=== PATIENT | female | born 1960 | race Caucasian/White ===

== ENCOUNTER 2016-12-13 14:10 | Emergency (ER) | payer BC, OTHER ==
[2016-12-13 14:19] VITALS: BP 146/75; PULSE 74; RESP 20; TEMP 97.8
[2016-12-13] MEDS ORDERED: ONDANSETRON 4 MG ODT STARTER PACK 2 TAB BTL PO STA (15:26)
--- NOTE | 2016-12-13 15:30 | ED ---
General Adult HPI - General Chief complaint: Recheck/Abnormal Lab/Rx Stated complaint: poss infection Time Seen by Provider: 12/13/16 15:11 Source: patient, RN notes reviewed Mode of arrival: ambulatory Limitations: no limitations - History of Present Illness Initial comments: Patient is a 56-year-old female who presents emergency room today with a chief complaint of an abscess located to the left side of her upper thigh. She does admit that she shaved in this area. She states it was A few days ago. Went to urgent care who did try to drain it. States started on Bactrim and states that she took 2 doses felt that her tongue was somewhat numb. States she stopped taking Bactrim yesterday morning. States she talked to the family doctor called in a new prescription but she did not take it. States she was worried because she does not want to have another reaction. She states is also worried that this infection may be getting worse. She states that it is not as read or tenderness was. She is worried that it could be anterior "blood stream". Patient denies any recent fever, chills, shortness of breath, chest pain, back pain, abdominal pain, nausea or vomiting, numbness or tingling, dysuria or hematuria, constipation or diarrhea, headaches or visual changes, or any other complaints. - Related Data Home Medications Medication Instructions Recorded Confirmed Lovastatin [Mevacor] 40 mg PO HS 05/15/14 11/27/14 SUMAtriptan SUCCINATE [Imitrex] 50 mg PO ONCE 05/15/14 11/27/14 ALPRAZolam [Xanax] 0.25 mg PO DAILY PRN 12/13/16 12/13/16 Biotin 5 mg PO DAILY 12/13/16 12/13/16 Cholecalciferol [Vitamin D3] 1,000 unit PO DAILY 12/13/16 12/13/16 Fluticasone Nasal [place] [Flonase 1 spray EA NOSTRIL DAILY 12/13/16 12/13/16 Nasal [place]] HYDROcodone/APAP 5-325MG [[place] 0.5 tab PO Q4H PRN 12/13/16 12/13/16 5-325] L.acidoph,Paracasei, B.lactis 1 cap PO DAILY 12/13/16 12/13/16 [Probiotic] Levothyroxine Sodium [Synthroid] 75 mcg PO DAILY 12/13/16 12/13/16 Loratadine [Claritin] 10 mg PO DAILY PRN 12/13/16 12/13/16 Multivitamins, Thera [Multivitamin 1 tab PO DAILY 12/13/16 12/13/16 (formulary)] Vitamin B Chewable 1 tab PO DAILY 12/13/16 12/13/16 Previous Rx's Medication Instructions Recorded Bacitracin Oint 28.4 gm TOPICAL BID #1 tube 12/13/16 Allergies Allergy/AdvReac Type Severity Reaction Status Date / Time cefuroxime axetil Allergy Unknown Verified 12/13/16 15:16 [From Ceftin] sulfamethoxazole Allergy Unknown Verified 12/13/16 15:16 [From Bactrim] trimethoprim [From Bactrim] Allergy Unknown Verified 12/13/16 15:16 Review of Systems ROS Statement: Those systems with pertinent positive or pertinent negative responses have been documented in the HPI. ROS Other: All systems not noted in ROS Statement are negative. Past Medical History Past Medical History: Hyperlipidemia Additional Past Medical History / Comment(s): hypothyroidism, migraines, History of Any Multi-Drug Resistant Organisms: None Reported Past Surgical History: Section, Hysterectomy Past Psychological History: No Psychological Hx Reported Smoking Status: Former smoker Past Alcohol Use History: None Reported Past Drug Use History: None Reported General Exam - General Exam Comments Initial Comments: General: The patient is awake and alert, in no distress, and does not appear acutely ill. Eye: Pupils are equal, round and reactive to light, extra-ocular movements are intact. No nystagmus. There is normal conjunctiva bilaterally. No signs of icterus. Ears, nose, mouth and throat: There are moist mucous membranes and no oral lesions. Neck: The neck is supple, there is no tenderness or JVD. Cardiovascular: There is a regular rate and rhythm. No murmur, rub or gallop is appreciated. Respiratory: Lungs are clear to auscultation, respirations are non-labored, breath sounds are equal. No wheezes, stridor, rales, or rhonchi. Musculoskeletal: Normal ROM, no tenderness. Strength 5/5. Sensation intact. Pulses equal bilaterally 2+. Neurological: A&O x 3. CN II-XII intact, There are no obvious motor or sensory deficits. Coordination appears grossly intact. Speech is normal. Skin: He does have small abscess located left upper medial thigh. No fluctuance. Local redness. Psychiatric: Cooperative, appropriate mood & affect, normal judgment. Limitations: no limitations Course Vital Signs 12/13/16 14:16 Temperature 97.8 F Pulse Rate 74 Respiratory 20 Rate Blood Pressure 146/75 O2 Sat by Pulse 98 Oximetry Medical Decision Making - Medical Decision Making At this time is no sign for increase or worsening of symptoms. Patient vitals are stable. Patient's only had 2 doses of antibiotic. Patient advised to use new antibiotic as prescribed to discontinue. Prescribed antibiotics. Advised to use a topical antibiotic along with warm compresses to the area. Advised to return to emergency room symptoms increase or worsen. Disposition Clinical Impression: Abscess Disposition: HOME SELF-CARE Condition: Good Instructions: Abscess (ED) Additional Instructions: Please use topical antibiotics as prescribed. Please use antibiotic that was prescribed for the family doctor but discontinue the Bactrim. Please use warm compresses to the affected area. Please follow-up with family doctor in the next 2 days of symptoms have not improved. Please return to emergency room if the symptoms increase or worsen or for any other concerns. Prescriptions: Bacitracin Oint 28.4 gm TOPICAL BID #1 tube Time of Disposition: 15:28
== END 2016-12-13 15:51 | disposition home or self-care (01) ==
LOC: EC 14:10
DX: L02.416 Cutaneous abscess of left lower limb (principal); R20.0 Anesthesia of skin; E78.5 Hyperlipidemia, unspecified; E03.9 Hypothyroidism, unspecified; Z87.891 Personal history of nicotine dependence; Z79.51 Long term (current) use of inhaled steroids; Z79.899 Other long term (current) drug therapy; Z88.1 Allergy status to other antibiotic agents; Z86.69 Personal history of other diseases of the nervous system and sense organs
CPT/HCPCS: 99283; S0119; 99282

== ENCOUNTER → 2018-01-23 | Outpatient (CLI) | payer BC, OTHER ==
--- NOTE | 2018-01-23 15:18 | CT ---
EXAMINATION TYPE: CT brain wo/w con DATE OF EXAM: 01/23/2018 COMPARISON: CT brain June 12, 2010 HISTORY: White cloud over right eye for approximately 3 minutes. Unspecified visual field defects per order. CT DLP: 2149 mGycm Automated exposure control for dose reduction was used. CONTRAST: CT scan of the head is performed without and with IV Contrast, patient injected with 100 mL of Isovue M300. FINDINGS: Noncontrast images show no acute intracranial hemorrhage, mass effect, or midline shift. Zeng-white m atter differentiation is maintained. Ventricles and sulci are normal in size. Postcontrast images jani w no suspicious enhancing intraparenchymal mass. The globes are intact bilaterally. Intraconal fat is preserved. Visualized paranasal sinuses remain clear. IMPRESSION: Unremarkable study. No significant finding is seen to account for patient's symptoms.
== END | disposition home or self-care (01) ==
LOC: RADCTMAIN 12:55
PROVIDERS: ATTEND Family Medicine
DX: H53.40 Unspecified visual field defects (principal)
CPT/HCPCS: 70470; Q9967

== ENCOUNTER 2020-06-22 01:30 | Emergency (ER) | payer BC, OTHER ==
[2020-06-22] MEDS ORDERED: SODIUM CHLORIDE 0.9% 1,000 ML IV STA (01:43)
--- NOTE | 2020-06-22 01:44 | ED ---
Syncope HPI - General Chief Complaint: Fall Stated Complaint: Syncopal Episode Time Seen by Provider: 06/22/20 01:43 Source: patient, RN notes reviewed, old records reviewed Mode of arrival: wheelchair Limitations: no limitations - History of Present Illness Initial Comments: This is a 5-year-old female DF for evaluation of syncopal event. Hour to 2 pr ior to arrival. Patient was at work normal night he began to feel little sweaty, no headache chest pain shortness of breath, patient did fall onto the ground did hit her neck at some neck pain. Patient is no prior history of syncopal event no current headache chest pain or shortness of breath. Patient has been relatively little medical history no history of travel, no current chest pain shortness of breath or abdominal pain. MD Complaint: loss of consciousness, collapsed -: hour(s) Prodromal Symptoms: vision changes, lightheaded, palpitations, diaphoresis -: second(s) Witnessed: yes - by bystander Injuries Sustained Associated with Event: Neck Current Symptoms: back to baseline Context: at rest - Related Data Home Medications Medication Instructions Recorded Confirmed Lovastatin [Mevacor] 40 mg PO HS 05/15/14 12/13/16 SUMAtriptan succinate [Imitrex] 50 mg PO ONCE 05/15/14 12/13/16 ALPRAZolam [Xanax] 0.25 mg PO DAILY PRN 12/13/16 12/13/16 Biotin 5 mg PO DAILY 12/13/16 12/13/16 Cholecalciferol [Vitamin D3] 1,000 unit PO DAILY 12/13/16 12/13/16 Fluticasone Nasal [place] [Flonase 1 spray EA NOSTRIL DAILY 12/13/16 12/13/16 Nasal [place]] HYDROcodone/APAP 5-325MG [[place] 0.5 tab PO Q4H PRN 12/13/16 12/13/16 5-325] L.acidoph,Paracasei, B.lactis 1 cap PO DAILY 12/13/16 12/13/16 [Probiotic] Levothyroxine Sodium [Synthroid] 75 mcg PO DAILY 12/13/16 12/13/16 Loratadine [Claritin] 10 mg PO DAILY PRN 12/13/16 12/13/16 Multivitamins, Thera [Multivitamin 1 tab PO DAILY 12/13/16 12/13/16 (formulary)] Vitamin B Chewable 1 tab PO DAILY 12/13/16 12/13/16 Previous Rx's Medication Instructions Recorded Bacitracin Zinc Oint 28.4 gm TOPICAL BID #1 tube 12/13/16 Allergies Allergy/AdvReac Type Severity Reaction Status Date / Time cefuroxime axetil Allergy Unknown Verified 06/22/20 01:41 [From Ceftin] sulfamethoxazole Allergy Unknown Verified 06/22/20 01:41 [From Bactrim] trimethoprim [From Bactrim] Allergy Unknown Verified 06/22/20 01:41 Review of Systems ROS Statement: Those systems with pertinent positive or pertinent negative responses have been documented in the HPI. ROS Other: All systems not noted in ROS Statement are negative. 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 Absent: scleral icterus, conjunctival injection, periorbital swelling ENT exam: Present: normal exam, mucous membranes moist Neck exam: Present: normal inspection. Absent: tenderness, meningismus, lymphadenopathy Respiratory exam: Present: normal lung sounds bilaterally. Absent: respiratory distress, wheezes, rales, rhonchi, stridor Cardiovascular Exam: Present: regular rate, normal rhythm, normal heart sounds. Absent: systolic murmur, diastolic murmur, rubs, gallop, clicks GI/Abdominal exam: Present: soft, normal bowel sounds. Absent: distended, tenderness, guarding, rebound, rigid Extremities exam: Present: normal inspection, full ROM, normal capillary refill. Absent: tenderness, pedal edema, joint swelling, calf tenderness Back exam: Present: normal inspection Neurological exam: Present: alert, oriented X3, CN II-XII intact Psychiatric exam: Present: normal affect, normal mood Skin exam: Present: warm, dry, intact, normal color. Absent: rash Course Vital Signs 06/22/20 06/22/20 01:32 03:00 Temperature 98 F 98.4 F Pulse Rate 84 91 Respiratory 18 16 Rate Blood Pressure 115/76 112/70 O2 Sat by Pulse 100 100 Oximetry - Reevaluation(s) Reevaluation #1: 06/22/20 03:51 Medical records reviewed Reevaluation #2: 06/22/20 03:51 No recurrent syncope here in the ER Reevaluation #3: 06/22/20 03:51 Patient has no current pain no symptoms, no headache chest pain shortness breath or abdominal pain Reevaluation #4: 06/22/20 03:51 Spoke patient regarding findings and results, feels good for discharge EKG Findings - EKG Comments: EKG Findings:: EKG is sinus rhythm rate of 73 NV 18 QRS 80 QTc 420 Medical Decision Making - Medical Decision Making 60 female DF for evaluation patient Dese for evaluation regards to syncopal event with fall. No injury from fall no cause of syncope found. Patient can be discharged home - Lab Data Result diagrams: 06/22/20 01:55 06/22/20 01:55 Lab Results 06/22/20 06/22/20 06/22/20 Range/Units 01:55 01:55 01:55 WBC 12.0 H (3.8-10.6) k/uL RBC 4.81 (3.80-5.40) m/uL Hgb 13.9 (11.4-16.0) gm/dL Hct 43.2 (34.0-46.0) % MCV 89.8 (80.0-100.0) fL MCH 29.0 (25.0-35.0) pg MCHC 32.3 (31.0-37.0) g/dL RDW 12.4 (11.5-15.5) % Plt Count 372 (150-450) k/uL Neutrophils % 77 % Lymphocytes % 16 % Monocytes % 5 % Eosinophils % 1 % Basophils % 1 % Neutrophils # 9.2 H (1.3-7.7) k/uL Lymphocytes # 2.0 (1.0-4.8) k/uL Monocytes # 0.6 (0-1.0) k/uL Eosinophils # 0.2 (0-0.7) k/uL Basophils # 0.1 (0-0.2) k/uL D-Dimer 0.27 (<0.60) mg/L FEU Sodium 134 L (137-145) mmol/L Potassium 3.8 (3.5-5.1) mmol/L Chloride 99 (98-107) mmol/L Carbon Dioxide 27 (22-30) mmol/L Anion Gap 8 mmol/L BUN 14 (7-17) mg/dL Creatinine 0.72 (0.52-1.04) mg/dL Est GFR (CKD-EPI)AfAm >90 (>60 ml/min/1.73 sqM) Est GFR (CKD-EPI)NonAf >90 (>60 ml/min/1.73 sqM) Glucose 107 H (74-99) mg/dL Calcium 10.1 (8.4-10.2) mg/dL Phosphorus 4.3 (2.5-4.5) mg/dL Magnesium 2.2 (1.6-2.3) mg/dL Total Bilirubin 0.5 (0.2-1.3) mg/dL AST 32 (14-36) U/L ALT 18 (4-34) U/L Alkaline Phosphatase 98 (38-126) U/L Creatine Kinase 62 (30-135) U/L Troponin I (0.000-0.034) ng/mL NT-Pro-B Natriuret Pep pg/mL Total Protein 8.2 (6.3-8.2) g/dL Albumin 5.1 H (3.5-5.0) g/dL 06/22/20 06/22/20 Range/Units 01:55 01:55 WBC (3.8-10.6) k/uL RBC (3.80-5.40) m/uL Hgb (11.4-16.0) gm/dL Hct (34.0-46.0) % MCV (80.0-100.0) fL MCH (25.0-35.0) pg MCHC (31.0-37.0) g/dL RDW (11.5-15.5) % Plt Count (150-450) k/uL Neutrophils % % Lymphocytes % % Monocytes % % Eosinophils % % Basophils % % Neutrophils # (1.3-7.7) k/uL Lymphocytes # (1.0-4.8) k/uL Monocytes # (0-1.0) k/uL Eosinophils # (0-0.7) k/uL Basophils # (0-0.2) k/uL D-Dimer (<0.60) mg/L FEU Sodium (137-145) mmol/L Potassium (3.5-5.1) mmol/L Chloride (98-107) mmol/L Carbon Dioxide (22-30) mmol/L Anion Gap mmol/L BUN (7-17) mg/dL Creatinine (0.52-1.04) mg/dL Est GFR (CKD-EPI)AfAm (>60 ml/min/1.73 sqM) Est GFR (CKD-EPI)NonAf (>60 ml/min/1.73 sqM) Glucose (74-99) mg/dL Calcium (8.4-10.2) mg/dL Phosphorus (2.5-4.5) mg/dL Magnesium (1.6-2.3) mg/dL Total Bilirubin (0.2-1.3) mg/dL AST (14-36) U/L ALT (4-34) U/L Alkaline Phosphatase (38-126) U/L Creatine Kinase (30-135) U/L Troponin I <0.012 (0.000-0.034) ng/mL NT-Pro-B Natriuret Pep 61 pg/mL Total Protein (6.3-8.2) g/dL Albumin (3.5-5.0) g/dL - Radiology Data Radiology results: report reviewed (CT brain C-spine negative for acute disease), image reviewed Disposition Clinical Impression: Syncope, Fall Disposition: HOME SELF-CARE Condition: Good Instructions (If sedation given, give patient instructions): Syncope (ED) Is patient prescribed a controlled substance at d/c from ED?: No Referrals: Chevy Wilson DO [Primary Care Provider] - 1-2 days
[2020-06-22 02:15] LABS: Basophils # (A) 0.1 k/uL (0-0.2); Basophils % (A) 1 %; Eosinophils # (A) 0.2 k/uL (0-0.7); Eosinophils % (A) 1 %; HCT 43.2 % (34.0-46.0); HGB 13.9 gm/dL (11.4-16.0); Lymphocytes % (A) 16 %; MCHC 32.3 g/dL (31.0-37.0); MCV 89.8 fL (80.0-100.0); Mean Platelet Volume 6.7; Monocytes # (A) 0.6 k/uL (0-1.0); Monocytes % (A) 5 %; Neutrophils # (A) 9.2 k/uL (1.3-7.7); Neutrophils % (A) 77 %; Platelet Count 372 k/uL (150-450); RBC 4.81 m/uL (3.80-5.40); RDW 12.4 % (11.5-15.5)
[2020-06-22 02:24] LABS: ALT 18 U/L (4-34); AST 32 U/L (14-36); African American GFR (CKD) >90 (>60 ml/min/1.73 sqM); Albumin 5.1 g/dL (3.5-5.0); Alkaline Phosphatase 98 U/L (38-126); Anion Gap 8 mmol/L; Blood Urea Nitrogen 14 mg/dL (7-17); Calcium 10.1 mg/dL (8.4-10.2); Carbon Dioxide 27 mmol/L (22-30); Chloride 99 mmol/L (98-107); Creatine Kinase 62 U/L (30-135); Glucose 107 mg/dL (74-99); Magnesium 2.2 mg/dL (1.6-2.3); Non-African American GFR(CKD) >90 (>60 ml/min/1.73 sqM); Phosphorus 4.3 mg/dL (2.5-4.5); Potassium 3.8 mmol/L (3.5-5.1); Sodium 134 mmol/L (137-145); Total Bilirubin 0.5 mg/dL (0.2-1.3); Total Protein 8.2 g/dL (6.3-8.2)
--- NOTE | 2020-06-22 02:51 | CT ---
EXAM: CT Head Without Intravenous Contrast CLINICAL HISTORY: Trauma in fall. TECHNIQUE: Axial computed tomography images of the head/brain without intravenous contrast. CTDI is 6 45.285 mGy and DLP is 1039.5 mGy-cm. This CT exam was performed using one or more of the following dose reduction techniques: automated exposure control, adjustment of the mA and/or kV according to patient size, and/or use of iterative reconstruction technique. COMPARISON: No relevant prior studies available. FINDINGS: Brain: Unremarkable. No acute intracranial hemorrhage, edema or abnormal mass-effect. Ventricles: Unremarkable. No ventriculomegaly. Bones/joints: Unremarkable. No acute fracture. Soft tissues: Unremarkable. Sinuses: Unremarkable as visualized. No acute sinusitis. Mastoid air cells: Unremarkable as visualized. No mastoid effusion. IMPRESSION: Negative head/brain CT. EXAM: CT Cervical Spine Without Intravenous Contrast CLINICAL HISTORY: Trauma in fall. TECHNIQUE: Axial computed tomography images of the cervical spine without intravenous contrast. CTDI is 8.585 mGy and DLP is 242.6 mGy-cm. This CT exam was performed using one or more of the following dose reduction techniques: automated exposure control, adjustment of the mA and/or kV according to patient size, and/or use of iterative reconstruction technique. COMPARISON: No relevant prior studies available. FINDINGS: Vertebrae: Unremarkable. No acute fracture. Discs/spinal canal/neural foramina: Mild to moderate degenerative disc disease at multiple levels. No spinal canal stenosis. Soft tissues: Unremarkable. IMPRESSION: No acute findings in the cervical spine.
[2020-06-22 03:50] VITALS: RESP 16
[2020-06-22] MEDS ORDERED: KETOROLAC 15 MG/ML 1 ML VIAL IVP STA (03:50)
[2020-06-22] MEDS ORDERED: ACETAMINOPHEN TAB 500 MG TAB PO STA (03:50)
[2020-06-22 04:08] VITALS: BP 116/67; PULSE 89; TEMP 98
== END 2020-06-22 04:00 | disposition home or self-care (01) ==
LOC: EC 01:30
DX: R55 Syncope and collapse (principal); E78.5 Hyperlipidemia, unspecified; E03.9 Hypothyroidism, unspecified; G43.909 Migraine, unspecified, not intractable, without status migrainosus; M54.2 Cervicalgia; H40.9 Unspecified glaucoma; Z79.899 Other long term (current) drug therapy; Z79.890 Hormone replacement therapy; Z87.891 Personal history of nicotine dependence; Z88.1 Allergy status to other antibiotic agents; Z88.2 Allergy status to sulfonamides; Z86.14 Personal history of Methicillin resistant Staphylococcus aureus infection; W18.39XA Other fall on same level, initial encounter; Y92.69 Other specified industrial and construction area as the place of occurrence of the external cause
CPT/HCPCS: 36415; 93005; 85379; 83880; 80053; 82550; 83735; 84100; 84484; 85025; 72125; 70450; 99285; 96374; 96361; J1885

== ENCOUNTER → 2020-07-21 | Outpatient (CLI) | payer BC, OTHER ==
--- NOTE | 2020-07-30 14:58 | EM ---
7 day event monitor note: Procedure details: Patient worn event monitor for 7 days from 07/21/2020 until 07/28/2020. Findings: Event monitor showed normal sinus rhythm throughout the duration of the 7 days. There were no significant bradycardic episodes or pauses. Fastest heart rate was 150 which corresponded with sinus tachycardia. There were no significant supraventricular tachycardic episodes. No significant ventricular episodes or PVCs. Patient had symptom activated events which corresponded with sinus rhythm. [facility]
== END | disposition home or self-care (01) ==
LOC: RADECHMAIN 11:55
PROVIDERS: ATTEND Family Medicine
DX: R55 Syncope and collapse (principal)
CPT/HCPCS: 93270

== ENCOUNTER → 2020-07-29 | Outpatient (CLI) | payer BC, OTHER ==
--- NOTE | 2020-07-30 15:15 | EEG ---
ELECTROENCEPHALOGRAM REPORT DATE OF SERVICE: 07/29/2020. PREAMBLE: This is a 60-year-old female who had a syncopal spell at work. She was feeling flushed in her neck and started to sweat a lot. She went to the bathroom and woke up a couple of minutes later on the floor. She was taken to the ER. CURRENT MEDICATIONS: Multivitamins, vitamin B, Imitrex, thyroid. EEG FINDINGS: This is a 21-channel routine EEG recording in a patient utilizing 10-20 international system with referential and bipolar montages. Background consists of well developed, well regulated, moderate voltage activity in mixed frequencies of 9-10 hertz alpha with some low-voltage fast frequency beta activity. Background is posterior-dominant and reactive to eye opening and closing. Photic driving response was seen with some flash frequencies. During drowsiness, intermittent left or right temporal theta and sometimes bitemporal theta activity was seen. Some sharply contoured waves were were seen. Deeper stages of sleep were not seen. No definitive focal or generalized epileptiform activity was seen. EKG rhythm lead revealed no obvious arrhythmia. IMPRESSION: This is an abnormal EEG due to intermittent rhythmic and dysrhythmic theta involving bilateral temporal region, independent and bisynchronous. This is suggestive of focal cortical neuronal dysfunction in above-described location. May suggest underlying structural abnormality. Some sharply contoured waves were seen in either temporal region, may suggest underlying cortical irritability. Suggest prolonged EEG for further evaluation. Slightly excessive low voltage fast frequency beta activity was also seen, suggestive of medication effect. MMODL / IJN: [id number] / MTDD
== END | disposition home or self-care (01) ==
LOC: NEUROMAIN 13:42
PROVIDERS: ATTEND Family Medicine
DX: R94.01 Abnormal electroencephalogram [EEG] (principal); R55 Syncope and collapse
CPT/HCPCS: 95816

== ENCOUNTER 2020-09-22 08:29 | Emergency (ER) | payer BC, OTHER ==
[2020-09-22 08:39] VITALS: RESP 18
--- NOTE | 2020-09-22 08:56 | ED ---
ENT HPI - General Chief complaint: ENT Stated complaint: Ear pain and tremors Time Seen by Provider: 09/22/20 08:30 Source: patient, EMS, RN notes reviewed Mode of arrival: EMS Limitations: no limitations - History of Present Illness Initial comments: This is a 60-year-old female with a recent diagnosis of a upper respiratory infection and ear infection and route by EMS today because of no improvement in her sinus congestion and right ear pain and also shaking generally that occurred this morning. 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 No nausea no vomiting shakes were brief. There are bilaterally or not unilateral she denies any focal sensorimotor vascular deficits. No palpitations no cough or phlegm production she does have a soreness about her neck. - Related Data Home Medications Medication Instructions Recorded Confirmed SUMAtriptan succinate [Imitrex] 50 mg PO DAILY PRN 05/15/14 09/22/20 HYDROcodone/APAP 5-325MG [[place] 0.25 tab PO Q4H PRN 12/13/16 09/22/20 5-325] Levothyroxine Sodium [Synthroid] 75 mcg PO DAILY 12/13/16 09/22/20 Multivitamins, Thera [Multivitamin 1 tab PO DAILY 12/13/16 09/22/20 (formulary)] Cholecalciferol [Vitamin D3 (25 1,000 unit PO DAILY 09/22/20 09/22/20 Mcg = 1000 Iu)] Vitamin B Complex 1 cap PO DAILY 09/22/20 09/22/20 Previous Rx's Medication Instructions Recorded Amoxicillin/Potassium Clav 1 tab PO Q12HR 1 Days #20 tab 09/22/20 [Augmentin 875-125 Tablet] Allergies Allergy/AdvReac Type Severity Reaction Status Date / Time cefuroxime axetil Allergy Unknown Verified 09/22/20 10:25 [From Ceftin] sulfamethoxazole Allergy Unknown Verified 09/22/20 10:25 [From Bactrim] trimethoprim [From Bactrim] Allergy Unknown Verified 09/22/20 10:25 Review of Systems ROS Statement: Those systems with pertinent positive or pertinent negative responses have been documented in the HPI. ROS Other: All systems not noted in ROS Statement are negative. Past Medical History Past Medical History: Hyperlipidemia Additional Past Medical History / Comment(s): hypothyroidism, migraines, glycoma History of Any Multi-Drug Resistant Organisms: MRSA Date of last positivie culture/infection: 2018 MDRO Source:: neck Past Surgical History: Section, Hysterectomy Past Psychological History: No Psychological Hx Reported Smoking Status: Former smoker Past Alcohol Use History: None Reported Past Drug Use History: None Reported General Exam - General Exam Comments Initial Comments: This is a well-developed asthenic appearing female who is awake alert oriented 3 Limitations: no limitations General appearance: alert, anxious Head exam: Present: atraumatic, normocephalic, normal inspection Eye exam: Present: normal appearance, PERRL, EOMI. Absent: scleral icterus, conjunctival injection, periorbital swelling ENT exam: Present: other (Both tympanic membranes demonstrate dullness with fluid behind both membranes. Nasal mucosa is boggy erythematous minimal drainage oropharynx reveals hyperemia no exudates.) Neck exam: Present: normal inspection, tenderness (Right cervical lymphadenopathy noted), full ROM, other (No stridor JVD or bruits). Absent: meningismus, lymphadenopathy Respiratory exam: Present: normal lung sounds bilaterally. Absent: respiratory distress, wheezes, rales, rhonchi, stridor Cardiovascular Exam: Present: regular rate, normal rhythm, normal heart sounds. Absent: systolic murmur, diastolic murmur, rubs, gallop, clicks GI/Abdominal exam: Present: soft, normal bowel sounds. Absent: distended, tenderness, guarding, rebound, rigid Extremities exam: Present: normal inspection, full ROM, normal capillary refill. Absent: tenderness, pedal edema, joint swelling, calf tenderness Back exam: Present: normal inspection Neurological exam: Present: alert, oriented X3, CN II-XII intact Psychiatric exam: Present: normal affect, normal mood Skin exam: Present: warm, dry, intact, normal color. Absent: rash Course Vital Signs 09/22/20 09/22/20 08:32 10:39 Temperature 98 F 98.2 F Pulse Rate 86 90 Respiratory 18 18 Rate Blood Pressure 137/90 132/82 O2 Sat by Pulse 100 100 Oximetry Medical Decision Making - Medical Decision Making I did discuss the findings the patient. Patient does have evidence of persistent otitis media with sinusitis. Initial treatment has failed she'll be placed on Augmentin as well as Mucinex we did discuss this. At this time she will also continue her nasal spray. She is a follow-up with her doctor return when necessary this time there seems be no benefit to continuing with oral steroids. - Lab Data Result diagrams: 09/22/20 09:03 09/22/20 09:03 Lab Results 09/22/20 09/22/20 09/22/20 Range/Units 09:03 09:03 09:03 WBC 9.4 (3.8-10.6) k/uL RBC 5.21 (3.80-5.40) m/uL Hgb 15.0 (11.4-16.0) gm/dL Hct 45.3 (34.0-46.0) % MCV 87.0 (80.0-100.0) fL MCH 28.8 (25.0-35.0) pg MCHC 33.1 (31.0-37.0) g/dL RDW 12.6 (11.5-15.5) % Plt Count 527 H (150-450) k/uL MPV 7.0 Neutrophils % 55 % Lymphocytes % 35 % Monocytes % 6 % Eosinophils % 3 % Basophils % 1 % Neutrophils # 5.1 (1.3-7.7) k/uL Lymphocytes # 3.3 (1.0-4.8) k/uL Monocytes # 0.5 (0-1.0) k/uL Eosinophils # 0.2 (0-0.7) k/uL Basophils # 0.1 (0-0.2) k/uL Sodium 140 (137-145) mmol/L Potassium 4.0 (3.5-5.1) mmol/L Chloride 96 L (98-107) mmol/L Carbon Dioxide 33 H (22-30) mmol/L Anion Gap 11 mmol/L BUN 11 (7-17) mg/dL Creatinine 0.68 (0.52-1.04) mg/dL Est GFR (CKD-EPI)AfAm >90 (>60 ml/min/1.73 sqM) Est GFR (CKD-EPI)NonAf >90 (>60 ml/min/1.73 sqM) Glucose 94 (74-99) mg/dL Calcium 10.8 H (8.4-10.2) mg/dL Magnesium 2.1 (1.6-2.3) mg/dL Total Bilirubin 0.5 (0.2-1.3) mg/dL AST 28 (14-36) U/L ALT 24 (4-34) U/L Alkaline Phosphatase 94 (38-126) U/L Creatine Kinase 31 (30-135) U/L Troponin I (0.000-0.034) ng/mL Total Protein 9.1 H (6.3-8.2) g/dL Albumin 5.4 H (3.5-5.0) g/dL Urine Color Colorless Urine Appearance Clear (Clear) Urine pH 7.5 (5.0-8.0) Ur Specific [place] 1.004 (1.001-1.035) Urine Protein Negative (Negative) Urine Glucose (UA) Negative (Negative) Urine Ketones Negative (Negative) Urine Blood Negative (Negative) Urine Nitrite Negative (Negative) Urine Bilirubin Negative (Negative) Urine Urobilinogen <2.0 (<2.0) mg/dL Ur Leukocyte Esterase Negative (Negative) 09/22/20 Range/Units 09:03 WBC (3.8-10.6) k/uL RBC (3.80-5.40) m/uL Hgb (11.4-16.0) gm/dL Hct (34.0-46.0) % MCV (80.0-100.0) fL MCH (25.0-35.0) pg MCHC (31.0-37.0) g/dL RDW (11.5-15.5) % Plt Count (150-450) k/uL MPV Neutrophils % % Lymphocytes % % Monocytes % % Eosinophils % % Basophils % % Neutrophils # (1.3-7.7) k/uL Lymphocytes # (1.0-4.8) k/uL Monocytes # (0-1.0) k/uL Eosinophils # (0-0.7) k/uL Basophils # (0-0.2) k/uL Sodium (137-145) mmol/L Potassium (3.5-5.1) mmol/L Chloride (98-107) mmol/L Carbon Dioxide (22-30) mmol/L Anion Gap mmol/L BUN (7-17) mg/dL Creatinine (0.52-1.04) mg/dL Est GFR (CKD-EPI)AfAm (>60 ml/min/1.73 sqM) Est GFR (CKD-EPI)NonAf (>60 ml/min/1.73 sqM) Glucose (74-99) mg/dL Calcium (8.4-10.2) mg/dL Magnesium (1.6-2.3) mg/dL Total Bilirubin (0.2-1.3) mg/dL AST (14-36) U/L ALT (4-34) U/L Alkaline Phosphatase (38-126) U/L Creatine Kinase (30-135) U/L Troponin I <0.012 (0.000-0.034) ng/mL Total Protein (6.3-8.2) g/dL Albumin (3.5-5.0) g/dL Urine Color Urine Appearance (Clear) Urine pH (5.0-8.0) Ur Specific [place] (1.001-1.035) Urine Protein (Negative) Urine Glucose (UA) (Negative) Urine Ketones (Negative) Urine Blood (Negative) Urine Nitrite (Negative) Urine Bilirubin (Negative) Urine Urobilinogen (<2.0) mg/dL Ur Leukocyte Esterase (Negative) - EKG Data -: EKG Interpreted by Me EKG Comments: Sinus rhythm of 81 appear interval 160 QRS 78 QT since QTC 360/427 evidence of septal infarct of undetermined age. - Radiology Data Radiology results: report reviewed (Imaging reviewed no acute findings), image reviewed Disposition Clinical Impression: Otitis media, Sinusitis Disposition: HOME SELF-CARE Condition: Good Instructions (If sedation given, give patient instructions): Ear Infection (ED), Sinusitis (ED) Additional Instructions: [id number] Mucinex. Continue with your nasal spray. Prescriptions: Amoxicillin/Potassium Clav [Augmentin 875-125 Tablet] 1 tab PO Q12HR 1 Days #20 tab Is patient prescribed a controlled substance at d/c from ED?: No Referrals: Chevy Wilson DO [Primary Care Provider] - 1-2 days
[2020-09-22 09:40] LABS: Basophils # (A) 0.1 k/uL (0-0.2); Basophils % (A) 1 %; Eosinophils # (A) 0.2 k/uL (0-0.7); Eosinophils % (A) 3 %; HCT 45.3 % (34.0-46.0); Lymphocytes # (A) 3.3 k/uL (1.0-4.8); Lymphocytes % (A) 35 %; MCH 28.8 pg (25.0-35.0); MCHC 33.1 g/dL (31.0-37.0); Monocytes # (A) 0.5 k/uL (0-1.0); Monocytes % (A) 6 %; Neutrophils # (A) 5.1 k/uL (1.3-7.7); Neutrophils % (A) 55 %; Platelet Count 527 k/uL (150-450); RBC 5.21 m/uL (3.80-5.40); RDW 12.6 % (11.5-15.5); WBC 9.4 k/uL (3.8-10.6)
[2020-09-22 09:55] LABS: ALT 24 U/L (4-34); African American GFR (CKD) >90 (>60 ml/min/1.73 sqM); Albumin 5.4 g/dL (3.5-5.0); Alkaline Phosphatase 94 U/L (38-126); Carbon Dioxide 33 mmol/L (22-30); Creatine Kinase 31 U/L (30-135); Glucose 94 mg/dL (74-99); Non-African American GFR(CKD) >90 (>60 ml/min/1.73 sqM); Total Protein 9.1 g/dL (6.3-8.2)
--- NOTE | 2020-09-22 09:56 | XR ---
EXAMINATION TYPE: XR chest 2V DATE OF EXAM: 09/22/2020 COMPARISON: Chest x-ray September 06, 2014 HISTORY: Tremors and weakness. TECHNIQUE: Frontal and lateral views of the chest are obtained. FINDINGS: There is mild chronic parenchymal changes bilaterally without suspicious focal air space o pacity, pleural effusion, or pneumothorax seen. The cardiac silhouette size is stable and within nor mal limits. The osseous structures remaining intact. IMPRESSION: No acute pulmonary process. No significant change from prior.
[2020-09-22 09:57] LABS: Appearance,Urine Clear (Clear); Bilirubin,Urine Negative (Negative); Blood,Urine Negative (Negative); Color,Urine Colorless; Glucose,Urine (UA) Negative (Negative); Ketones,Urine Negative (Negative); Leukocyte Esterase,Urine Negative (Negative); Nitrite,Urine Negative (Negative); PH, Urine 7.5 (5.0-8.0); Protein,Urine Negative (Negative); Specific Gravity,Urine 1.004 (1.001-1.035); Urobilinogen,Urine <2.0 mg/dL (<2.0)
[2020-09-22 09:58] LABS: AST 28 U/L (14-36); Anion Gap 11 mmol/L; Blood Urea Nitrogen 11 mg/dL (7-17); Calcium 10.8 mg/dL (8.4-10.2); Chloride 96 mmol/L (98-107); Magnesium 2.1 mg/dL (1.6-2.3); Sodium 140 mmol/L (137-145); Total Bilirubin 0.5 mg/dL (0.2-1.3)
[2020-09-22 10:41] VITALS: BP 132/82; PULSE 90; TEMP 98.2
[2020-09-22] MEDS ORDERED: AMOXIC-POT CLAV 875-125MG 1 EACH TAB PO STA (11:14)
[2020-09-22] MEDS ORDERED: guaiFENesin 600 MG TABLET.ER PO ONE (11:16)
== END 2020-09-22 11:36 | disposition home or self-care (01) ==
LOC: EC 08:29
DX: H66.91 Otitis media, unspecified, right ear (principal); J32.9 Chronic sinusitis, unspecified; E03.9 Hypothyroidism, unspecified; Z79.890 Hormone replacement therapy; Z88.1 Allergy status to other antibiotic agents; Z88.2 Allergy status to sulfonamides; Z87.891 Personal history of nicotine dependence
CPT/HCPCS: 36415; 71046; 80053; 81003; 82550; 83735; 84484; 85025; 87040; 93005; 99284

== ENCOUNTER 2020-11-20 12:18 | Emergency (ER) | payer BC, OTHER ==
[2020-11-20 12:26] VITALS: RESP 18
--- NOTE | 2020-11-20 13:18 | XR ---
EXAMINATION TYPE: XR chest 1V portable DATE OF EXAM: 11/20/2020 COMPARISON: 09/22/2020 HISTORY: Cough TECHNIQUE: Single frontal view of the chest is obtained. FINDINGS the lungs are clear consolidative, interstitial masslike opacity. There is no pleural effusion, pleural thickening or pneumothorax. The heart, pulmonary vasculature, mediastinum and hilum appear normal. The osseous structures and soft tissues are unremarkable. IMPRESSION: No acute cardiopulmonary disease.
--- NOTE | 2020-11-20 13:34 | ED ---
General Adult HPI - General Chief complaint: ENT Stated complaint: Diarrhea/sinus draniage/wants covid test Source: patient Mode of arrival: ambulatory Limitations: no limitations - History of Present Illness Initial comments: 60-year-old female with a past medical history of hypothyroidism, migraines presents to the emergency room for several complaints. Patient's main reason for presenting to the emergency room is for a Covid test. Patient states she was exposed at work. States that she is [facility] a [facility] but does not want to wait. Patient states she has had some congestion that comes and goes. She has had her left ear plugged however this has been going on for 7 months for which she is following with ENT. She has had a slight cough. Today she had 2 episodes of diarrhea. No vomiting. No abdominal pain. No fevers. Patient states she just wants to make sure she does not have Covid because her grandson has asthma and she needs to know if she exposed him.Patient has no other complaints at this time including shortness of breath, chest pain, abdominal pain, nausea or vomiting, headache, or visual changes. - Related Data Home Medications Medication Instructions Recorded Confirmed SUMAtriptan succinate [Imitrex] 50 mg PO DAILY PRN 05/15/14 09/22/20 HYDROcodone/APAP 5-325MG [[place] 0.25 tab PO Q4H PRN 12/13/16 09/22/20 5-325] Levothyroxine Sodium [Synthroid] 75 mcg PO DAILY 12/13/16 09/22/20 Multivitamins, Thera [Multivitamin 1 tab PO DAILY 12/13/16 09/22/20 (formulary)] Cholecalciferol [Vitamin D3 (25 1,000 unit PO DAILY 09/22/20 09/22/20 Mcg = 1000 Iu)] Vitamin B Complex 1 cap PO DAILY 09/22/20 09/22/20 Previous Rx's Medication Instructions Recorded Amoxicillin/Potassium Clav 1 tab PO Q12HR 1 Days #20 tab 09/22/20 [Augmentin 875-125 Tablet] methylPREDNISolone Dose Pack 4 mg PO DIRECTED #21 package 11/20/20 [Medrol Dose Pack] Allergies Allergy/AdvReac Type Severity Reaction Status Date / Time cefuroxime axetil Allergy Unknown Verified 11/20/20 12:26 [From Ceftin] sulfamethoxazole Allergy Unknown Verified 11/20/20 12:26 [From Bactrim] trimethoprim [From Bactrim] Allergy Unknown Verified 11/20/20 12:26 Review of Systems ROS Statement: Those systems with pertinent positive or pertinent negative responses have been documented in the HPI. ROS Other: All systems not noted in ROS Statement are negative. Past Medical History Past Medical History: Hyperlipidemia Additional Past Medical History / Comment(s): hypothyroidism, migraines, glycoma History of Any Multi-Drug Resistant Organisms: MRSA Date of last positivie culture/infection: 2017 MDRO Source:: neck Past Surgical History: Section, Hysterectomy Past Psychological History: No Psychological Hx Reported Smoking Status: Former smoker Past Alcohol Use History: None Reported Past Drug Use History: None Reported General Exam - General Exam Comments Initial Comments: Sitting a chair at bedside, well-appearing Limitations: no limitations General appearance: alert, in no apparent distress Head exam: Present: atraumatic, normocephalic, normal inspection Eye exam: Present: normal appearance, PERRL, EOMI. Absent: scleral icterus, conjunctival injection, periorbital swelling ENT exam: Present: normal exam, normal oropharynx, mucous membranes moist, TM's normal bilaterally, normal external ear exam Neck exam: Present: normal inspection, full ROM. Absent: tenderness, meningismus, lymphadenopathy Respiratory exam: Present: normal lung sounds bilaterally. Absent: respiratory distress, wheezes Cardiovascular Exam: Present: regular rate, normal rhythm, normal heart sounds. Absent: systolic murmur, diastolic murmur, rubs, gallop, clicks GI/Abdominal exam: Present: soft, normal bowel sounds. Absent: distended, tenderness, guarding, rebound, rigid Course Vital Signs 11/20/20 12:23 Temperature 98.4 F Pulse Rate 97 Respiratory 18 Rate Blood Pressure 119/54 O2 Sat by Pulse 100 Oximetry Medical Decision Making - Medical Decision Making Vitals are stable. Patient is well-appearing. Chest x-ray reveals no acute cardiopulmonary disease. Coronavirus is not detected. Patient is requesting a Medrol Dosepak for her ear as this has helped in the past. She is following up with ENT for this. At this time patient likely has a viral upper respiratory infection causing congestion and slight cough. She will return for any worsening symptoms and will otherwise follow-up with her doctor. - Lab Data Lab Results 11/20/20 Range/Units 12:54 Coronavirus (PCR) Not Detected (Not Detectd) Disposition Clinical Impression: Congestion of left ear, Sinus congestion Disposition: HOME SELF-CARE Condition: Good Instructions (If sedation given, give patient instructions): Rhinosinusitis (ED) Additional Instructions: Please take Medrol Dosepak as directed. Continue to use nasal spray. Follow-up with your doctor in one to 2 days. Follow-up at your ENT appointment. Return to the emergency room for any worsening symptoms. Prescriptions: methylPREDNISolone Dose Pack [Medrol Dose Pack] 4 mg PO DIRECTED #21 package Is patient prescribed a controlled substance at d/c from ED?: No Referrals: Chevy Wilson DO [Primary Care Provider] - 1-2 days Time of Disposition: 13:32
[2020-11-20 13:39] VITALS: BP 128/78; PULSE 78; TEMP 97.5
== END 2020-11-20 13:39 | disposition home or self-care (01) ==
LOC: EC 12:18
DX: R09.81 Nasal congestion (principal); H83.8X2 Other specified diseases of left inner ear; R19.7 Diarrhea, unspecified; R05 Cough; Z20.822 Contact with and (suspected) exposure to COVID-19; E03.9 Hypothyroidism, unspecified; G43.909 Migraine, unspecified, not intractable, without status migrainosus; E78.5 Hyperlipidemia, unspecified; Z79.899 Other long term (current) drug therapy; Z79.890 Hormone replacement therapy; Z79.891 Long term (current) use of opiate analgesic; Z88.2 Allergy status to sulfonamides; Z88.1 Allergy status to other antibiotic agents; Z90.710 Acquired absence of both cervix and uterus; Z86.14 Personal history of Methicillin resistant Staphylococcus aureus infection; Z87.891 Personal history of nicotine dependence; Z82.5 Family history of asthma and other chronic lower respiratory diseases
CPT/HCPCS: 71045; 87635; 99284

== ENCOUNTER 2020-11-23 13:03 | Emergency (ER) | payer BC, OTHER ==
[2020-11-23 13:13] VITALS: BP 125/78; PULSE 103; TEMP 98.3
--- NOTE | 2020-11-23 13:59 | ED ---
General Adult HPI - General Chief complaint: Upper Respiratory Infection Stated complaint: revisit - ENT Time Seen by Provider: 11/23/20 13:05 Source: patient, RN notes reviewed, old records reviewed Mode of arrival: ambulatory Limitations: no limitations - History of Present Illness Initial comments: This is a 60-year-old female presents emergency Department complaining that she's had a three-day history of diarrhea and fatigue. Patient states she has quite a bit of exposure to COVID. Patient denies any fever currently which she thinks couple days ago she may have had a fever. Patient denies any cough or congestion or shortness of breath. Patient states she does have a sore throat however. Patient also states that she has a little urinary frequency. Patient denies any abdominal pain. Patient denies any vomiting. Patient denies any chest pain or palpitations. Patient denies lightheadedness or dizziness. - Related Data Home Medications Medication Instructions Recorded Confirmed SUMAtriptan succinate [Imitrex] 50 mg PO DAILY PRN 05/15/14 09/22/20 HYDROcodone/APAP 5-325MG [[place] 0.25 tab PO Q4H PRN 12/13/16 09/22/20 5-325] Levothyroxine Sodium [Synthroid] 75 mcg PO DAILY 12/13/16 09/22/20 Multivitamins, Thera [Multivitamin 1 tab PO DAILY 12/13/16 09/22/20 (formulary)] Cholecalciferol [Vitamin D3 (25 1,000 unit PO DAILY 09/22/20 09/22/20 Mcg = 1000 Iu)] Vitamin B Complex 1 cap PO DAILY 09/22/20 09/22/20 Previous Rx's Medication Instructions Recorded Amoxicillin/Potassium Clav 1 tab PO Q12HR 1 Days #20 tab 09/22/20 [Augmentin 875-125 Tablet] methylPREDNISolone Dose Pack 4 mg PO DIRECTED #21 package 11/20/20 [Medrol Dose Pack] Allergies Allergy/AdvReac Type Severity Reaction Status Date / Time cefuroxime axetil Allergy Unknown Verified 11/23/20 13:13 [From Ceftin] sulfamethoxazole Allergy Unknown Verified 11/23/20 13:13 [From Bactrim] trimethoprim [From Bactrim] Allergy Unknown Verified 11/23/20 13:13 Review of Systems ROS Statement: Those systems with pertinent positive or pertinent negative responses have been documented in the HPI. ROS Other: All systems not noted in ROS Statement are negative. Past Medical History Past Medical History: Hyperlipidemia, Thyroid Disorder Additional Past Medical History / Comment(s): hypothyroidism, migraines, glycoma History of Any Multi-Drug Resistant Organisms: MRSA Date of last positivie culture/infection: 2017 MDRO Source:: neck Past Surgical History: Section, Hysterectomy Past Psychological History: No Psychological Hx Reported Smoking Status: Former smoker Past Alcohol Use History: None Reported Past Drug Use History: None Reported General Exam - General Exam Comments Initial Comments: GENERAL: Patient is well-developed and well-nourished. Patient is nontoxic and well- hydrated and is in no acute distress. ENT: Neck is soft and supple. No significant lymphadenopathy is noted. Oropharynx is clear. Moist mucous membranes. Neck has full range of motion without eliciting any pain. EYES: The sclera were anicteric and conjunctiva were pink and moist. Extraocular movements were intact and pupils were equal round and reactive to light. Eyelids were unremarkable. PULMONARY: Unlabored respirations. Good breath sounds bilaterally. No audible rales rhonchi or wheezing was noted. CARDIOVASCULAR: There is a regular rate and rhythm without any murmurs gallops or rubs. ABDOMEN: Soft and nontender with normal bowel sounds. SKIN: Skin is clear with no lesions or rashes and otherwise unremarkable. NEUROLOGIC: Patient is alert and oriented x3. Cranial nerves II through XII are grossly intact. Motor and sensory are also intact. Normal speech, volume and content. Symmetrical smile. MUSCULOSKELETAL: Normal extremities with adequate strength and full range of motion. LYMPHATICS: No significant lymphadenopathy is noted PSYCHIATRIC: Normal psychiatric evaluation. Limitations: no limitations Course Vital Signs 11/23/20 11/23/20 13:05 14:12 Temperature 98.3 F Pulse Rate 103 H Respiratory 20 18 Rate Blood Pressure 125/78 O2 Sat by Pulse 99 Oximetry Medical Decision Making - Medical Decision Making Patient is COVID positive. Patient is strep negative. Patient's urine is clean. - Lab Data Lab Results 11/23/20 11/23/20 11/23/20 Range/Units 14:04 14:04 14:04 Urine Color Light Yellow Urine Appearance Clear (Clear) Urine pH 6.0 (5.0-8.0) Ur Specific [place] 1.009 (1.001-1.035) Urine Protein Negative (Negative) Urine Glucose (UA) Negative (Negative) Urine Ketones Negative (Negative) Urine Blood Negative (Negative) Urine Nitrite Negative (Negative) Urine Bilirubin Negative (Negative) Urine Urobilinogen <2.0 (<2.0) mg/dL Ur Leukocyte Esterase Trace H (Negative) Urine RBC 1 (0-5) /hpf Urine WBC 2 (0-5) /hpf Coronavirus (PCR) Detected A (Not Detectd) Group A Strep Rapid Negative (Negative) Disposition Clinical Impression: COVID-19 Disposition: HOME SELF-CARE Condition: Good Instructions (If sedation given, give patient instructions): Coronavirus Disease 2019 (COVID-19) Is patient prescribed a controlled substance at d/c from ED?: No Referrals: Chevy Wilson DO [Primary Care Provider] - 1-2 days Time of Disposition: 15:11
[2020-11-23 14:14] VITALS: RESP 18
[2020-11-23 14:43] LABS: Appearance,Urine Clear (Clear); Bilirubin,Urine Negative (Negative); Blood,Urine Negative (Negative); Color,Urine Light Yellow; Glucose,Urine (UA) Negative (Negative); Ketones,Urine Negative (Negative); Leukocyte Esterase,Urine Trace (Negative); Nitrite,Urine Negative (Negative); Protein,Urine Negative (Negative); RBC,Urine 1 /hpf (0-5); Specific Gravity,Urine 1.009 (1.001-1.035); Urobilinogen,Urine <2.0 mg/dL (<2.0); WBC,Urine 2 /hpf (0-5)
== END 2020-11-23 15:22 | disposition home or self-care (01) ==
LOC: EC 13:03
DX: U07.1 COVID-19 (principal); E03.9 Hypothyroidism, unspecified; G43.909 Migraine, unspecified, not intractable, without status migrainosus; Z79.890 Hormone replacement therapy; Z88.2 Allergy status to sulfonamides; Z88.1 Allergy status to other antibiotic agents; Z87.891 Personal history of nicotine dependence
CPT/HCPCS: 81001; 87081; 87430; 87635; 99284

== ENCOUNTER 2020-11-26 14:02 | Emergency (ER) | payer BC, OTHER ==
[2020-11-26 14:18] VITALS: TEMP 98
--- NOTE | 2020-11-26 14:47 | XR ---
EXAMINATION TYPE: XR chest 2V DATE OF EXAM: 11/26/2020 COMPARISON: 11/20/2020 TECHNIQUE: PA and lateral views submitted. HISTORY: Shortness of breath FINDINGS: The lungs are clear and there is no pneumothorax, pleural effusion, or focal pneumonia. Hyperinflati on. Heart size normal. No overt failure. Arthropathy of the shoulders. Degenerative change of the spi ne. IMPRESSION: 1. COPD.
--- NOTE | 2020-11-26 16:48 | ED ---
General Adult HPI - General Source: patient Mode of arrival: ambulatory Limitations: no limitations <Fer Dlae - Last Filed: 11/26/20 17:11> <Lindsay Veliz - Last Filed: 12/01/20 13:08> - General Chief complaint: Upper Respiratory Infection Stated complaint: Revisit Wheezing Time Seen by Provider: 11/26/20 16:04 - History of Present Illness Initial comments: 60-year-old female with a past medical history of hyperlipidemia, hypothyroidism presents to the emergency room for a chief complaint of cough. Patient reports that she tested positive for Covid 2 days ago. States that she did not have a chest x-ray at that time. Patient presents that she felt like she was maybe wheezing when she took a deep breath. No history of asthma. Patient reports she called her doctor and her doctor sent her in to get a chest x-ray. Patient denies shortness of breath. Denies nausea but does admit to diarrhea has been ongoing for the past 3 days. No fevers that she is aware of. she is already on steroids at home by PCP. Patient has no other complaints at this time including shortness of breath, chest pain, abdominal pain, nausea or vomiting, headache, or visual changes. (Fer Dale) - Related Data Home Medications Medication Instructions Recorded Confirmed SUMAtriptan succinate [Imitrex] 50 mg PO DAILY PRN 05/15/14 11/26/20 Levothyroxine Sodium [Synthroid] 75 mcg PO DAILY 12/13/16 11/26/20 Albuterol Inhaler [Ventolin Hfa 1 puff INHALATION RT-Q4H PRN 11/26/20 11/26/20 Inhaler] Ascorbic Acid [Vitamin C] 1,000 mg PO DAILY 11/26/20 11/26/20 Azithromycin [Zithromax] 500 mg PO DAILY 11/26/20 11/26/20 Hydroxychloroquine Sulfate 200 mg PO BID 11/26/20 11/26/20 [Plaquenil] Zinc 50 mg PO DAILY 11/26/20 11/26/20 Allergies Allergy/AdvReac Type Severity Reaction Status Date / Time cefuroxime axetil Allergy Unknown Verified 11/26/20 17:29 [From Ceftin] sulfamethoxazole Allergy Unknown Verified 11/26/20 17:29 [From Bactrim] trimethoprim [From Bactrim] Allergy Unknown Verified 11/26/20 17:29 Review of Systems ROS Other: All systems not noted in ROS Statement are negative. <Tiffanie Daleey Ramsey - Last Filed: 11/26/20 17:11> ROS Other: All systems not noted in ROS Statement are negative. <Lindsay Veliz Marek - Last Filed: 12/01/20 13:08> ROS Statement: Those systems with pertinent positive or pertinent negative responses have been documented in the HPI. Past Medical History Past Medical History: Hyperlipidemia, Thyroid Disorder Additional Past Medical History / Comment(s): hypothyroidism, migraines, glycoma History of Any Multi-Drug Resistant Organisms: MRSA Date of last positivie culture/infection: 2018 MDRO Source:: neck Past Surgical History: Section, Hysterectomy Past Psychological History: No Psychological Hx Reported Smoking Status: Former smoker Past Alcohol Use History: None Reported Past Drug Use History: None Reported <Fer Dale - Last Filed: 11/26/20 17:11> General Exam Limitations: no limitations General appearance: alert, in no apparent distress Head exam: Present: atraumatic, normocephalic, normal inspection Eye exam: Present: normal appearance, PERRL, EOMI. Absent: scleral icterus, conjunctival injection, periorbital swelling ENT exam: Present: normal exam, mucous membranes moist Neck exam: Present: normal inspection, full ROM. Absent: tenderness, meningismus, lymphadenopathy Respiratory exam: Present: normal lung sounds bilaterally. Absent: respiratory distress, wheezes, rales, rhonchi, stridor Cardiovascular Exam: Present: regular rate, normal rhythm, normal heart sounds. Absent: systolic murmur, diastolic murmur, rubs, gallop, clicks GI/Abdominal exam: Present: soft, normal bowel sounds. Absent: distended, tenderness, guarding, rebound, rigid Neurological exam: Present: alert <Fer Dale - Last Filed: 11/26/20 17:11> Course Vital Signs 11/26/20 11/26/20 14:14 17:47 Temperature 98.0 F Pulse Rate 93 73 Respiratory 18 16 Rate Blood Pressure 116/75 117/72 O2 Sat by Pulse 99 100 Oximetry EKG Findings - EKG Comments: EKG Findings:: Normal sinus rhythm, ventricular rate 83, AK interval 156, QTc 441 <Suyapa,Fer Mustafa - Last Filed: 11/26/20 17:11> Medical Decision Making <SuyapaFer thomas - Last Filed: 11/26/20 17:11> <Lindsay Veliz - Last Filed: 12/01/20 13:08> - Medical Decision Making Vitals are stable. Patient is 99% on room air. She is sitting up in bed well appearing. No respiratory distress. No wheezing on exam. Chest x-ray showed no pneumothorax, pleural effusion or focal pneumonia. There is hyperinflation present. Patient is a former smoker. EKG was obtained that showed a normal sinus rhythm. Ventricular rate 83. Patient does not qualify for antibodies. At this time patient should continue her medications from her primary care provider which include vitamins, z-nathanael. She will should follow-up with her doctor. She'll should return here for any worsening symptoms. (Fer Dale) I was available for consultation in the emergency department. The history and physical exam were done by the midlevel provider. I was consulted for this patients care. I reviewed the case with the midlevel provider and based on their presentation of the patient, I agree with the assessment, medical decision making and plan of care as documented. Chart was dictated using Stylistpick dictation software. Attempts were made to correct any dictation errors however some typographical errors may persist. Patient was seen during a national state of emergency due to the Covid-19 pandemic. (Lindsay Veliz) Disposition Is patient prescribed a controlled substance at d/c from ED?: No Time of Disposition: 17:12 <Fer Dale - Last Filed: 11/26/20 17:11> <Lindsay Veliz - Last Filed: 12/01/20 13:08> Clinical Impression: COVID-19 Disposition: HOME SELF-CARE Condition: Good Instructions (If sedation given, give patient instructions): Coronavirus Disease 2019 (COVID-19) Additional Instructions: Please continue your medications from your primary care doctor. Continue to quarantine. Follow-up with your doctor in one to 2 days. Return to the emergency room if you have any worsening symptoms. Referrals: Chevy Wilson DO [Primary Care Provider] - 1-2 days
[2020-11-26 17:47] VITALS: BP 117/72; PULSE 73; RESP 16
== END 2020-11-26 17:34 | disposition home or self-care (01) ==
LOC: EC 14:02
DX: U07.1 COVID-19 (principal); E78.5 Hyperlipidemia, unspecified; E03.9 Hypothyroidism, unspecified; Z87.891 Personal history of nicotine dependence
CPT/HCPCS: 71046; 93005; 99285

== ENCOUNTER 2021-07-13 12:47 | Emergency (ER) | payer BC, OTHER ==
[2021-07-13 13:00] VITALS: TEMP 98.1
[2021-07-13 14:38] LABS: Basophils # (A) 0.1 k/uL (0-0.2); Basophils % (A) 1 %; Eosinophils # (A) 0.1 k/uL (0-0.7); Eosinophils % (A) 1 %; HCT 40.9 % (34.0-46.0); HGB 14.2 gm/dL (11.4-16.0); Lymphocytes # (A) 1.8 k/uL (1.0-4.8); Lymphocytes % (A) 21 %; MCH 29.6 pg (25.0-35.0); MCHC 34.8 g/dL (31.0-37.0); Mean Platelet Volume 7.3; Monocytes # (A) 0.5 k/uL (0-1.0); Monocytes % (A) 6 %; Neutrophils # (A) 5.8 k/uL (1.3-7.7); Neutrophils % (A) 69 %; Platelet Count 436 k/uL (150-450); RBC 4.81 m/uL (3.80-5.40); RDW 12.5 % (11.5-15.5); WBC 8.4 k/uL (3.8-10.6)
[2021-07-13 14:49] LABS: Partial Thromboplastin Time 24.1 sec (22.0-30.0); Prothrombin Time 10.3 sec (9.0-12.0)
[2021-07-13 14:58] LABS: ALT 16 U/L (4-34); AST 29 U/L (14-36); African American GFR (CKD) >90 (>60 ml/min/1.73 sqM); Albumin 5.1 g/dL (3.5-5.0); Alkaline Phosphatase 99 U/L (38-126); Anion Gap 11 mmol/L; Blood Urea Nitrogen 9 mg/dL (7-17); Calcium 10.5 mg/dL (8.4-10.2); Carbon Dioxide 27 mmol/L (22-30); Chloride 102 mmol/L (98-107); Glucose 83 mg/dL (74-99); Magnesium 2.2 mg/dL (1.6-2.3); Non-African American GFR(CKD) >90 (>60 ml/min/1.73 sqM); Potassium 4.1 mmol/L (3.5-5.1); Sodium 140 mmol/L (137-145); Total Bilirubin 0.4 mg/dL (0.2-1.3); Total Protein 8.2 g/dL (6.3-8.2)
[2021-07-13] MEDS ORDERED: LORazepam 2 MG/ML INJ IV STA (15:39)
--- NOTE | 2021-07-13 15:43 | ED ---
General Adult HPI - General Chief complaint: Arrhythmia/Palpitations Stated complaint: Fast Heart Beat Time Seen by Provider: 07/13/21 14:38 Source: patient, RN notes reviewed Mode of arrival: wheelchair Limitations: no limitations - History of Present Illness Initial comments: Patient is a pleasant 61-year-old female presenting to the emergency department complaining of palpitations. Onset of symptoms was today. Patient feels like her heart beat is going a little bit on the fast side. Patient amiss to feeling anxious. Patient did have an episode 4 or 5 days ago when she stood up quickly out of bed and passed out when she got to the bathroom. Patient believes she may have struck her head. Patient has been a little bit lightheaded since that time. No chest pain or dyspnea. Patient would like to be tested for code but as she was exposed 5 days ago. - Related Data Home Medications Medication Instructions Recorded Confirmed SUMAtriptan succinate [Imitrex] 50 mg PO DAILY PRN 05/15/14 07/13/21 Levothyroxine Sodium [Synthroid] 75 mcg PO DAILY 12/13/16 07/13/21 Albuterol Sulfate [Proair Hfa] 2 puff INHALATION RT-Q6H PRN 07/13/21 07/13/21 Cholecalciferol [Vitamin D3 (25 25 mcg PO DAILY 07/13/21 07/13/21 Mcg = 1000 Iu)] HYDROcodone/APAP 5-325MG [[place] 0.25 tab PO QID PRN 07/13/21 07/13/21 5-325] Multivitamins, Thera [Multivitamin 1 tab PO DAILY 07/13/21 07/13/21 (formulary)] Allergies Allergy/AdvReac Type Severity Reaction Status Date / Time cefuroxime axetil Allergy Unknown Verified 07/13/21 15:39 [From Ceftin] sulfamethoxazole Allergy Unknown Verified 07/13/21 15:39 [From Bactrim] trimethoprim [From Bactrim] Allergy Unknown Verified 07/13/21 15:39 Review of Systems ROS Statement: Those systems with pertinent positive or pertinent negative responses have been documented in the HPI. ROS Other: All systems not noted in ROS Statement are negative. Constitutional: Denies: fever Eyes: Denies: eye pain ENT: Denies: ear pain Respiratory: Denies: cough Cardiovascular: Reports: palpitations Endocrine: Denies: fatigue Gastrointestinal: Denies: abdominal pain Genitourinary: Denies: dysuria Musculoskeletal: Denies: back pain Skin: Denies: rash Neurological: Denies: weakness Past Medical History Past Medical History: Hyperlipidemia, Thyroid Disorder Additional Past Medical History / Comment(s): hypothyroidism, migraines, glycoma History of Any Multi-Drug Resistant Organisms: MRSA Date of last positivie culture/infection: 2017 MDRO Source:: neck Past Surgical History: Section, Hysterectomy Past Psychological History: No Psychological Hx Reported Smoking Status: Former smoker Past Alcohol Use History: None Reported Past Drug Use History: None Reported General Exam Limitations: no limitations General appearance: alert, in no apparent distress Head exam: Present: atraumatic, normocephalic Eye exam: Present: normal appearance, PERRL, EOMI Neck exam: Present: normal inspection. Absent: tenderness Respiratory exam: Present: normal lung sounds bilaterally Cardiovascular Exam: Present: regular rate, normal rhythm Expanded Peripheral pulses: 2+: Radial (R), Radial (L), Dorsalis Pedis (R), Dorsalis Pedis (L) GI/Abdominal exam: Present: soft. Absent: tenderness Extremities exam: Present: normal inspection. Absent: pedal edema, calf tenderness Neurological exam: Present: alert, oriented X3, CN II-XII intact. Absent: motor sensory deficit Expanded Neurological exam: Present: protecting the airway Speech: Present: fluid speech Cranial nerves: EOM's Intact: Normal Sensory exam: Upper Extremity Light Touch: Normal, Lower Extremity Light Touch: Normal Motor strength exam: RUE: 5, LUE: 5, RLE: 5, LLE: 5 Eye Response: (4) open spontaneously Motor Response: (6) obeys commands Verbal Response: (5) oriented Psychiatric exam: Present: normal affect, normal mood Skin exam: Present: normal color Course Vital Signs 07/13/21 07/13/21 12:57 16:29 Temperature 98.1 F Pulse Rate 128 H 76 Respiratory 20 18 Rate Blood Pressure 140/79 125/77 O2 Sat by Pulse 100 100 Oximetry EKG Findings - EKG Comments: EKG Findings:: Sinus rhythm with a rate of 87. FL 148. QRS 82. QT 366. QTc 440. Normal axis. Normal QRS. No acute ST change. Medical Decision Making - Medical Decision Making Patient reevaluated and resting comfortably in bed without complaint. Patient updated on results and need for follow-up. Patient does request more medication for anxiety. - Lab Data Result diagrams: 07/13/21 14:21 07/13/21 14:21 Lab Results 07/13/21 07/13/21 07/13/21 Range/Units 14:21 14:21 14:21 WBC 8.4 (3.8-10.6) k/uL RBC 4.81 (3.80-5.40) m/uL Hgb 14.2 (11.4-16.0) gm/dL Hct 40.9 (34.0-46.0) % MCV 85.0 (80.0-100.0) fL MCH 29.6 (25.0-35.0) pg MCHC 34.8 (31.0-37.0) g/dL RDW 12.5 (11.5-15.5) % Plt Count 436 (150-450) k/uL MPV 7.3 Neutrophils % 69 % Lymphocytes % 21 % Monocytes % 6 % Eosinophils % 1 % Basophils % 1 % Neutrophils # 5.8 (1.3-7.7) k/uL Lymphocytes # 1.8 (1.0-4.8) k/uL Monocytes # 0.5 (0-1.0) k/uL Eosinophils # 0.1 (0-0.7) k/uL Basophils # 0.1 (0-0.2) k/uL PT 10.3 (9.0-12.0) sec INR 1.0 (<1.2) APTT 24.1 (22.0-30.0) sec D-Dimer (<0.60) mg/L FEU Sodium 140 (137-145) mmol/L Potassium 4.1 (3.5-5.1) mmol/L Chloride 102 (98-107) mmol/L Carbon Dioxide 27 (22-30) mmol/L Anion Gap 11 mmol/L BUN 9 (7-17) mg/dL Creatinine 0.65 (0.52-1.04) mg/dL Est GFR (CKD-EPI)AfAm >90 (>60 ml/min/1.73 sqM) Est GFR (CKD-EPI)NonAf >90 (>60 ml/min/1.73 sqM) Glucose 83 (74-99) mg/dL Calcium 10.5 H (8.4-10.2) mg/dL Magnesium 2.2 (1.6-2.3) mg/dL Total Bilirubin 0.4 (0.2-1.3) mg/dL AST 29 (14-36) U/L ALT 16 (4-34) U/L Alkaline Phosphatase 99 (38-126) U/L Troponin I (0.000-0.034) ng/mL Total Protein 8.2 (6.3-8.2) g/dL Albumin 5.1 H (3.5-5.0) g/dL TSH (0.465-4.680) mIU/L Free T4 (0.78-2.19) ng/dL Free T3 pg/mL (2.8-5.3) pg/ml Coronavirus (PCR) (Not Detectd) 07/13/21 07/13/21 07/13/21 Range/Units 14:21 14:21 14:21 WBC (3.8-10.6) k/uL RBC (3.80-5.40) m/uL Hgb (11.4-16.0) gm/dL Hct (34.0-46.0) % MCV (80.0-100.0) fL MCH (25.0-35.0) pg MCHC (31.0-37.0) g/dL RDW (11.5-15.5) % Plt Count (150-450) k/uL MPV Neutrophils % % Lymphocytes % % Monocytes % % Eosinophils % % Basophils % % Neutrophils # (1.3-7.7) k/uL Lymphocytes # (1.0-4.8) k/uL Monocytes # (0-1.0) k/uL Eosinophils # (0-0.7) k/uL Basophils # (0-0.2) k/uL PT (9.0-12.0) sec INR (<1.2) APTT (22.0-30.0) sec D-Dimer 0.30 (<0.60) mg/L FEU Sodium (137-145) mmol/L Potassium (3.5-5.1) mmol/L Chloride (98-107) mmol/L Carbon Dioxide (22-30) mmol/L Anion Gap mmol/L BUN (7-17) mg/dL Creatinine (0.52-1.04) mg/dL Est GFR (CKD-EPI)AfAm (>60 ml/min/1.73 sqM) Est GFR (CKD-EPI)NonAf (>60 ml/min/1.73 sqM) Glucose (74-99) mg/dL Calcium (8.4-10.2) mg/dL Magnesium (1.6-2.3) mg/dL Total Bilirubin (0.2-1.3) mg/dL AST (14-36) U/L ALT (4-34) U/L Alkaline Phosphatase (38-126) U/L Troponin I <0.012 (0.000-0.034) ng/mL Total Protein (6.3-8.2) g/dL Albumin (3.5-5.0) g/dL TSH 0.104 L (0.465-4.680) mIU/L Free T4 1.08 (0.78-2.19) ng/dL Free T3 pg/mL 3.6 (2.8-5.3) pg/ml Coronavirus (PCR) (Not Detectd) 07/13/21 Range/Units 16:30 WBC (3.8-10.6) k/uL RBC (3.80-5.40) m/uL Hgb (11.4-16.0) gm/dL Hct (34.0-46.0) % MCV (80.0-100.0) fL MCH (25.0-35.0) pg MCHC (31.0-37.0) g/dL RDW (11.5-15.5) % Plt Count (150-450) k/uL MPV Neutrophils % % Lymphocytes % % Monocytes % % Eosinophils % % Basophils % % Neutrophils # (1.3-7.7) k/uL Lymphocytes # (1.0-4.8) k/uL Monocytes # (0-1.0) k/uL Eosinophils # (0-0.7) k/uL Basophils # (0-0.2) k/uL PT (9.0-12.0) sec INR (<1.2) APTT (22.0-30.0) sec D-Dimer (<0.60) mg/L FEU Sodium (137-145) mmol/L Potassium (3.5-5.1) mmol/L Chloride (98-107) mmol/L Carbon Dioxide (22-30) mmol/L Anion Gap mmol/L BUN (7-17) mg/dL Creatinine (0.52-1.04) mg/dL Est GFR (CKD-EPI)AfAm (>60 ml/min/1.73 sqM) Est GFR (CKD-EPI)NonAf (>60 ml/min/1.73 sqM) Glucose (74-99) mg/dL Calcium (8.4-10.2) mg/dL Magnesium (1.6-2.3) mg/dL Total Bilirubin (0.2-1.3) mg/dL AST (14-36) U/L ALT (4-34) U/L Alkaline Phosphatase (38-126) U/L Troponin I (0.000-0.034) ng/mL Total Protein (6.3-8.2) g/dL Albumin (3.5-5.0) g/dL TSH (0.465-4.680) mIU/L Free T4 (0.78-2.19) ng/dL Free T3 pg/mL (2.8-5.3) pg/ml Coronavirus (PCR) Not Detected (Not Detectd) - Radiology Data Radiology results: report reviewed (Computed tomography scan of the brain shows no acute process.), image reviewed (Chest x-ray shows no acute cardiopulmonary disease.) Disposition Clinical Impression: Palpitations Disposition: HOME SELF-CARE Condition: Stable Instructions (If sedation given, give patient instructions): Heart Palpitations (ED) Additional Instructions: Please do follow-up to primary care physician in the next day or 2 for recheck. Please also follow-up with ENT, number provided. Return for uncontrolled heart rate, chest pain or shortness of breath, worsening or change in symptoms or any other concerns including passing out. Is patient prescribed a controlled substance at d/c from ED?: No Referrals: Chevy Wilson DO [Primary Care Provider] - 1-2 days Robert Bermudez MD [STAFF PHYSICIAN] - 1-2 days Time of Disposition: 17:54
[2021-07-13] MEDS ORDERED: LORazepam 1 MG TAB PO STA ×2 (16:01→17:54)
[2021-07-13 16:30] VITALS: RESP 18
[2021-07-13 16:30] LABS: T4, Free (Free Thyroxine) 1.08 ng/dL (0.78-2.19)
--- NOTE | 2021-07-13 16:38 | CT ---
EXAMINATION TYPE: CT brain wo con DATE OF EXAM: 07/13/2021 COMPARISON: 06/22/2020 INDICATION: Syncopal episode 5 days ago. Left and posterior head injury. Bilateral ear fullness. DLP: 1064.4 mGycm, Automated exposure control for dose reduction was used. CONTRAST: None CT of the brain is performed utilizing 3 mm thick sections through the posterior fossa and 3 mm thick sections through the remaining calvarium. Study is performed within 24 hours of arrival to the hosp ital. No abnormal hyperdensity is present to suggest an acute intracranial hemorrhage. No mass lesion is evident. No acute infarcts are evident. Ventricles and sulci are appropriate for the patient age. Paranasal sinuses and mastoid air cells within the [id number] are clear. IMPRESSIONS: 1. Normal CT Brain
--- NOTE | 2021-07-13 16:48 | XR ---
EXAMINATION TYPE: XR chest 2V DATE OF EXAM: 07/13/2021 COMPARISON: 11/26/2020 INDICATION: Dysrhythmia heart palpitations TECHNIQUE: Frontal and lateral views of the chest are obtained. FINDINGS: The heart size is normal. The pulmonary vasculature is normal. The lungs are clear. Hyperinflation is present IMPRESSION: 1. No acute pulmonary process.
[2021-07-13 18:16] VITALS: BP 126/86; PULSE 84
== END 2021-07-13 18:16 | disposition home or self-care (01) ==
LOC: EC 12:47
DX: R00.2 Palpitations (principal); Z20.822 Contact with and (suspected) exposure to COVID-19; E78.5 Hyperlipidemia, unspecified; E03.9 Hypothyroidism, unspecified; Z79.890 Hormone replacement therapy; Z79.899 Other long term (current) drug therapy; Z87.891 Personal history of nicotine dependence; Z88.1 Allergy status to other antibiotic agents; Z88.2 Allergy status to sulfonamides
CPT/HCPCS: 36415; 70450; 71046; 80053; 83735; 84439; 84443; 84481; 84484; 85025; 85379; 85610; 85730; 87635; 93005; 99285

== ENCOUNTER 2022-04-10 19:46 | Emergency (ER) | payer BC, OTHER ==
[2022-04-10 20:17] VITALS: TEMP 98
[2022-04-10 21:25] VITALS: RESP 16
--- NOTE | 2022-04-10 23:13 | ED ---
General Adult HPI - General Chief complaint: ENT Stated complaint: Head pressure Time Seen by Provider: 04/10/22 22:24 Source: patient Mode of arrival: ambulatory Limitations: no limitations - History of Present Illness Initial comments: Patient is a 62-year-old female presents the emergency room with complaints of left ear fullness and tenderness; she reports she feels her left ear is clogged. She complains of generalized fatigue and left-sided head pressure ongoing for approximately 3 weeks. She is very anxious regarding concerns of previous head trauma and concerns regarding her heart however she has no cardiovascular symptoms. She has had multiple CTs in the past post head trauma that have been normal. She has previously been following with ENT but reports no recent follow-up with ENT. She denies any fevers, chills, shortness of breath, cough, chest pain, dizziness, orthopnea, larceny swelling, abdominal pain, nausea, vomiting, lethargy or focal neurological deficits. She has past medical history significant for closed head injury, recurrent ear infections, hypothyroidism, migraines and hyperlipidemia. She denies previously being diagnosed with anxiety but reports being anxious often. - Related Data Home Medications Medication Instructions Recorded Confirmed SUMAtriptan succinate [Imitrex] 50 mg PO DAILY PRN 05/15/14 07/13/21 Levothyroxine Sodium [Synthroid] 75 mcg PO DAILY 12/13/16 07/13/21 Albuterol Sulfate [Proair Hfa] 2 puff INHALATION RT-Q6H PRN 07/13/21 07/13/21 Cholecalciferol [Vitamin D3 (25 25 mcg PO DAILY 07/13/21 07/13/21 Mcg = 1000 Iu)] HYDROcodone/APAP 5-325MG [[place] 0.25 tab PO QID PRN 07/13/21 07/13/21 5-325] Multivitamins, Thera [Multivitamin 1 tab PO DAILY 07/13/21 07/13/21 (formulary)] Previous Rx's Medication Instructions Recorded Amoxicillin 875 mg PO Q12HR 10 Days #20 tablet 04/10/22 Allergies Allergy/AdvReac Type Severity Reaction Status Date / Time cefuroxime axetil Allergy Unknown Verified 07/13/21 15:39 [From Ceftin] sulfamethoxazole Allergy Unknown Verified 07/13/21 15:39 [From Bactrim] trimethoprim [From Bactrim] Allergy Unknown Verified 07/13/21 15:39 Review of Systems ROS Statement: Those systems with pertinent positive or pertinent negative responses have been documented in the HPI. ROS Other: All systems not noted in ROS Statement are negative. Past Medical History Past Medical History: Hyperlipidemia, Thyroid Disorder Additional Past Medical History / Comment(s): hypothyroidism, migraines, glaucoma, recurrent ear infection History of Any Multi-Drug Resistant Organisms: MRSA Date of last positivie culture/infection: 2017 MDRO Source:: neck Past Surgical History: Section, Hysterectomy Smoking Status: Former smoker Past Alcohol Use History: None Reported Past Drug Use History: None Reported General Exam Limitations: no limitations General appearance: alert, in no apparent distress Head exam: Present: atraumatic, normocephalic, normal inspection Eye exam: Present: normal appearance, PERRL, EOMI. Absent: scleral icterus, conjunctival injection ENT exam: Present: normal exam, mucous membranes moist Expanded Ear exam: Present: normal external inspection TM/Canal exam: Erythema: Left TM, Bulging: Left TM Mouth exam: Present: normal external inspection Teeth exam: Present: normal inspection Throat exam: normal inspection Neck exam: Present: normal inspection. Absent: tenderness, meningismus, lym phadenopathy Respiratory exam: Present: normal lung sounds bilaterally. Absent: respiratory distress, wheezes, rales, rhonchi, stridor Cardiovascular Exam: Present: regular rate, normal rhythm, normal heart sounds. Absent: systolic murmur, diastolic murmur, rubs, gallop, clicks GI/Abdominal exam: Present: soft, normal bowel sounds. Absent: distended, tenderness, guarding, rebound, rigid Extremities exam: Present: normal inspection, full ROM, normal capillary refill. Absent: tenderness, pedal edema, joint swelling, calf tenderness Back exam: Present: normal inspection Neurological exam: Present: alert, oriented X3, CN II-XII intact Psychiatric exam: Present: anxious Skin exam: Present: warm, dry, intact, normal color. Absent: rash Course Vital Signs 04/10/22 04/10/22 04/11/22 20:13 21:24 00:24 Temperature 98.0 F Pulse Rate 101 H 83 88 Respiratory 18 16 16 Rate Blood Pressure 144/80 133/75 121/79 O2 Sat by Pulse 97 99 98 Oximetry Medical Decision Making - Medical Decision Making Previous emergency room records revealed multiple ER visits for similar compla ints. Computed tomography scan previously negative. No new symptoms or trauma indicating need for repeat computed tomography scan. Will check EKG given dizziness along with CMP and CBC however exam consistent with otitis media. EKG shows normal sinus rhythm. CMP and CBC without significant anomalies. Patient reports being very anxious ONE-time dose of oral Ativan. Findings discussed with patient. Will discharge home on antibiotics and advised for her to follow-up with ENT in her primary care provider regarding recurrent otitis media and her anxiety. Case discussed with Dr. Leroy - Lab Data Result diagrams: 04/10/22 23:21 04/10/22 23:21 Lab Results 04/10/22 04/10/22 04/10/22 Range/Units 20:18 23:21 23:21 WBC 7.7 (3.8-10.6) k/uL RBC 4.58 (3.80-5.40) m/uL Hgb 13.6 (11.4-16.0) gm/dL Hct 40.4 (34.0-46.0) % MCV 88.1 (80.0-100.0) fL MCH 29.8 (25.0-35.0) pg MCHC 33.8 (31.0-37.0) g/dL RDW 12.7 (11.5-15.5) % Plt Count 399 (150-450) k/uL MPV 6.7 Neutrophils % 48 % Lymphocytes % 38 % Monocytes % 8 % Eosinophils % 2 % Basophils % 2 % Neutrophils # 3.7 (1.3-7.7) k/uL Lymphocytes # 2.9 (1.0-4.8) k/uL Monocytes # 0.6 (0-1.0) k/uL Eosinophils # 0.2 (0-0.7) k/uL Basophils # 0.1 (0-0.2) k/uL Sodium 136 L (137-145) mmol/L Potassium 3.7 (3.5-5.1) mmol/L Chloride 103 (98-107) mmol/L Carbon Dioxide 26 (22-30) mmol/L Anion Gap 7 mmol/L BUN 10 (7-17) mg/dL Creatinine 0.69 (0.52-1.04) mg/dL Est GFR (CKD-EPI)AfAm >90 (>60 ml/min/1.73 sqM) Est GFR (CKD-EPI)NonAf >90 (>60 ml/min/1.73 sqM) Glucose 91 (74-99) mg/dL Calcium 9.7 (8.4-10.2) mg/dL Coronavirus (PCR) Not Detected (Not Detectd) - EKG Data EKG Comments: Sinus rhythm, possible right ventricular conduction delay, ventricular rate 69 bpm, CO interval 180 ms QRS duration 80 ms, QT/QTC. And 75/395 ms PRT axes 66, 7, 48 Disposition Clinical Impression: Otitis media, Anxiety Disposition: HOME SELF-CARE Condition: Stable Instructions (If sedation given, give patient instructions): Ear Infection (ED), Earache (ED), Anxiety (ED) Additional Instructions: Please complete your antibiotics as prescribed for ear infection of the left ear. Please follow-up with your primary care provider in regards to anxiety. She has received a dose of oral Ativan here in the emergency department please avoid driving or making decisions and so the medication has worn off in approximately 8-24 hours. Please return to the Emergency Department if symptoms worsen or any other concerns. Prescriptions: Amoxicillin 875 mg PO Q12HR 10 Days #20 tablet Is patient prescribed a controlled substance at d/c from ED?: No Referrals: Chevy Wilson DO [Primary Care Provider] - 1-2 days Time of Disposition: 23:58
[2022-04-10 23:34] LABS: Basophils # (A) 0.1 k/uL (0-0.2); Basophils % (A) 2 %; Eosinophils # (A) 0.2 k/uL (0-0.7); Eosinophils % (A) 2 %; HCT 40.4 % (34.0-46.0); HGB 13.6 gm/dL (11.4-16.0); Lymphocytes # (A) 2.9 k/uL (1.0-4.8); Lymphocytes % (A) 38 %; MCH 29.8 pg (25.0-35.0); MCHC 33.8 g/dL (31.0-37.0); MCV 88.1 fL (80.0-100.0); Mean Platelet Volume 6.7; Monocytes # (A) 0.6 k/uL (0-1.0); Monocytes % (A) 8 %; Neutrophils # (A) 3.7 k/uL (1.3-7.7); Neutrophils % (A) 48 %; Platelet Count 399 k/uL (150-450); RBC 4.58 m/uL (3.80-5.40); RDW 12.7 % (11.5-15.5); WBC 7.7 k/uL (3.8-10.6)
[2022-04-10 23:48] LABS: African American GFR (CKD) >90 (>60 ml/min/1.73 sqM); Anion Gap 7 mmol/L; Blood Urea Nitrogen 10 mg/dL (7-17); Calcium 9.7 mg/dL (8.4-10.2); Carbon Dioxide 26 mmol/L (22-30); Chloride 103 mmol/L (98-107); Glucose 91 mg/dL (74-99); Non-African American GFR(CKD) >90 (>60 ml/min/1.73 sqM); Potassium 3.7 mmol/L (3.5-5.1); Sodium 136 mmol/L (137-145)
[2022-04-10] MEDS ORDERED: LORazepam 0.5 MG TAB PO STA (23:52)
[2022-04-11] MEDS ORDERED: AMOXIC-POT CLAV 875-125MG 1 EACH TAB PO STA (00:18)
[2022-04-11 00:26] VITALS: BP 121/79; PULSE 88
== END 2022-04-11 00:24 | disposition home or self-care (01) ==
LOC: EC 19:46
DX: H66.92 Otitis media, unspecified, left ear (principal); F41.9 Anxiety disorder, unspecified; R51.9 Headache, unspecified; R53.83 Other fatigue; E78.5 Hyperlipidemia, unspecified; E07.9 Disorder of thyroid, unspecified; Z87.891 Personal history of nicotine dependence; Z88.1 Allergy status to other antibiotic agents; Z88.2 Allergy status to sulfonamides; Z79.890 Hormone replacement therapy; Z79.899 Other long term (current) drug therapy; Z20.822 Contact with and (suspected) exposure to COVID-19
CPT/HCPCS: 36415; 80048; 85025; 87635; 93005; 99284

== ENCOUNTER → 2022-06-14 | Outpatient (CLI) | payer BC, OTHER ==
--- NOTE | 2022-06-15 10:16 | CA ---
Transthoracic Echo Report Name: Corinne Hobson Age: 62 Gender: F : 1960 Exam Date: 06/14/2022 11:11 Exam Location: [facility] Ht (in): 63 Wt (lb): 109 Ordering Physician: Chevy Wilson DO Attending/Referring Phys: Labor Economics Teacher Carleen Bear RDCS Procedure CPT: Indications: I34.0 NONRHEUMATIC MITRAL (VALVE) INSUFFICIENCY Cardiac Hx: Technical Quality: Fair Contrast 1: Total Dose (mL): Contrast 2: Total Dose (mL): MEASUREMENTS (Male / Female) Normal Values 2D ECHO LV Diastolic Diameter PLAX 4.0 cm 4.2 - 5.9 / 3.9 - 5.3 cm LV Systolic Diameter PLAX 2.5 cm IVS Diastolic Thickness 0.7 cm 0.6 - 1.0 / 0.6 - 0.9 cm LVPW Diastolic Thickness 0.8 cm 0.6 - 1.0 / 0.6 - 0.9 cm LV Relative Wall Thickness 0.4 RV Internal Dim ED PLAX 2.2 cm LA Volume 24.7 cm??? 18 - 58 / 22 - 52 cm??? M-MODE Aortic Root Diameter MM 2.8 cm LA Systolic Diameter MM 3.1 cm LA Ao Ratio MM 1.1 AV Cusp Separation MM 1.9 cm DOPPLER AV Peak Velocity 102.4 cm/s AV Peak Gradient 4.2 mmHg LVOT Peak Velocity 88.8 cm/s LVOT Peak Gradient 3.2 mmHg MV Area PHT 2.6 cm??? Mitral E Point Velocity 65.4 cm/s Mitral A Point Velocity 80.5 cm/s Mitral E to A Ratio 0.8 MV Deceleration Time 293.5 ms MV E' Velocity 7.9 cm/s Mitral E to MV E' Ratio 8.3 TR Peak Velocity 239.6 cm/s TR Peak Gradient 23.0 mmHg Right Ventricular Systolic Press 27.5 mmHg FINDINGS Left Ventricle Normal Left ventricular size, wall thickness, systolic function with no obvious regional wall motion abnormalities. Normal Left ventricular diastolic filling pattern. Left ventricular ejection fraction is estimated at 55-60 %. Right Ventricle Normal right ventricular size and function. Right ventricular systolic pressure within normal limits. Right Atrium Normal right atrial size. Mobile interatrial septum. Left Atrium Normal left atrial size. Mitral Valve Structurally normal mitral valve. Mild thickening of the mitral valve leaflets and mild regurgitation Aortic Valve No aortic valve stenosis or regurgitation.trileaflet aortic valve. Tricuspid Valve Structurally normal tricuspid valve. Mild tricuspid regurgitation. Pulmonic Valve Pulmonic valve not well visualized. Pericardium No pericardial effusion. Aorta Normal size aortic root and proximal ascending aorta. CONCLUSIONS 1. Normal left ventricle size and systolic function 2. Mild mitral and tricuspid regurgitation Previewed by: Dr. Ian Hess MD (Electronically Signed) Final Date: 15 June 2022 10:16
== END | disposition home or self-care (01) ==
LOC: RADECHMAIN 11:05
PROVIDERS: ATTEND Family Medicine
DX: I34.0 Nonrheumatic mitral (valve) insufficiency (principal)
CPT/HCPCS: 93306

== ENCOUNTER 2022-07-08 15:54 | Emergency (ER) | payer BC, OTHER ==
[2022-07-08 15:58] VITALS: RESP 18
--- NOTE | 2022-07-08 16:22 | ED ---
General Adult HPI - General Chief complaint: Syncope Stated complaint: Fall/head Time Seen by Provider: 07/08/22 15:59 Source: patient, RN notes reviewed Mode of arrival: ambulatory Limitations: no limitations - History of Present Illness Initial comments: Patient is a pleasant 62-year-old female presenting to the emergency department with concerns with headache and injury. Patient was working on the lawn yesterday when she was in the head with the right. Patient has had some discomfort since that time. This morning patient use the restroom around 5 AM. After getting up she did have a syncopal episode. Patient did strike her head a second time. Patient has moderate discomfort. No neck or back pain. Patient feels slightly lightheaded. Patient has had problems with left ear for years, unchanged. No dyspnea. No abdominal pain. No back pain. - Related Data Home Medications Medication Instructions Recorded Confirmed SUMAtriptan succinate [Imitrex] 50 mg PO DAILY PRN 05/15/14 07/13/21 Levothyroxine Sodium [Synthroid] 75 mcg PO DAILY 12/13/16 07/13/21 Albuterol Sulfate [Proair Hfa] 2 puff INHALATION RT-Q6H PRN 07/13/21 07/13/21 Cholecalciferol [Vitamin D3 (25 25 mcg PO DAILY 07/13/21 07/13/21 Mcg = 1000 Iu)] HYDROcodone/APAP 5-325MG [[place] 0.25 tab PO QID PRN 07/13/21 07/13/21 5-325] Multivitamins, Thera [Multivitamin 1 tab PO DAILY 07/13/21 07/13/21 (formulary)] Previous Rx's Medication Instructions Recorded Amoxicillin 875 mg PO Q12HR 10 Days #20 tablet 04/10/22 predniSONE [Deltasone] 20 mg PO BID #10 tab 07/08/22 Allergies Allergy/AdvReac Type Severity Reaction Status Date / Time cefuroxime axetil Allergy Unknown Verified 07/08/22 15:58 [From Ceftin] sulfamethoxazole Allergy Unknown Verified 07/08/22 15:58 [From Bactrim] trimethoprim [From Bactrim] Allergy Unknown Verified 07/08/22 15:58 Review of Systems ROS Statement: Those systems with pertinent positive or pertinent negative responses have been documented in the HPI. ROS Other: All systems not noted in ROS Statement are negative. Constitutional: Denies: fever Eyes: Denies: eye pain ENT: Denies: ear pain Respiratory: Denies: cough, dyspnea Cardiovascular: Denies: chest pain, palpitations Endocrine: Denies: fatigue Gastrointestinal: Denies: abdominal pain Genitourinary: Denies: dysuria Musculoskeletal: Denies: back pain Skin: Denies: rash Neurological: Reports: as per HPI, headache. Denies: weakness Past Medical History Past Medical History: Hyperlipidemia, Thyroid Disorder Additional Past Medical History / Comment(s): hypothyroidism, migraines, glaucoma, recurrent ear infection History of Any Multi-Drug Resistant Organisms: MRSA Date of last positivie culture/infection: 2017 MDRO Source:: neck Past Surgical History: Section, Hysterectomy Past Psychological History: No Psychological Hx Reported Smoking Status: Former smoker Past Alcohol Use History: None Reported Past Drug Use History: None Reported General Exam Limitations: no limitations General appearance: alert, in no apparent distress Head exam: Present: other (Minimal soft tissue swelling left frontal) Eye exam: Present: normal appearance, PERRL, EOMI ENT exam: Present: normal oropharynx Neck exam: Present: normal inspection. Absent: tenderness Respiratory exam: Present: normal lung sounds bilaterally Cardiovascular Exam: Present: regular rate, normal rhythm GI/Abdominal exam: Present: soft. Absent: tenderness Extremities exam: Present: normal inspection, full ROM. Absent: tenderness Neurological exam: Present: alert, CN II-XII intact. Absent: motor sensory deficit Expanded Neurological exam: Present: protecting the airway Speech: Present: fluid speech Cranial nerves: EOM's Intact: Normal Motor strength exam: RUE: 5, LUE: 5, RLE: 5, LLE: 5 Eye Response: (4) open spontaneously Motor Response: (6) obeys commands Verbal Response: (5) oriented Psychiatric exam: Present: normal affect, normal mood Skin exam: Present: normal color Course Vital Signs 07/08/22 15:56 Temperature 98.3 F Pulse Rate 99 Respiratory 18 Rate Blood Pressure 134/83 O2 Sat by Pulse 100 Oximetry EKG Findings - EKG Comments: EKG Findings:: Sinus rhythm rate 85. MN 176. QRS 82. QT 371. QTC 414. Normal axis. Normal QRS. No acute ST change. Medical Decision Making - Medical Decision Making Patient reevaluated and updated. Patient would like to have steroids for her ear. Patient states that when she had been previously they were helping and she is unable to get in to see the ENT for another 2 weeks. Discussion had with patient who would not want antiviral medication. - Lab Data Result diagrams: 07/08/22 16:35 07/08/22 16:35 Lab Results 07/08/22 07/08/22 07/08/22 Range/Units 16:35 16:35 16:35 WBC 8.3 (3.8-10.6) k/uL RBC 4.63 (3.80-5.40) m/uL Hgb 13.3 (11.4-16.0) gm/dL Hct 39.2 (34.0-46.0) % MCV 84.7 (80.0-100.0) fL MCH 28.8 (25.0-35.0) pg MCHC 34.0 (31.0-37.0) g/dL RDW 12.3 (11.5-15.5) % Plt Count 453 H (150-450) k/uL MPV 7.8 Neutrophils % 76 % Lymphocytes % 16 % Monocytes % 4 % Eosinophils % 2 % Basophils % 0 % Neutrophils # 6.3 (1.3-7.7) k/uL Lymphocytes # 1.3 (1.0-4.8) k/uL Monocytes # 0.3 (0-1.0) k/uL Eosinophils # 0.1 (0-0.7) k/uL Basophils # 0.0 (0-0.2) k/uL PT 10.2 (9.0-12.0) sec INR 0.9 (<1.2) APTT 23.9 (22.0-30.0) sec D-Dimer 0.26 (<0.60) mg/L FEU Sodium 136 L (137-145) mmol/L Potassium 4.0 (3.5-5.1) mmol/L Chloride 99 (98-107) mmol/L Carbon Dioxide 24 (22-30) mmol/L Anion Gap 13 mmol/L BUN 10 (7-17) mg/dL Creatinine 0.65 (0.52-1.04) mg/dL Est GFR (CKD-EPI)AfAm >90 (>60 ml/min/1.73 sqM) Est GFR (CKD-EPI)NonAf >90 (>60 ml/min/1.73 sqM) Glucose 116 H (74-99) mg/dL Calcium 10.0 (8.4-10.2) mg/dL Magnesium 2.2 (1.6-2.3) mg/dL Total Bilirubin 0.4 (0.2-1.3) mg/dL AST 26 (14-36) U/L ALT 17 (4-34) U/L Alkaline Phosphatase 113 (38-126) U/L Troponin I (0.000-0.034) ng/mL Total Protein 7.5 (6.3-8.2) g/dL Albumin 4.8 (3.5-5.0) g/dL Coronavirus (PCR) (Not Detectd) 07/08/22 07/08/22 Range/Units 16:35 17:21 WBC (3.8-10.6) k/uL RBC (3.80-5.40) m/uL Hgb (11.4-16.0) gm/dL Hct (34.0-46.0) % MCV (80.0-100.0) fL MCH (25.0-35.0) pg MCHC (31.0-37.0) g/dL RDW (11.5-15.5) % Plt Count (150-450) k/uL MPV Neutrophils % % Lymphocytes % % Monocytes % % Eosinophils % % Basophils % % Neutrophils # (1.3-7.7) k/uL Lymphocytes # (1.0-4.8) k/uL Monocytes # (0-1.0) k/uL Eosinophils # (0-0.7) k/uL Basophils # (0-0.2) k/uL PT (9.0-12.0) sec INR (<1.2) APTT (22.0-30.0) sec D-Dimer (<0.60) mg/L FEU Sodium (137-145) mmol/L Potassium (3.5-5.1) mmol/L Chloride (98-107) mmol/L Carbon Dioxide (22-30) mmol/L Anion Gap mmol/L BUN (7-17) mg/dL Creatinine (0.52-1.04) mg/dL Est GFR (CKD-EPI)AfAm (>60 ml/min/1.73 sqM) Est GFR (CKD-EPI)NonAf (>60 ml/min/1.73 sqM) Glucose (74-99) mg/dL Calcium (8.4-10.2) mg/dL Magnesium (1.6-2.3) mg/dL Total Bilirubin (0.2-1.3) mg/dL AST (14-36) U/L ALT (4-34) U/L Alkaline Phosphatase (38-126) U/L Troponin I <0.012 (0.000-0.034) ng/mL Total Protein (6.3-8.2) g/dL Albumin (3.5-5.0) g/dL Coronavirus (PCR) Detected A (Not Detectd) - Radiology Data Radiology results: report reviewed (CT brain reveals no acute abnormality), image reviewed (Chest x-ray shows no acute process) Disposition Clinical Impression: Head injury, COVID-19 Disposition: HOME SELF-CARE Condition: Stable Instructions (If sedation given, give patient instructions): Head Injury (ED), COVID-19 (Coronavirus Disease 2019) (ED) Additional Instructions: Please do follow-up with your primary care physician beginning of the week. Please also follow-up with ENT as soon as possible. Prescription for steroid sent to pharmacy. Prescriptions: predniSONE [Deltasone] 20 mg PO BID #10 tab Is patient prescribed a controlled substance at d/c from ED?: No Referrals: Chevy Wilson DO [Primary Care Provider] - 1-2 days Time of Disposition: 19:01
[2022-07-08 16:52] LABS: Basophils % (A) 0 %; Eosinophils # (A) 0.1 k/uL (0-0.7); Eosinophils % (A) 2 %; HCT 39.2 % (34.0-46.0); HGB 13.3 gm/dL (11.4-16.0); Lymphocytes # (A) 1.3 k/uL (1.0-4.8); Lymphocytes % (A) 16 %; MCH 28.8 pg (25.0-35.0); MCV 84.7 fL (80.0-100.0); Mean Platelet Volume 7.8; Monocytes # (A) 0.3 k/uL (0-1.0); Monocytes % (A) 4 %; Neutrophils # (A) 6.3 k/uL (1.3-7.7); Neutrophils % (A) 76 %; Platelet Count 453 k/uL (150-450); RBC 4.63 m/uL (3.80-5.40); RDW 12.3 % (11.5-15.5); WBC 8.3 k/uL (3.8-10.6)
[2022-07-08 17:04] LABS: INR 0.9 (<1.2); Partial Thromboplastin Time 23.9 sec (22.0-30.0); Prothrombin Time 10.2 sec (9.0-12.0)
--- NOTE | 2022-07-08 17:05 | CT ---
EXAMINATION TYPE: CT brain wo con DATE OF EXAM: 07/08/2022 COMPARISON: 07/13/2021 HISTORY: syncope CT DLP: 1129.4 mGycm Automated exposure control for dose reduction was used. Ventricles of normal size. There is no mass effect nor midline shift. No sign of intracranial hemorrh age. Calvarium is intact. There is normal aeration of the mastoid sinuses. IMPRESSION: Negative unenhanced head CT scan no adverse change.
[2022-07-08 17:09] LABS: ALT 17 U/L (4-34); AST 26 U/L (14-36); African American GFR (CKD) >90 (>60 ml/min/1.73 sqM); Albumin 4.8 g/dL (3.5-5.0); Alkaline Phosphatase 113 U/L (38-126); Anion Gap 13 mmol/L; Blood Urea Nitrogen 10 mg/dL (7-17); Carbon Dioxide 24 mmol/L (22-30); Chloride 99 mmol/L (98-107); Glucose 116 mg/dL (74-99); Magnesium 2.2 mg/dL (1.6-2.3); Non-African American GFR(CKD) >90 (>60 ml/min/1.73 sqM); Sodium 136 mmol/L (137-145); Total Bilirubin 0.4 mg/dL (0.2-1.3); Total Protein 7.5 g/dL (6.3-8.2)
--- NOTE | 2022-07-08 17:20 | XR ---
EXAMINATION TYPE: XR chest 2V DATE OF EXAM: 07/08/2022 COMPARISON: 07/13/2021 HISTORY: Syncope TECHNIQUE: 2 views FINDINGS: Heart is normal. Lungs are clear. Diaphragm is normal. Bony thorax is intact. IMPRESSION: No active cardiopulmonary disease. No change.
[2022-07-08] MEDS ORDERED: ACETAMINOPHEN TAB 500 MG TAB PO STA (19:02)
[2022-07-08] MEDS ORDERED: predniSONE 10 MG TAB PO STA (19:02)
[2022-07-08 19:17] VITALS: BP 114/80; PULSE 102; TEMP 98.7
== END 2022-07-08 19:17 | disposition home or self-care (01) ==
LOC: EC 15:54
DX: U07.1 COVID-19 (principal); S09.90XA Unspecified injury of head, initial encounter; E78.5 Hyperlipidemia, unspecified; E03.9 Hypothyroidism, unspecified; Z87.891 Personal history of nicotine dependence; Z88.1 Allergy status to other antibiotic agents; Z88.2 Allergy status to sulfonamides; Z79.890 Hormone replacement therapy; Z79.899 Other long term (current) drug therapy; W01.198A Fall on same level from slipping, tripping and stumbling with subsequent striking against other object, initial encounter
CPT/HCPCS: 36415; 93005; 85379; 80053; 83735; 84484; 85025; 85610; 85730; 87635; 71046; 70450; 99284; J7512

== ENCOUNTER 2023-05-10 11:59 | Emergency (ER) | payer BC, OTHER ==
[2023-05-10 12:21] VITALS: RESP 18; TEMP 97.8
[2023-05-10] MEDS ORDERED: SODIUM CHLORIDE 0.9% 1,000 ML IV STA (12:41)
--- NOTE | 2023-05-10 13:04 | ED ---
General Adult HPI - General Chief complaint: Neuro Symptoms/Deficit Stated complaint: shakey Time Seen by Provider: 05/10/23 12:20 Source: patient Mode of arrival: ambulatory - History of Present Illness Initial comments: 63-year-old female past medical history of hypertension, thyroid disorder who presents the emergency department reporting weakness and shakiness in her upper and lower extremities. States that when she woke this morning she had a 10 minute episode where she can control the strength in her upper and lower extremities due to extreme shakiness. Denies any headaches or visual disturbance. No speech deficits. No history of stroke. She has had some issues with neuropathy in her lower extremities for which she follows with Dr. Taveras and has had some abnormal constitutional symptoms for which she was referred to Dr. Chan office and recently had laboratory studies performed. She hasn't received this result. Symptoms have resolved at this time. Patient states that she feels fatigued but majority of systems have resolved. She denies any infectious symptoms to include cough, fever or shortness of breath. No other alleviating, precipitating modifying factors - Related Data Home Medications Medication Instructions Recorded Confirmed SUMAtriptan succinate [Imitrex] 50 mg PO BID PRN 05/15/14 05/10/23 Levothyroxine Sodium [Synthroid] 75 mcg PO DAILY 12/13/16 05/10/23 Cholecalciferol [Vitamin D3 (25 25 mcg PO DAILY 07/13/21 05/10/23 Mcg = 1000 Iu)] Women's Multivitamin Gummy 1 tab PO DAILY 05/10/23 05/10/23 Previous Rx's Medication Instructions Recorded Gabapentin [Neurontin] 300 mg PO BID 3 Days #6 cap 05/10/23 Allergies Allergy/AdvReac Type Severity Reaction Status Date / Time cefuroxime axetil Allergy Unknown Verified 05/10/23 12:48 [From Ceftin] sulfamethoxazole Allergy Unknown Verified 05/10/23 12:48 [From Bactrim] trimethoprim [From Bactrim] Allergy Unknown Verified 05/10/23 12:48 Review of Systems ROS Statement: Those systems with pertinent positive or pertinent negative responses have been documented in the HPI. ROS Other: All systems not noted in ROS Statement are negative. Past Medical History Past Medical History: Hyperlipidemia, Thyroid Disorder Additional Past Medical History / Comment(s): hypothyroidism, migraines, glaucoma, recurrent ear infection, neuropathy History of Any Multi-Drug Resistant Organisms: MRSA Date of last positivie culture/infection: 2017 MDRO Source:: neck Past Surgical History: Section, Hysterectomy Past Psychological History: No Psychological Hx Reported Smoking Status: Former smoker Past Alcohol Use History: None Reported Past Drug Use History: None Reported General Exam General appearance: alert, in no apparent distress Head exam: Present: atraumatic, normocephalic, normal inspection Eye exam: Present: normal appearance, PERRL, EOMI. Absent: scleral icterus, conjunctival injection, periorbital swelling ENT exam: Present: normal exam, mucous membranes moist Neck exam: Present: normal inspection. Absent: tenderness, meningismus, lymphadenopathy Respiratory exam: Present: normal lung sounds bilaterally. Absent: respiratory distress, wheezes, rales, rhonchi, stridor Cardiovascular Exam: Present: regular rate, normal rhythm, normal heart sounds. Absent: systolic murmur, diastolic murmur, rubs, gallop, clicks GI/Abdominal exam: Present: soft, normal bowel sounds. Absent: distended, tenderness, guarding, rebound, rigid Extremities exam: Present: normal inspection, full ROM, normal capillary refill. Absent: tenderness, pedal edema, joint swelling, calf tenderness Back exam: Present: normal inspection Neurological exam: Present: alert, oriented X3, CN II-XII intact Psychiatric exam: Present: normal affect, normal mood Skin exam: Present: warm, dry, intact, normal color. Absent: rash Course Vital Signs 05/10/23 05/10/23 05/10/23 12:16 13:09 13:48 Temperature 97.8 F Pulse Rate 102 H 85 Respiratory 18 18 Rate Blood Pressure 104/67 111/89 119/92 O2 Sat by Pulse 98 98 99 Oximetry 05/10/23 14:44 Temperature Pulse Rate 83 Respiratory 18 Rate Blood Pressure 130/94 O2 Sat by Pulse 100 Oximetry Medical Decision Making - Medical Decision Making Was pt. sent in by a medical professional or institution (, PA, SUPERVISOR VENEER, urgent care, hospital, or penitentiary...) When possible be specific @ -No Did you speak to anyone other than the patient for history (EMS, parent, family, police, friend...)? What history was obtained from this source @ -No Did you review nursing and triage notes (agree or disagree)? Why? @ -I reviewed and agree with nursing and triage notes Were old charts reviewed (outside hosp., previous admission, EMS record, old EKG, old radiological studies, urgent care reports/EKG's, penitentiary records)? Report findings @ -I reviewed an EEG that the patient had from 2019. Also reviewed an echo that the patient had in 2021. Patient does have paperwork accompanied with her from Dr. 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 @ -Seizure disorder, anxiety, neuropathy, CVA, paresthesias, vitamin deficiency EKG interpreted by me (3pts min.). @ -Yes and demonstrates sinus rhythm with a rate of 83. OR interval 171. QRS 80. QTC 381. No acute ST segment elevations or depressions X-rays interpreted by me (1pt min.). @ -None done CT interpreted by me (1pt min.). @ -Yes and demonstrates no acute intra-abdominal process U/S interpreted by me (1pt. min.). @ -None done What testing was considered but not performed or refused? (CT, X-rays, U/S, labs)? Why? @ -None What meds were considered but not given or refused? Why? @ -None Did you discuss the management of the patient with other professionals (professionals i.e. , PA, SUPERVISOR VENEER, lab, RT, psych nurse, social media assistant, poultry helper, teacher, special technical operations officer, case management assistant)? Give summary @ -No Was smoking cessation discussed for >3mins.? @ -No Was critical care preformed (if so, how long)? @ -No Were there social determinants of health that impacted care today? How? (Homelessness, low income, unemployed, alcoholism, drug addiction, transportation, low edu. Level, literacy, decrease access to med. care, snf, rehab)? @ -No Was there de-escalation of care discussed even if they declined (Discuss DNR or withdrawal of care, Hospice)? DNR status @ -No What co-morbidities impacted this encounter? (DM, HTN, Smoking, COPD, CAD, Cancer, CVA, ARF, Chemo, Hep., AIDS, mental health diagnosis, sleep apnea, morbid obesity)? @ -None Was patient admitted / discharged? Hospital course, mention meds given and route, prescriptions, significant lab abnormalities, going to OR and other pertinent info. @ -Upon arrival patient was placed into room 21. A thorough history and physical exam is performed. Patient has no neurologic deficits at this time. NIH is 0. IV is established and laboratory studies are conducted. Head do some the patient for CT of her head as she is reporting to peripheral paresthesias. Upon return results they are discussed with the patient. I did review the patient's chart as she has had previous echo, EEG and CAT scans. I discussed the results with the patient. Patient appears stable for discharge home at this time. Instructed that she follow up with her primary care doctor for further testing and return to the emergency room for any new or worsening symptoms. Patient understood this and was agreeable. Requesting prescription for her neuropathy that was found by Dr. Taveras. I will give her a three-day supply of gabapentin however she needs to follow up with her neurologist to discuss whether this is the proper medication that she should be on. Patient understood this. She was given written and verbal discharge instructions and discharged home in stable condition Undiagnosed new problem with uncertain prognosis? @ -Yes Drug Therapy requiring intensive monitoring for toxicity (Heparin, Nitro, Insulin, Cardizem)? @ -No Were any procedures done? @ -No Diagnosis/symptom? @ -Acute tremors bilateral upper and lower extremities, peripheral paresthesias Acute, or Chronic, or Acute on Chronic? @ -Acute Uncomplicated (without systemic symptoms) or Complicated (systemic symptoms)? @ -Complicated Side effects of treatment? @ -No Exacerbation, Progression, or Severe Exacerbation? @ -No Poses a threat to life or bodily function? How? (Chest pain, [place], SC, pneumonia, PE, COPD, DKA, ARF, appy, cholecystitis, CVA, Diverticulitis, Homicidal, Suicidal, threat to staff... and all critical care pts) @ -No - Lab Data Result diagrams: 05/10/23 13:00 05/10/23 13:00 Lab Results 05/10/23 05/10/23 Range/Units 13:00 13:00 WBC 6.1 (3.8-10.6) k/uL RBC 4.89 (3.80-5.40) m/uL Hgb 14.0 (11.4-16.0) gm/dL Hct 42.1 (34.0-46.0) % MCV 86.1 (80.0-100.0) fL MCH 28.6 (25.0-35.0) pg MCHC 33.2 (31.0-37.0) g/dL RDW 12.3 (11.5-15.5) % Plt Count 409 (150-450) k/uL MPV 7.2 Neutrophils % 59 % Lymphocytes % 30 % Monocytes % 6 % Eosinophils % 2 % Basophils % 1 % Neutrophils # 3.6 (1.3-7.7) k/uL Lymphocytes # 1.8 (1.0-4.8) k/uL Monocytes # 0.4 (0-1.0) k/uL Eosinophils # 0.1 (0-0.7) k/uL Basophils # 0.1 (0-0.2) k/uL Sodium 138 (137-145) mmol/L Potassium 3.8 (3.5-5.1) mmol/L Chloride 102 (98-107) mmol/L Carbon Dioxide 27 (22-30) mmol/L Anion Gap 9 mmol/L BUN 14 (7-17) mg/dL Creatinine 0.68 (0.52-1.04) mg/dL Est GFR (CKD-EPI)AfAm >90 (>60 ml/min/1.73 sqM) Est GFR (CKD-EPI)NonAf >90 (>60 ml/min/1.73 sqM) Glucose 106 H (74-99) mg/dL Calcium 9.9 (8.4-10.2) mg/dL Magnesium 2.1 (1.6-2.3) mg/dL Total Bilirubin 0.7 (0.2-1.3) mg/dL AST 31 (14-36) U/L ALT 19 (4-34) U/L Alkaline Phosphatase 77 (38-126) U/L Creatine Kinase 69 (30-135) U/L Total Protein 8.0 (6.3-8.2) g/dL Albumin 4.8 (3.5-5.0) g/dL TSH 4.620 (0.465-4.680) mIU/L Disposition Clinical Impression: Tremors of nervous system Disposition: HOME SELF-CARE Condition: Stable Instructions (If sedation given, give patient instructions): Tremors (ED) Additional Instructions: Please follow-up with your primary care doctor for further testing. You should have a prolonged EEG completed based off of your last EEG results which were do ne 3 years ago. Return for any new or worsening symptoms Prescriptions: Gabapentin [Neurontin] 300 mg PO BID 3 Days #6 cap Is patient prescribed a controlled substance at d/c from ED?: No Referrals: Chevy Wilson DO [Primary Care Provider] - 1-2 days Time of Disposition: 14:26
[2023-05-10 13:22] LABS: Basophils # (A) 0.1 k/uL (0-0.2); Basophils % (A) 1 %; Eosinophils # (A) 0.1 k/uL (0-0.7); Eosinophils % (A) 2 %; HCT 42.1 % (34.0-46.0); Lymphocytes # (A) 1.8 k/uL (1.0-4.8); Lymphocytes % (A) 30 %; MCH 28.6 pg (25.0-35.0); MCHC 33.2 g/dL (31.0-37.0); MCV 86.1 fL (80.0-100.0); Mean Platelet Volume 7.2; Monocytes # (A) 0.4 k/uL (0-1.0); Monocytes % (A) 6 %; Neutrophils # (A) 3.6 k/uL (1.3-7.7); Neutrophils % (A) 59 %; Platelet Count 409 k/uL (150-450); RBC 4.89 m/uL (3.80-5.40); RDW 12.3 % (11.5-15.5); WBC 6.1 k/uL (3.8-10.6)
[2023-05-10] MEDS ORDERED: LORazepam 2 MG/ML INJ IV STA (13:35)
[2023-05-10 13:54] LABS: ALT 19 U/L (4-34); AST 31 U/L (14-36); African American GFR (CKD) >90 (>60 ml/min/1.73 sqM); Albumin 4.8 g/dL (3.5-5.0); Alkaline Phosphatase 77 U/L (38-126); Anion Gap 9 mmol/L; Blood Urea Nitrogen 14 mg/dL (7-17); Calcium 9.9 mg/dL (8.4-10.2); Carbon Dioxide 27 mmol/L (22-30); Chloride 102 mmol/L (98-107); Creatine Kinase 69 U/L (30-135); Glucose 106 mg/dL (74-99); Magnesium 2.1 mg/dL (1.6-2.3); Non-African American GFR(CKD) >90 (>60 ml/min/1.73 sqM); Potassium 3.8 mmol/L (3.5-5.1); Sodium 138 mmol/L (137-145); Total Bilirubin 0.7 mg/dL (0.2-1.3)
--- NOTE | 2023-05-10 14:15 | CT ---
EXAMINATION TYPE: CT brain wo con CT DLP: 1085.4 mGycm, Automated exposure control for dose reduction was used. DATE OF EXAM: 05/10/2023 2:06 PM COMPARISON: CT brain C-spine to 923 CLINICAL INDICATION:Female, 63 years old with history of arm weakness, weakness, unstable gate TECHNIQUE: Brain: Multiple axial CT images of the brain were obtained without IV contrast. Coronal and sagittal reformats reviewed. FINDINGS: Brain: Extra-axial spaces: No abnormal extra-axial fluid collections. Ventricular system: Within normal limits Cerebral parenchyma: No acute intraparenchymal hemorrhage or mass effect. The lange-white junction is well differentiated. Scattered hypoattenuating areas are seen within the white matter. Cerebellum: Unremarkable. Mass effect: No evidence of midline shift. Intracranial vasculature: unremarkable Soft tissues: Normal. Calvarium/osseous structures: No depressed skull fracture. Paranasal sinuses and mastoid air cells: Clear Visualized orbits: Bilateral aphakia IMPRESSION: 1. No acute intracranial process. 2. Nonspecific white matter changes, likely secondary to chronic small vessel ischemic disease.
[2023-05-10 14:51] VITALS: BP 130/94; PULSE 83
== END 2023-05-10 15:09 | disposition home or self-care (01) ==
LOC: EC 11:59
DX: R25.1 Tremor, unspecified (principal); R20.2 Paresthesia of skin; I10 Essential (primary) hypertension; E03.9 Hypothyroidism, unspecified; Z79.890 Hormone replacement therapy; Z79.899 Other long term (current) drug therapy; Z88.1 Allergy status to other antibiotic agents; Z88.2 Allergy status to sulfonamides; Z87.891 Personal history of nicotine dependence
CPT/HCPCS: 36415; 93005; 80053; 84443; 82550; 83735; 85025; 70450; 99285; 96374; 96361; J2060

== ENCOUNTER 2023-08-15 13:35 | Emergency (ER) | payer BC ==
--- NOTE | 2023-08-15 13:53 | ED ---
General Adult HPI - General Chief complaint: Fall Stated complaint: Fall, Hit head Time Seen by Provider: 08/15/23 13:41 Source: patient Mode of arrival: ambulatory Limitations: no limitations - History of Present Illness Initial comments: Dictation was produced using [employer] dictation software. please excuse any grammatical, word or spelling errors. Chief Complaint: 63-year-old female presents with closed head injury History of Present Illness: Patient 63-year-old female yesterday she was walking on a driveway when she tripped. She fell backwards and hit the back of her head. Denies any loss of consciousness. She was by herself. It was dark. Patient does not take anticoagulation medications she complains of some mild sor eness over the back of her head. She is worried that she may have an intracranial bleed. She is here requesting computed tomography scan of her head. Denies any neck pain. The ROS documented in this emergency department record has been reviewed and confirmed by me. Those systems with pertinent positive or negative responses have been documented in the HPI. All other systems are other negative and/or noncontributory. - Related Data Home Medications Medication Instructions Recorded Confirmed SUMAtriptan succinate [Imitrex] 50 mg PO BID PRN 05/15/14 05/10/23 Levothyroxine Sodium [Synthroid] 75 mcg PO DAILY 12/13/16 05/10/23 Cholecalciferol [Vitamin D3 (25 25 mcg PO DAILY 07/13/21 05/10/23 Mcg = 1000 Iu)] Women's Multivitamin Gummy 1 tab PO DAILY 05/10/23 05/10/23 Previous Rx's Medication Instructions Recorded Gabapentin [Neurontin] 300 mg PO BID 3 Days #6 cap 05/10/23 Allergies Allergy/AdvReac Type Severity Reaction Status Date / Time cefuroxime axetil Allergy Unknown Verified 08/15/23 13:40 [From Ceftin] sulfamethoxazole Allergy Unknown Verified 08/15/23 13:40 [From Bactrim] trimethoprim [From Bactrim] Allergy Unknown Verified 08/15/23 13:40 Review of Systems ROS Statement: Those systems with pertinent positive or pertinent negative responses have been documented in the HPI. ROS Other: All systems not noted in ROS Statement are negative. Past Medical History Past Medical History: Hyperlipidemia, Thyroid Disorder Additional Past Medical History / Comment(s): hypothyroidism, migraines, glaucoma, recurrent ear infection, neuropathy History of Any Multi-Drug Resistant Organisms: MRSA Date of last positivie culture/infection: 2017 MDRO Source:: neck Past Surgical History: Section, Hysterectomy Past Psychological History: No Psychological Hx Reported Smoking Status: Former smoker Past Alcohol Use History: None Reported Past Drug Use History: None Reported General Exam - General Exam Comments Initial Comments: Visual Physical Exam Vital signs reviewed General: Well-appearing, nontoxic, no acute distress. Head: Normocephalic, atraumatic Eyes: PERRLA, EOMI ENT: Airway patent Chest: Nonlabored breathing Skin: No visual rash, normal skin tone Neuro: Alert and oriented 3 Musculoskeletal: No gross abnormalities Limitations: no limitations Course Vital Signs 08/15/23 13:38 Temperature 98.2 F Pulse Rate 73 Respiratory 16 Rate Blood Pressure 137/77 O2 Sat by Pulse 99 Oximetry Medical Decision Making - Medical Decision Making Was pt. sent in by a medical professional or institution (, PA, BUOY TENDER, urgent care, hospital, or fpc...) When possible be specific @ -No Did you speak to anyone other than the patient for history (EMS, parent, family, police, friend...)? What history was obtained from this source @ -No Did you review nursing and triage notes (agree or disagree)? Why? @ -I reviewed and agree with nursing and triage notes Were old charts reviewed (outside hosp., previous admission, EMS record, old EKG, old radiological studies, urgent care reports/EKG's, fpc records)? Report findings @ -No old charts were reviewed Differential Diagnosis (chest pain, altered mental status, abdominal pain women, abdominal pain men, vaginal bleeding, musculoskeletal, weakness, fever, dyspnea, syncope, headache, dizziness, GI bleed, back pain, seizure, CVA, palpatations, mental health)? @ -not applicable EKG interpreted by me (3pts min.). @ -None done X-rays interpreted by me (1pt min.). @ -None done CT interpreted by me (1pt min.). @ -Computed tomography scan of the brain shows no acute processes U/S interpreted by me (1pt. min.). @ -None done What testing was considered but not performed or refused? (CT, X-rays, U/S, labs)? Why? @ -None What meds were considered but not given or refused? Why? @ -None Did you discuss the management of the patient with other professionals (professionals i.e. , PA, BUOY TENDER, lab, RT, psych nurse, rn social work, belt turner, teacher, founder and chief technical officer, disease case manager rn)? Give summary @ -No Was smoking cessation discussed for >3mins.? @ -No Was critical care preformed (if so, how long)? @ -No Were there social determinants of health that impacted care today? How? (Homelessness, low income, unemployed, alcoholism, drug addiction, transportation, low edu. Level, literacy, decrease access to med. care, [facility], rehab)? @ -No Was there de-escalation of care discussed even if they declined (Discuss DNR or withdrawal of care, Hospice)? DNR status @ -No What co-morbidities impacted this encounter? (DM, HTN, Smoking, COPD, CAD, Cancer, CVA, ARF, Chemo, Hep., AIDS, mental health diagnosis, sleep apnea, morbid obesity)? @ -None Was patient admitted / discharged? Hospital course, mention meds given and route, prescriptions, significant lab abnormalities, going to OR and other pertinent info. @ -63-year-old female presents emergency department for closed head injury. She is worried that she has an acute intracranial processes. Vital signs stable. Neurologic exam is unremarkable. Patient has no high-risk features. Computed tomography scan shows no acute processes. Patient be discharged. Undiagnosed new problem with uncertain prognosis? @ -No Drug Therapy requiring intensive monitoring for toxicity (Heparin, Nitro, Insulin, Cardizem)? @ -No Were any procedures done? @ -No Diagnosis/symptom? Acute, or Chronic, or Acute on Chronic? Uncomplicated (without systemic symptoms) or Complicated (systemic symptoms)? @ -closed head injury Side effects of treatment? @ -No Exacerbation, Progression, or Severe Exacerbation? @ -No Poses a threat to life or bodily function? How? (Chest pain, [place], [place], pneumonia, PE, COPD, DKA, ARF, appy, cholecystitis, CVA, Diverticulitis, Homicidal, Suicidal, threat to staff... and all critical care pts) @ -No Disposition Clinical Impression: Closed head injury Disposition: HOME SELF-CARE Condition: Good Instructions (If sedation given, give patient instructions): Fall Prevention for Older Adults (ED) Is patient prescribed a controlled substance at d/c from ED?: No Referrals: Chevy Wilson DO [Primary Care Provider] - 1-2 days Time of Disposition: 14:15
--- NOTE | 2023-08-15 14:13 | CT ---
EXAMINATION TYPE: CT brain wo con DATE OF EXAM: 08/15/2023 HISTORY: Fall yesterday and hit head. Closed head injury yesterday. CT DLP: 1052.4 mGycm. Automated Exposure Control for Dose Reduction was Utilized. TECHNIQUE: CT scan of the head is performed without contrast. COMPARISON: CT brain May 10, 2023 FINDINGS: There is no acute intracranial hemorrhage or midline shift identified. There is mild diff use ventricular and sulcal prominence redemonstrated. There is mild low-attenuation in the periventr icular white matter redemonstrated. The calvarium is intact. The globes are intact and the visualized sinuses are clear. IMPRESSION: No acute intracranial hemorrhage or midline shift. No significant change from most recen t prior CT.
[2023-08-15 14:41] VITALS: BP 111/73; PULSE 78; RESP 18; TEMP 98
== END 2023-08-15 14:28 | disposition home or self-care (01) ==
LOC: EC 13:35
DX: S09.90XA Unspecified injury of head, initial encounter (principal); E03.9 Hypothyroidism, unspecified; Z87.891 Personal history of nicotine dependence; Z79.890 Hormone replacement therapy; Z88.2 Allergy status to sulfonamides; Z88.1 Allergy status to other antibiotic agents; W01.0XXA Fall on same level from slipping, tripping and stumbling without subsequent striking against object, initial encounter; Y93.01 Activity, walking, marching and hiking
CPT/HCPCS: 70450; 99284

== ENCOUNTER 2023-11-28 02:12 | Observation (INO) | payer BC, OTHER ==
--- NOTE | 2023-11-28 02:23 | ED ---
General Adult HPI - General Chief complaint: Syncope Stated complaint: FALL Time Seen by Provider: 11/28/23 02:21 Source: patient, EMS Mode of arrival: EMS Limitations: no limitations - History of Present Illness Initial comments: Corinne is a 63-year-old female presents the ER today via ambulance after an apparent syncopal episode. 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 Patient reports that she had an episode where she got somewhat lightheaded felt like her legs gave out from under her and the next thing she knew she was on the floor with her head bleeding. Patient denies any chest pain palpitations or shortness of breath. Patient admits she did not sleep more than 2 hours yesterday and she did not eat during the day or before her shift. - Related Data Home Medications Medication Instructions Recorded Confirmed SUMAtriptan succinate [Imitrex] 50 mg PO BID PRN 05/15/14 05/10/23 Levothyroxine Sodium [Synthroid] 75 mcg PO DAILY 12/13/16 05/10/23 Cholecalciferol [Vitamin D3 (25 25 mcg PO DAILY 07/13/21 05/10/23 Mcg = 1000 Iu)] Women's Multivitamin Gummy 1 tab PO DAILY 05/10/23 05/10/23 Previous Rx's Medication Instructions Recorded Gabapentin [Neurontin] 300 mg PO BID 3 Days #6 cap 05/10/23 Allergies Allergy/AdvReac Type Severity Reaction Status Date / Time cefuroxime axetil Allergy Unknown Verified 08/15/23 13:40 [From Ceftin] sulfamethoxazole Allergy Unknown Verified 08/15/23 13:40 [From Bactrim] trimethoprim [From Bactrim] Allergy Unknown Verified 08/15/23 13:40 Review of Systems ROS Statement: Those systems with pertinent positive or pertinent negative responses have been documented in the HPI. ROS Other: All systems not noted in ROS Statement are negative. Past Medical History Past Medical History: Hyperlipidemia, Thyroid Disorder Additional Past Medical History / Comment(s): hypothyroidism, migraines, glaucoma, recurrent ear infection, neuropathy History of Any Multi-Drug Resistant Organisms: MRSA Date of last positivie culture/infection: 2017 MDRO Source:: neck Past Surgical History: Section, Hysterectomy Past Psychological History: No Psychological Hx Reported Smoking Status: Former smoker Past Alcohol Use History: None Reported Past Drug Use History: None Reported General Exam - General Exam Comments Initial Comments: Physical Exam GENERAL: Patient is well-developed and well-nourished. Patient is nontoxic and well- hydrated and is in no distress. HENT: Small laceration on the right posterior parietal scalp no active bleeding EYES: PERRL, EOMI PULMONARY: Unlabored respirations. No audible rales rhonchi or wheezing was noted. CARDIOVASCULAR: There is a regular rate and rhythm without any murmurs gallops or rubs. ABDOMEN: Soft and nontender with normal bowel sounds. SKIN: Skin is clear with no lesions or rashes and otherwise unremarkable. : Deferred NEUROLOGIC: Patient is alert and oriented to person and place but is very repetitive moving all extremities spontaneously MUSCULOSKELETAL: Normal extremities with adequate strength and full range of motion. No lower extremity swelling or edema. No calf tenderness. PSYCHIATRIC: Normal psychiatric evaluation. Limitations: no limitations Course Vital Signs 11/28/23 11/28/23 11/28/23 02:14 03:21 04:00 Temperature 97.2 F L Pulse Rate 94 85 91 Respiratory 18 15 15 Rate Blood Pressure 106/72 128/81 113/76 O2 Sat by Pulse 98 98 98 Oximetry 11/28/23 11/28/23 05:00 06:00 Temperature Pulse Rate 92 93 Respiratory 14 14 Rate Blood Pressure 115/81 102/70 O2 Sat by Pulse 96 96 Oximetry EKG Findings - EKG Comments: EKG Findings:: EKG interpreted by me, EKG obtained due to complaint of syncope EKG obtained at 2 30 3 AM, rate is 95 rhythm is sinus, IN 169 QRS 84 QTc [address] elevations or depressions no evidence of ischemia infarction or pathologic arrhythmia. Medical Decision Making - Medical Decision Making Was pt. sent in by a medical professional or institution (, PA, SALES AND TRAINING SPECIALIST, urgent care, hospital, or skilled nursing...) When possible be specific @ -No Did you speak to anyone other than the patient for history (EMS, parent, family, police, friend...)? What history was obtained from this source @ -EMS Did you review nursing and triage notes (agree or disagree)? Why? @ -I reviewed and agree with nursing and triage notes Were old charts reviewed (outside hosp., previous admission, EMS record, old EKG, old radiological studies, urgent care reports/EKG's, skilled nursing records)? Report findings @ -No old charts were reviewed Differential Diagnosis (chest pain, altered mental status, abdominal pain women, abdominal pain men, vaginal bleeding, weakness, fever, dyspnea, syncope, heada shahana, dizziness, GI bleed, back pain, seizure, CVA, palpatations, mental health)? @ -Differential Syncope: Valvular disease, hypertrophic cardiomyopathy, pulmonary embolism, tamponade, tachycardia, bradycardia, [place], hypovolemia, hemorrhage, dissection, anemia, intracranial hemorrhage, seizure, hypoglycemia, carbon monoxide poisoning, this is not meant to be an all-inclusive list. EKG interpreted by me (3pts min.). @ -As above X-rays interpreted by me (1pt min.). @ -None done CT interpreted by me (1pt min.). @ -No obvious brain bleeds no skull fracture U/S interpreted by me (1pt. min.). @ -None done What testing was considered but not performed or refused? (CT, X-rays, U/S, labs)? Why? @ -None What meds were considered but not given or refused? Why? @ -None Did you discuss the management of the patient with other professionals (professionals i.e. , PA, SALES AND TRAINING SPECIALIST, lab, RT, psych nurse, child protective services social worker, splicing machine operator, teacher, special service officer, assistant case manager)? Give summary @ -Trauma physician Dr. Cottrell Was smoking cessation discussed for >3mins.? @ -No Was critical care preformed (if so, how long)? @ -No Were there social determinants of health that impacted care today? How? (Homelessness, low income, unemployed, alcoholism, drug addiction, transportation, low edu. Level, literacy, decrease access to med. care, nursing home, rehab)? @ -No Was there de-escalation of care discussed even if they declined (Discuss DNR or withdrawal of care, Hospice)? DNR status @ -No What co-morbidities impacted this encounter? (DM, HTN, Smoking, COPD, CAD, Cancer, CVA, ARF, Chemo, Hep., AIDS, mental health diagnosis, sleep apnea, morbid obesity)? @ -None Was patient admitted / discharged? Hospital course, mention meds given and route, prescriptions, significant lab abnormalities, going to OR and other pertinent info. @ -Admit Patient was seen and evaluated, history was obtained from EMS and patient. 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 No chest pain or palpitations. No arrhythmias on EKG. Labs are reviewed and there is no critical abnormalities. However patient continues to ask the same questions over and over when things are explained to her she continues to repeat her ques tions. At this time I am concerned the patient has a rather significant concussion and recommend admission for observation. Undiagnosed new problem with uncertain prognosis? @ -No Drug Therapy requiring intensive monitoring for toxicity (Heparin, Nitro, Insulin, Cardizem)? @ -No Were any procedures done? @ -No Diagnosis/symptom? @ -Concussion Acute, or Chronic, or Acute on Chronic? @ -Acute Uncomplicated (without systemic symptoms) or Complicated (systemic symptoms)? @ -Default Side effects of treatment? @ -No Exacerbation, Progression, or Severe Exacerbation? @ -No Poses a threat to life or bodily function? How? (Chest pain, [place], [place], pneumonia, PE, COPD, DKA, ARF, appy, cholecystitis, CVA, Diverticulitis, Homicidal, Suicidal, threat to staff... and all critical care pts) @ -Unlikely Diagnosis/symptom? @ -Syncope Acute, or Chronic, or Acute on Chronic? @ -Acute Uncomplicated (without systemic symptoms) or Complicated (systemic symptoms)? @ -Default Side effects of treatment? @ -None Exacerbation, Progression, or Severe Exacerbation] @ -No Poses a threat to life or bodily function? @ -Unlikely - Lab Data Result diagrams: 11/28/23 02:33 11/28/23 02:33 Lab Results 11/28/23 11/28/23 11/28/23 Range/Units 02:33 02:33 02:33 WBC 14.6 H (3.8-10.6) k/uL RBC 4.87 (3.80-5.40) m/uL Hgb 14.0 (11.4-16.0) gm/dL Hct 42.4 (34.0-46.0) % MCV 87.1 (80.0-100.0) fL MCH 28.7 (25.0-35.0) pg MCHC 33.0 (31.0-37.0) g/dL RDW 12.8 (11.5-15.5) % Plt Count 383 (150-450) k/uL MPV 7.5 Neutrophils % 85 % Lymphocytes % 9 % Monocytes % 4 % Eosinophils % 1 % Basophils % 1 % Neutrophils # 12.4 H (1.3-7.7) k/uL Lymphocytes # 1.3 (1.0-4.8) k/uL Monocytes # 0.6 (0-1.0) k/uL Eosinophils # 0.1 (0-0.7) k/uL Basophils # 0.1 (0-0.2) k/uL PT 10.4 (10.0-12.5) sec INR 0.9 (<1.2) APTT 21.8 L (22.0-30.0) sec Sodium 143 (137-145) mmol/L Potassium 4.3 (3.5-5.1) mmol/L Chloride 105 (98-107) mmol/L Carbon Dioxide 24 (22-30) mmol/L Anion Gap 14 mmol/L BUN 21 H (7-17) mg/dL Creatinine 0.64 (0.52-1.04) mg/dL Est GFR (CKD-EPI)AfAm >90 (>60 ml/min/1.73 sqM) Est GFR (CKD-EPI)NonAf >90 (>60 ml/min/1.73 sqM) Glucose 108 H (74-99) mg/dL Calcium 8.8 (8.4-10.2) mg/dL Magnesium 2.0 (1.6-2.3) mg/dL Total Bilirubin 0.6 (0.2-1.3) mg/dL AST 33 (14-36) U/L ALT 17 (4-34) U/L Alkaline Phosphatase 84 (38-126) U/L Troponin I (0.000-0.034) ng/mL Total Protein 7.3 (6.3-8.2) g/dL Albumin 4.5 (3.5-5.0) g/dL 11/28/23 Range/Units 02:33 WBC (3.8-10.6) k/uL RBC (3.80-5.40) m/uL Hgb (11.4-16.0) gm/dL Hct (34.0-46.0) % MCV (80.0-100.0) fL MCH (25.0-35.0) pg MCHC (31.0-37.0) g/dL RDW (11.5-15.5) % Plt Count (150-450) k/uL MPV Neutrophils % % Lymphocytes % % Monocytes % % Eosinophils % % Basophils % % Neutrophils # (1.3-7.7) k/uL Lymphocytes # (1.0-4.8) k/uL Monocytes # (0-1.0) k/uL Eosinophils # (0-0.7) k/uL Basophils # (0-0.2) k/uL PT (10.0-12.5) sec INR (<1.2) APTT (22.0-30.0) sec Sodium (137-145) mmol/L Potassium (3.5-5.1) mmol/L Chloride (98-107) mmol/L Carbon Dioxide (22-30) mmol/L Anion Gap mmol/L BUN (7-17) mg/dL Creatinine (0.52-1.04) mg/dL Est GFR (CKD-EPI)AfAm (>60 ml/min/1.73 sqM) Est GFR (CKD-EPI)NonAf (>60 ml/min/1.73 sqM) Glucose (74-99) mg/dL Calcium (8.4-10.2) mg/dL Magnesium (1.6-2.3) mg/dL Total Bilirubin (0.2-1.3) mg/dL AST (14-36) U/L ALT (4-34) U/L Alkaline Phosphatase (38-126) U/L Troponin I <0.012 (0.000-0.034) ng/mL Total Protein (6.3-8.2) g/dL Albumin (3.5-5.0) g/dL Disposition Clinical Impression: Syncope, Concussion, Scalp laceration Disposition: ADMITTED IP TO THIS HOSP Condition: Stable Is patient prescribed a controlled substance at d/c from ED?: No
[2023-11-28] MEDS: SODIUM CHLORIDE 0.9% 1,000 ML IV STA (02:39)
[2023-11-28 02:47] LABS: Basophils # (A) 0.1 k/uL (0-0.2); Basophils % (A) 1 %; Eosinophils # (A) 0.1 k/uL (0-0.7); Eosinophils % (A) 1 %; HCT 42.4 % (34.0-46.0); Lymphocytes # (A) 1.3 k/uL (1.0-4.8); Lymphocytes % (A) 9 %; MCH 28.7 pg (25.0-35.0); MCV 87.1 fL (80.0-100.0); Mean Platelet Volume 7.5; Monocytes # (A) 0.6 k/uL (0-1.0); Monocytes % (A) 4 %; Neutrophils # (A) 12.4 k/uL (1.3-7.7); Neutrophils % (A) 85 %; Platelet Count 383 k/uL (150-450); RBC 4.87 m/uL (3.80-5.40); RDW 12.8 % (11.5-15.5); WBC 14.6 k/uL (3.8-10.6)
[2023-11-28 02:57] LABS: ALT 17 U/L (4-34); African American GFR (CKD) >90 (>60 ml/min/1.73 sqM); Albumin 4.5 g/dL (3.5-5.0); Anion Gap 14 mmol/L; Blood Urea Nitrogen 21 mg/dL (7-17); Calcium 8.8 mg/dL (8.4-10.2); Carbon Dioxide 24 mmol/L (22-30); Chloride 105 mmol/L (98-107); Glucose 108 mg/dL (74-99); Non-African American GFR(CKD) >90 (>60 ml/min/1.73 sqM); Sodium 143 mmol/L (137-145); Total Bilirubin 0.6 mg/dL (0.2-1.3); Total Protein 7.3 g/dL (6.3-8.2)
[2023-11-28 03:03] LABS: Potassium 4.3 mmol/L (3.5-5.1)
[2023-11-28 03:04] LABS: AST 33 U/L (14-36); Alkaline Phosphatase 84 U/L (38-126); INR 0.9 (<1.2); Partial Thromboplastin Time 21.8 sec (22.0-30.0); Prothrombin Time 10.4 sec (10.0-12.5)
--- NOTE | 2023-11-28 03:26 | CT ---
EXAM: CT Head Without Intravenous Contrast CLINICAL HISTORY: ITS.REASON CT Reason: fall, confusion TECHNIQUE: Axial computed tomography images of the head/brain without intravenous contrast. CTDI is 45.2 mGy and DLP is 1098 mGy-cm. This CT exam was performed using one or more of the following dose reduction techniques: automated exposure control, adjustment of the mA and/or kV according to patient size, and/or use of iterative reconstruction technique. COMPARISON: CT Head dated 08/15/23 FINDINGS: Brain: Volume loss with prominent ventricles and sulci. Periventricular white matter hypoattenuation likely reflects chronic small vessel disease. No hemorrhage. Ventricles: See above. Bones/joints: Unremarkable. No acute fracture. Soft tissues: Right parietal scalp swelling/laceration. Sinuses: Unremarkable as visualized. No acute sinusitis. Mastoid air cells: Unremarkable as visualized. No mastoid effusion. IMPRESSION: 1. No evidence of acute intracranial abnormality or skull fracture. 2. Right parietal scalp swelling/laceration. EXAM: CT Cervical Spine Without Intravenous Contrast CLINICAL HISTORY: ITS.REASON CT Reason: fall, confusion TECHNIQUE: Axial computed tomography images of the cervical spine without intravenous contrast. CTDI is 6 mGy and DLP is 185.1 mGy-cm. This CT exam was performed using one or more of the following dose reduction techniques: automated exposure control, adjustment of the mA and/or kV according to patient size, and/or use of iterative reconstruction technique. COMPARISON: No relevant prior studies available. FINDINGS: Vertebrae: Unremarkable. No acute fracture. Discs/spinal canal/neural foramina: Multilevel degenerative changes. No spinal canal stenosis. Soft tissues: Unremarkable. IMPRESSION: No acute findings in the cervical spine.
--- NOTE | 2023-11-28 03:33 | XR ---
EXAM: XR Chest, 2 Views CLINICAL HISTORY: ITS.REASON XR Reason: syncope TECHNIQUE: Frontal and lateral views of the chest. COMPARISON: XR Chest dated 07/08/2022 FINDINGS: Lungs: Unremarkable. No consolidation. Pleural space: Unremarkable. No pneumothorax. Heart: Unremarkable. No cardiomegaly. Mediastinum: Unremarkable. Normal mediastinal contour. Bones/joints: Unremarkable. No acute fracture. IMPRESSION: No evidence of acute cardiopulmonary disease.
[2023-11-28] MEDS ORDERED: NALOXONE 0.4 MG/ML 1 ML VIAL IV PRN (06:16)
[2023-11-28] MEDS: HYDROcodone/APAP 5-325MG 1 EACH TAB PO STA (06:56)
[2023-11-28] MEDS ORDERED: SUMAtriptan succinate 50 MG TAB PO PRN (09:49)
[2023-11-28] MEDS: CHOLECALCIFEROL 25 MCG (1000 IU) TABLET PO SCH (10:35)
[2023-11-28] MEDS: MULTIVITAMINS, THERA 1 EACH TAB PO SCH (10:35)
[2023-11-28] MEDS: LEVOTHYROXINE 75 MCG TAB PO SCH (10:35)
--- NOTE | 2023-11-28 11:29 | P.CRDCN ---
History of Present Illness Consult date: 11/28/23 Consult reason: sycope History of present illness: History of present illness: This is a 63-year-old female with past medical history of seasonal allergies, hypothyroidism. She was previously seen in the office by Dr. Neves in 2019. When she was evaluated in the office in 2019, it was for syncope thought to be consistent with vasovagal syncope and plan was for event monitor which she did not complete. She does not follow with a compliance nurse. We have been asked to evaluate the patient for syncope. 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 She is not sure if she had a loss of consciousness or not. She states she has not been eating and drinking well as she is sleeping during the day and working at night. She denies having any chest pain no shortness of breath no nausea no sweats or hot feeling. She denies history of smoking and no family history of cardiac issues. She states she has had weight loss but is unable to quantify it. Patient is seen today in the emergency center waiting for a bed on the observation unit. Neurology is also on consult. EKG sinus rhythm Chest x-ray: No acute process CT of the head and neck revealed no acute intracranial abnormality. Right parietal scalp swelling laceration. No acute findings in the cervical spine. WBC 14.6, hemoglobin 14, platelet count 383. INR 0.9. Electrolytes are normal. BUN 21 creatinine 0.64. Glucose 108. Troponin negative x 2. Magnesium 2.0. Liver function test are normal. Home cardiac medications: None, patient is on levothyroxine 75 mcg daily. Echocardiogram performed 06/14/2022 reveals EF of 55 to 60%. Mild mitral and tricuspid regurgitation. Review Of Systems: At the time of my exam: CONSTITUTIONAL: Denies fever or chills. HEENT: Denies blurred vision, vision changes, or eye pain. Denies hemoptysis CARDIOVASCULAR: Denies chest pain. Denies orthopnea. Denies PND. Denies palpitations RESPIRATORY: Denies shortness of breath. GASTROINTESTINAL: Denies abdominal pain. Denies nausea or vomiting. HEMATOLOGIC: Denies bleeding disorders. GENITOURINARY: Denies any blood in urine. SKIN: Denies pruitis. Denies rash. Physical examination: Gen: This is a 63-year-old female in no acute distress. VS: reviewed HEENT: Head is atraumatic, normocephalic. Pupils equal, round. Sclerae is anicteric. NECK: Supple. No JVD. LUNGS: Clear to auscultation. No wheezes or rhonchi. No intercostal retractions. HEART: Regular rate and rhythm. No murmur. ABDOMEN: Soft No tenderness. EXTREMITIES: No pedal edema. No calf tenderness. NEUROLOGICAL: Patient is awake, alert and oriented x3. Assessment: Possible syncopal episode, patient is unsure if there was loss of consciousness Weakness Concussion Weight loss Remote history of tobacco use Plan: Obtain orthostatic vital signs Obtain TSH and free T4 Complete 3 troponins Obtain 2-D echocardiogram and Doppler study to assess cardiac structure and function Further recommendations to follow based upon clinical course Thank you kindly for this consultation. Nurse practitioner note has been reviewed, I agree with documented findings and plan of care. Patient was seen and examined. Past Medical History Past Medical History: Hyperlipidemia, Thyroid Disorder Additional Past Medical History / Comment(s): hypothyroidism, migraines, glaucoma, recurrent ear infection, neuropathy History of Any Multi-Drug Resistant Organisms: MRSA Date of last positivie culture/infection: 2017 MDRO Source:: neck Past Surgical History: Section, Hysterectomy Past Psychological History: No Psychological Hx Reported Smoking Status: Former smoker Past Alcohol Use History: None Reported Past Drug Use History: None Reported Medications and Allergies Home Medications Medication Instructions Recorded Confirmed Type SUMAtriptan succinate [Imitrex] 50 mg PO DAILY PRN 05/15/14 11/28/23 History Levothyroxine Sodium [Synthroid] 75 mcg PO DAILY 12/13/16 11/28/23 History Cholecalciferol [Vitamin D3 (25 25 mcg PO DAILY 07/13/21 11/28/23 History Mcg = 1000 Iu)] ALPRAZolam [Xanax] 0.25 mg PO DAILY PRN 11/28/23 11/28/23 History HYDROcodone/APAP 5-325MG [[place] 1 tab PO DAILY PRN 11/28/23 11/28/23 History 5-325] Multivitamins, Thera [Multivitamin 1 tab PO DAILY 11/28/23 11/28/23 History (formulary)] Allergies Allergy/AdvReac Type Severity Reaction Status Date / Time cefuroxime axetil Allergy Unknown Verified 11/28/23 09:40 [From Ceftin] sulfamethoxazole Allergy Unknown Verified 11/28/23 09:40 [From Bactrim] trimethoprim [From Bactrim] Allergy Unknown Verified 11/28/23 09:40 Physical Exam Vitals: Vital Signs Temp Pulse Resp BP Pulse Ox 11/28/23 06:00 93 14 102/70 96 11/28/23 05:00 92 14 115/81 96 11/28/23 04:00 91 15 113/76 98 11/28/23 03:21 85 15 128/81 98 11/28/23 02:14 97.2 F L 94 18 106/72 98 Intake and Output 11/27/23 11/28/23 11/28/23 22:59 06:59 14:59 Other: Weight 49.895 kg Results 11/28/23 02:33 11/28/23 02:33 Cardiac Enzymes 11/28/23 11/28/23 Range/Units 02:33 02:33 AST 33 (14-36) U/L Troponin I <0.012 (0.000-0.034) ng/mL Coagulation 11/28/23 Range/Units 02:33 PT 10.4 (10.0-12.5) sec APTT 21.8 L (22.0-30.0) sec CBC 11/28/23 Range/Units 02:33 WBC 14.6 H (3.8-10.6) k/uL RBC 4.87 (3.80-5.40) m/uL Hgb 14.0 (11.4-16.0) gm/dL Hct 42.4 (34.0-46.0) % Plt Count 383 (150-450) k/uL Comprehensive Metabolic Panel 11/28/23 Range/Units 02:33 Sodium 143 (137-145) mmol/L Potassium 4.3 (3.5-5.1) mmol/L Chloride 105 (98-107) mmol/L Carbon Dioxide 24 (22-30) mmol/L BUN 21 H (7-17) mg/dL Creatinine 0.64 (0.52-1.04) mg/dL Glucose 108 H (74-99) mg/dL Calcium 8.8 (8.4-10.2) mg/dL AST 33 (14-36) U/L ALT 17 (4-34) U/L Alkaline Phosphatase 84 (38-126) U/L Total Protein 7.3 (6.3-8.2) g/dL Albumin 4.5 (3.5-5.0) g/dL Current Medications Generic Name Dose Route Start Last Admin Trade Name Freq PRN Reason Stop Dose Admin Naloxone HCl 0.2 mg 11/28/23 06:16 Naloxone 0.4 Mg/Ml 1 Ml Vial IV Q2M PRN Opioid Reversal Intake and Output 11/27/23 11/28/23 11/28/23 22:59 06:59 14:59 Other: Weight 49.895 kg 11/28/23 02:33 11/28/23 02:33
--- NOTE | 2023-11-28 11:53 | P.CONS ---
History of Present Illness - Reason for Consult Syncope - History of Present Illness 63-year-old female came in after syncopal episode at work. Patient had a similar event in 2019 at the time patient was diagnosed with vasovagal syncope. Had an event monitor in the past had an echocardiogram which was within normal limits patient does not have any murmurs at this time patient states she has not been eating or drinking very well because of her night shifts and that is the reason she lost consciousness and she does not believe she has any other issues or problems. Patient does have leukocytosis patient dizzy did hit her head because of which CT of the head and neck was done which did not show any acute intracranial abnormality right partial scalp swelling and isolation was seen. Patient denies any symptoms of UTI or pneumonia or any other infection. Patient had any diarrhea patient is a thin built female with a 19 BMI blood pressure is low normal 102/70 troponins were negative. EKG is within normal notes without any acute ST-T wave changes patient does have mild leukocytosis patient does have history of hypothyroidism does take 75 mcg of levothyroxine echocardiogram in June 2022 showed normal ejection fraction without any significant valvular abnormalities. REVIEW OF SYSTEMS: CONSTITUTIONAL: No fever, no malaise, no fatigue. HEENT: No recent visual problems or hearing problems. Denied any sore throat. CARDIOVASCULAR: No chest pain, orthopnea, PND, no palpitations, PULMONARY: No shortness of breath, no cough, no hemoptysis. GASTROINTESTINAL: No diarrhea, no nausea, no vomiting, no abdominal pain. NEUROLOGICAL: No headaches, no weakness, no numbness. HEMATOLOGICAL: Denies any bleeding or petechiae. GENITOURINARY: Denies any burning micturition, frequency, or urgency. MUSCULOSKELETAL/RHEUMATOLOGICAL: Denies any joint pain, swelling, or any muscle pain. ENDOCRINE: Denies any polyuria or polydipsia. The rest of the 14-point review of systems is negative. PHYSICAL EXAMINATION: GENERAL: The patient is alert and oriented x3, not in any acute distress. Thin built female HEENT: Pupils are round and equally reacting to light. EOMI. No scleral icterus. No conjunctival pallor. Normocephalic, atraumatic. No pharyngeal erythema. No thyromegaly. CARDIOVASCULAR: S1 and S2 present. No murmurs, rubs, or gallops. PULMONARY: Chest is clear to auscultation, no wheezing or crackles. ABDOMEN: Soft, nontender, nondistended, normoactive bowel sounds. No palpable organomegaly. MUSCULOSKELETAL: No joint swelling or deformity. EXTREMITIES: No cyanosis, clubbing, or pedal edema. NEUROLOGICAL: Gross neurological examination did not reveal any focal deficits. SKIN: No rashes. Assessment and plan -Syncope: Etiology may be mild dehydration patient will be hydrated gently echocardiogram will be obtained possibly of discharge may be later today or tomorrow -Hypothyroidism -History of migraine DVT prophylaxis: Ambulation Past Medical History Past Medical History: Hyperlipidemia, Thyroid Disorder Additional Past Medical History / Comment(s): hypothyroidism, migraines, glaucoma, recurrent ear infection, neuropathy History of Any Multi-Drug Resistant Organisms: MRSA Year Discovered:: 2018 MDRO Source:: neck Past Surgical History: Section, Hysterectomy Past Psychological History: No Psychological Hx Reported Smoking Status: Former smoker Past Alcohol Use History: None Reported Past Drug Use History: None Reported Medications and Allergies Home Medications Medication Instructions Recorded Confirmed Type SUMAtriptan succinate [Imitrex] 50 mg PO DAILY PRN 05/15/14 11/28/23 History Levothyroxine Sodium [Synthroid] 75 mcg PO DAILY 12/13/16 11/28/23 History Cholecalciferol [Vitamin D3 (25 25 mcg PO DAILY 07/13/21 11/28/23 History Mcg = 1000 Iu)] ALPRAZolam [Xanax] 0.25 mg PO DAILY PRN 11/28/23 11/28/23 History HYDROcodone/APAP 5-325MG [[place] 1 tab PO DAILY PRN 11/28/23 11/28/23 History 5-325] Multivitamins, Thera [Multivitamin 1 tab PO DAILY 11/28/23 11/28/23 History (formulary)] Allergies Allergy/AdvReac Type Severity Reaction Status Date / Time cefuroxime axetil Allergy Unknown Verified 11/28/23 09:40 [From Ceftin] sulfamethoxazole Allergy Unknown Verified 11/28/23 09:40 [From Bactrim] trimethoprim [From Bactrim] Allergy Unknown Verified 11/28/23 09:40 Physical Exam Vitals: Vital Signs Temp Pulse Resp BP Pulse Ox 11/28/23 06:00 93 14 102/70 96 11/28/23 05:00 92 14 115/81 96 11/28/23 04:00 91 15 113/76 98 11/28/23 03:21 85 15 128/81 98 11/28/23 02:14 97.2 F L 94 18 106/72 98 Intake and Output 11/27/23 11/28/23 11/28/23 22:59 06:59 14:59 Other: Weight 49.895 kg Results CBC & Chem 7: 11/28/23 02:33 11/28/23 02:33 Labs: Abnormal Lab Results - Last 24 Hours (Table) 11/28/23 11/28/23 11/28/23 Range/Units 02:33 02:33 02:33 WBC 14.6 H (3.8-10.6) k/uL Neutrophils # 12.4 H (1.3-7.7) k/uL APTT 21.8 L (22.0-30.0) sec BUN 21 H (7-17) mg/dL Glucose 108 H (74-99) mg/dL
--- NOTE | 2023-11-28 12:26 | P.GSHP ---
History of Present Illness H&P Date: 11/28/23 CHIEF COMPLAINT: Syncope HISTORY OF PRESENT ILLNESS: This is a 63-year-old female who presented to the hospital after having a syncopal episode yesterday while at work and hit her head. Patient reports that she has been very stressed out. She has not been eating or sleeping very well. And she is now working night baker. Patient per ER report had repetitive speech. There was concern for concussion. Patient did hit her head and does have a small hematoma abrasion on the right side of her he ad. CT scan of the head and C-spine completed showing no evidence of fractures or acute bleeds. She had a right parietal scalp swelling/ laceration noted. Area is scabbed with no further bleeding. Patient is awake and alert answering questions appropriately. She does have some repetitive speech but per family at bedside this is her norm. Patient reports also when she is sick with COVID she is passed out. Patient denies any cough at this time. Patient has been admitted to the trauma service. PAST MEDICAL HISTORY: Hyperlipidemia, hypothyroidism, glaucoma, migraines PAST SURGICAL HISTORY: , hysterectomy MEDICATIONS: See below ALLERGIES: See below SOCIAL HISTORY: No illicit drug use. REVIEW OF SYSTEMS: CONSTITUTIONAL: Denies fever or chills. HEENT: Denies blurred vision, vision changes, or eye pain. Denies hemoptysis CARDIOVASCULAR: Denies chest pain or pressure. RESPIRATORY: No shortness of breath. GASTROINTESTINAL: Denies any nausea or vomiting. Denies any pain. Denies any change in bowel habits. HEMATOLOGIC: Denies bleeding disorders. GENITOURINARY: Denies any blood in urine or increased urinary frequency. SKIN: Denies pruitis. Denies rash. PHYSICAL EXAM: VITAL SIGNS: Reviewed GENERAL: Well-developed in no acute distress. HEENT: No sclera icterus. Extraocular movements grossly intact. Moist buccal mucosa. Head is small swelling noted in the right parietal area. Area is scabbed no active bleeding. Mild tenderness with palpation, normocephalic. No nasal drainage. ABDOMEN: Soft. Nondistended. Nontender NEUROLOGIC: Alert and oriented. Cranial nerves II through XII grossly intact. Speech is repetitive LABORATORY DATA: WBC 14.6 Hgb 14 platelets 383 INR 0.9 Sodium is 143 potassium 4.3 creatinine 0.64 LFTs normal Troponin negative x 3 IMAGING: CT scan head and cervical spine no evidence of acute intracranial abnormality of the skull. Right parietal scalp swelling/laceration. No acute findings in the cervical spine. ASSESSMENT: 1. Possible syncopal episode with trauma to the head 2. Right parietal scalp swelling/laceration 3. Possible concussion PLAN: -Consults placed for neurology, cardiology and medical service -Continue supportive care -Continue IV fluids -Continue regular diet -Tylenol added for pain control -GI prophylaxis Pepcid and DVT prophylaxis subcu heparin Physician Sail Cutter note has been reviewed by physician. Signing provider agrees with the documented findings, assessment, and plan of care. Past Medical History Past Medical History: Hyperlipidemia, Thyroid Disorder Additional Past Medical History / Comment(s): hypothyroidism, migraines, glaucoma, recurrent ear infection, neuropathy History of Any Multi-Drug Resistant Organisms: MRSA Date of last positivie culture/infection: 2017 MDRO Source:: neck Past Surgical History: Section, Hysterectomy Past Psychological History: No Psychological Hx Reported Smoking Status: Former smoker Past Alcohol Use History: None Reported Past Drug Use History: None Reported Medications and Allergies Home Medications Medication Instructions Recorded Confirmed Type SUMAtriptan succinate [Imitrex] 50 mg PO DAILY PRN 05/15/14 11/28/23 History Levothyroxine Sodium [Synthroid] 75 mcg PO DAILY 12/13/16 11/28/23 History Cholecalciferol [Vitamin D3 (25 25 mcg PO DAILY 07/13/21 11/28/23 History Mcg = 1000 Iu)] ALPRAZolam [Xanax] 0.25 mg PO DAILY PRN 11/28/23 11/28/23 History HYDROcodone/APAP 5-325MG [[place] 1 tab PO DAILY PRN 11/28/23 11/28/23 History 5-325] Multivitamins, Thera [Multivitamin 1 tab PO DAILY 11/28/23 11/28/23 History (formulary)] Allergies Allergy/AdvReac Type Severity Reaction Status Date / Time cefuroxime axetil Allergy Unknown Verified 11/28/23 09:40 [From Ceftin] sulfamethoxazole Allergy Unknown Verified 11/28/23 09:40 [From Bactrim] trimethoprim [From Bactrim] Allergy Unknown Verified 11/28/23 09:40 Surgical - Exam Vital Signs Temp Pulse Resp BP Pulse Ox 97.2 F L 94 18 106/72 98 11/28/23 02:14 11/28/23 02:14 11/28/23 02:14 11/28/23 02:14 11/28/23 02:14 Patient Seen Date: 11/28/23 Patient Seen Time: 09:30 Results - Labs 11/28/23 02:33 11/28/23 02:33 Abnormal Lab Results - Last 24 Hours (Table) 11/28/23 11/28/23 11/28/23 Range/Units 02:33 02:33 02:33 WBC 14.6 H (3.8-10.6) k/uL Neutrophils # 12.4 H (1.3-7.7) k/uL APTT 21.8 L (22.0-30.0) sec BUN 21 H (7-17) mg/dL Glucose 108 H (74-99) mg/dL Diabetes panel 11/28/23 Range/Units 02:33 Sodium 143 (137-145) mmol/L Potassium 4.3 (3.5-5.1) mmol/L Chloride 105 (98-107) mmol/L Carbon Dioxide 24 (22-30) mmol/L BUN 21 H (7-17) mg/dL Creatinine 0.64 (0.52-1.04) mg/dL Glucose 108 H (74-99) mg/dL Calcium 8.8 (8.4-10.2) mg/dL AST 33 (14-36) U/L ALT 17 (4-34) U/L Alkaline Phosphatase 84 (38-126) U/L Total Protein 7.3 (6.3-8.2) g/dL Albumin 4.5 (3.5-5.0) g/dL Calcium panel 11/28/23 Range/Units 02:33 Calcium 8.8 (8.4-10.2) mg/dL Albumin 4.5 (3.5-5.0) g/dL Pituitary panel 11/28/23 Range/Units 02:33 Sodium 143 (137-145) mmol/L Potassium 4.3 (3.5-5.1) mmol/L Chloride 105 (98-107) mmol/L Carbon Dioxide 24 (22-30) mmol/L BUN 21 H (7-17) mg/dL Creatinine 0.64 (0.52-1.04) mg/dL Glucose 108 H (74-99) mg/dL Calcium 8.8 (8.4-10.2) mg/dL Adrenal panel 11/28/23 Range/Units 02:33 Sodium 143 (137-145) mmol/L Potassium 4.3 (3.5-5.1) mmol/L Chloride 105 (98-107) mmol/L Carbon Dioxide 24 (22-30) mmol/L BUN 21 H (7-17) mg/dL Creatinine 0.64 (0.52-1.04) mg/dL Glucose 108 H (74-99) mg/dL Calcium 8.8 (8.4-10.2) mg/dL Total Bilirubin 0.6 (0.2-1.3) mg/dL AST 33 (14-36) U/L ALT 17 (4-34) U/L Alkaline Phosphatase 84 (38-126) U/L Total Protein 7.3 (6.3-8.2) g/dL Albumin 4.5 (3.5-5.0) g/dL
[2023-11-28] MEDS: SODIUM CHLORIDE 0.9% 1,000 ML IV SCH (15:21)
--- NOTE | 2023-11-28 15:47 | P.CNNES ---
History of Present Illness Consult date: 11/28/23 Requesting physician: Nessa Yee Reason for Consult: Concussion History of Present Illness: Patient is a 63-year-old female with history of previous syncopal spells, came to the hospital by ambulance early this morning at 2:12 AM for a syncopal spell. Patient states that she was at work, she states that she got up and pulled the mop in the bucket, and started mopping, when she became dizzy and fell. Patient believes that she did not pass out "all the way", although she did fall, hit head producing a big laceration. She states that if she was out, was "not too long". She did not have any tongue bite or loss of control of urine. No convulsive activity. Patient states that she fell because she does not eat well. Patient states that she has history of syncopal spells in the past, but each time were associated with her infection with COVID. Patient's daughter was also present by her side, who states that patient is falling about 5 times a year in the last 4-years. Patient and her daughter are seeing completely opposite regarding frequency of the syncopal spells. Patient states that she does not pass out whereas patient's daughter states that she does. On reviewing of records, it appears patient had presented with syncopal spell on 07/13/2021 and also on 06/22/2020. EMS flowsheet not available in the chart. Vital signs on arrival blood pressure 106/72, pulse rate 94 temperature 97.2.. CBC with WBC 14.6 normal hemoglobin and platelets. PT PTT normal. CMP normal, troponin negative. CT head showed no evidence of acute intracranial abnormality seen no skull fracture. Right parietal scalp swelling/laceration. CT of the cervical spine showed no acute findings in the cervical spine. I personally reviewed CT head, agree with the findings. EKG and chest x-ray are normal. Patient had an abnormal EEG on 07/29/2020, which revealed intermittent rhythmic and dysrhythmic theta involving bilateral temporal region, independent and bisynchronous. This is suggestive of focal cortical neuronal dysfunction in above described location. May suggest underlying structural abnormality. Some sharply contoured waves were seen in either temporal region, may suggest underlying cortical irritability. Suggest prolonged EEG for further evaluation. Slightly excessive low voltage fast frequency beta activity was also present, suggestive of medication effect. Patient denies any history of tobacco use, alcohol, hypertension, diabetes. She does not use marijuana. She states that she does not eat. Patient has history of glaucoma. She works at midnight shifts. Review of Systems Constitutional: Reports weight loss, Denies chills, Denies fever Eyes: denies blurred vision, denies diplopia, denies discharge, denies pain, denies loss of vision Ears: deny: decreased hearing, ear discharge Ears, nose, mouth and throat: Reports headache (migraines), Denies sore throat, Denies vertigo Cardiovascular: Denies lightheadedness Respiratory: Denies cough, Denies excessive sputum Gastrointestinal: Denies abdominal pain, Denies diarrhea, Denies nausea, Denies vomiting Genitourinary: Denies urge incontinence, Denies urinary frequency Musculoskeletal: Denies low back pain, Denies myalgias, Denies neck pain Integumentary: Denies pruritus, Denies rash Neurological: Reports as per HPI Psychiatric: Reports anxiety, Reports depression Endocrine: Reports fatigue, Reports weight change Past Medical History Past Medical History: Hyperlipidemia, Thyroid Disorder Additional Past Medical History / Comment(s): hypothyroidism, migraines, glaucoma, recurrent ear infection, neuropathy History of Any Multi-Drug Resistant Organisms: MRSA Date of last positivie culture/infection: 2017 MDRO Source:: neck Past Surgical History: Section, Hysterectomy Past Psychological History: No Psychological Hx Reported Smoking Status: Former smoker Past Alcohol Use History: None Reported Past Drug Use History: None Reported Medications and Allergies Home Medications Medication Instructions Recorded Confirmed Type SUMAtriptan succinate [Imitrex] 50 mg PO DAILY PRN 05/15/14 11/28/23 History Levothyroxine Sodium [Synthroid] 75 mcg PO DAILY 12/13/16 11/28/23 History Cholecalciferol [Vitamin D3 (25 25 mcg PO DAILY 07/13/21 11/28/23 History Mcg = 1000 Iu)] ALPRAZolam [Xanax] 0.25 mg PO DAILY PRN 11/28/23 11/28/23 History HYDROcodone/APAP 5-325MG [Bland 1 tab PO DAILY PRN 11/28/23 11/28/23 History 5-325] Multivitamins, Thera [Multivitamin 1 tab PO DAILY 11/28/23 11/28/23 History (formulary)] Allergies Allergy/AdvReac Type Severity Reaction Status Date / Time cefuroxime axetil Allergy Unknown Verified 11/28/23 09:40 [From Ceftin] sulfamethoxazole Allergy Unknown Verified 11/28/23 09:40 [From Bactrim] trimethoprim [From Bactrim] Allergy Unknown Verified 11/28/23 09:40 Physical Examination - Vital Signs Vital Signs: Vital Signs Temp Pulse Resp BP Pulse Ox 11/28/23 06:00 93 14 102/70 96 11/28/23 05:00 92 14 115/81 96 11/28/23 04:00 91 15 113/76 98 11/28/23 03:21 85 15 128/81 98 11/28/23 02:14 97.2 F L 94 18 106/72 98 Intake and Output 11/27/23 11/28/23 11/28/23 22:59 06:59 14:59 Other: Weight 49.895 kg Patient is an elderly female, in no acute distress. Patient is alert awake. Patient states it is [facility] in [place] and states it is December and the year is . She knows name of the current president. Speech and language functions are normal. Patient appears slightly delirious. Patient can name and repeat very well. No aphasia or dysarthria. Attention, concentration and fund of knowledge is adequate. On cranial nerve examination, pupils are equal, round and reacting to light, visual sawyer are full on confrontation, with no neglect on double simultaneous stimulation. Extraocular muscles are intact with no nystagmus. Face is symmetric, tongue protrudes to the midline. Palatal elevation and sensation normal, hearing and shoulder shrug normal, facial sensation normal. Patient has a scalp laceration on the right posterior parietal scalp region with no active bleeding. On muscle strength testing, there is no pronator drift and the strength is normal in arms and legs distally and proximally. Deep tendon reflexes are symmetric 1+ and plantars downgoing. Sensory to touch is equal with no neglect on double simultaneous stimulation. Cerebellar function showed no ataxia for [id number]-[id number] testing. No dysdiadochokinesia. No ataxia for mypq-ey-[id number] testing on either side. Tone and bulk of muscles normal. Gait deferred.. On general examination, there is no carotid bruit or murmur, S1-S2 audible. Chest is clear on consultation. Abdomen is soft nontender. No organomegaly, bowel sounds present. Peripheral pulses are present. No peripheral edema. Results - Laboratory Findings CBC and BMP: 11/28/23 02:33 11/28/23 02:33 Abnormal Lab Findings: Abnormal Labs 11/28/23 11/28/23 11/28/23 02:33 02:33 02:33 WBC 14.6 H Neutrophils # 12.4 H APTT 21.8 L BUN 21 H Glucose 108 H Assessment and Plan Assessment: * Syncope versus seizure. Patient suffered from scalp laceration because of fall. No convulsive activity noted during the syncope. * History of recurrent syncopal/near syncopal spells, rule out vasovagal, orthostatic, arrhythmia versus seizure. * Concussion * History of abnormal EEG in the past. * Weight loss Plan: * EEG to evaluate for interictal epileptiform activity * MRI of the brain rule out any structural abnormality. * Orthostatics. Patient may need tilt table test. * Carotid Doppler * Cardiology has been consulted. Requested echo and orthostatics. * Telemetry monitoring. * Further management based upon above test results. * Neurology will follow. Thank you for the consult.
[2023-11-28] MEDS: HEPARIN SODIUM,PORCINE 5,000 UNIT/ML 1 ML VIAL SQ SCH (20:56)
[2023-11-28] MEDS: FAMOTIDINE 20 MG TAB PO SCH (20:56)
--- NOTE | 2023-11-28 22:24 | US ---
EXAMINATION TYPE: US carotid duplex BILAT DATE OF EXAM: 11/28/2023 COMPARISON: NONE CLINICAL INDICATION: Female, 63 years old with history of Recurrent syncope; syncope. Poor historian TECHNIQUE: Carotid duplex ultrasound examination. Indirect Doppler criteria was utilized. FINDINGS: EXAM MEASUREMENTS: RIGHT: Peak Systolic Velocity (PSV) cm/sec ----- Right CCA: 102 ----- Right ICA: 102 ----- Right ECA: 142 ICA/CCA ratio: 1.0 RIGHT: End Diastole cm/sec ----- Right CCA: 29.1 ----- Right ICA: 30.8 ----- Right ECA: 32.3 LEFT: Peak Systolic Velocity (PSV) cm/sec ----- Left CCA: 81.0 ----- Left ICA: 91.3 ----- Left ECA: 81.8 ICA/CCA ratio: 1.1 LEFT: End Diastole cm/sec ----- Left CCA: 27.5 ----- Left ICA: 32.0 ----- Left ECA: 14.2 VERTEBRALS (direction of flow): Right Vertebral: Antegrade Left Vertebral: Antegrade Rhythm: Normal [employer]ER NOTES: No plaque or elevated velocities seen IMPRESSION: Less than 50% stenosis bilateral carotid bifurcation. Criteria for Assigning % of Stenosis / Diameter reduction (Estimation based on the indirect measurements of the internal carotid artery velocities (ICA PSV). 1. Normal (no stenosis)=ICA PSV < 125 cm/s: ratio < 2.0: ICA EDV<40 cm/s. 2. Less than 50% stenosis=ICA PSV < 125 cm/s: ratio < 2.0: ICA EDV<40 cm/s. 3. 50 to 69% stenosis=ICA PSV of 125 to 230 cm/s: ration 2.0 ? 4.0: ICA EDV 40-100 cm/s. 4. Greater than 70% stenosis to near occlusion= ICA PSV > 230 cm/s: ratio > 4.0: ICA EDV > 100 cm/s. 5. Near occlusion= ICA PSV velocities may be low or undetectable: variable ratio and ICA EDV. 6. Total occlusion=unable to detect flow.
[2023-11-29] MEDS: ACETAMINOPHEN TAB 325 MG TAB PO PRN (03:39)
--- NOTE | 2023-11-29 09:26 | CA ---
Transthoracic Echo Report Name: Corinne Hobson Age: 63 Gender: F : 1960 Exam Date: 11/28/2023 13:41 Exam Location: [facility] Ht (in): 63 Wt (lb): 110 Ordering Physician: Razia Wilson Attending/Referring Phys: [id number], Katie Master Barber Criselda Hunter RDCS Procedure CPT: Indications: LVF Cardiac Hx: Technical Quality: Good Contrast 1: Total Dose (mL): Contrast 2: Total Dose (mL): MEASUREMENTS (Male / Female) Normal Values 2D ECHO LV Diastolic Diameter PLAX 3.2 cm 4.2 - 5.9 / 3.9 - 5.3 cm LV Systolic Diameter PLAX 2.0 cm IVS Diastolic Thickness 1.0 cm 0.6 - 1.0 / 0.6 - 0.9 cm LVPW Diastolic Thickness 0.9 cm 0.6 - 1.0 / 0.6 - 0.9 cm LV Relative Wall Thickness 0.6 RV Internal Dim ED PLAX 2.6 cm LA Systolic Diameter LX 2.6 cm 3.0 - 4.0 / 2.7 - 3.8 cm LV Diastolic Volume MOD 4C 75.0 cm??? LV Systolic Volume MOD 4C 33.2 cm??? LV Ejection Fraction MOD 4C 55.7 % LV Cardiac Index MOD 4C 2444.4 cm???/min???m??? LV Diastolic Length 4C 7.3 cm LV Systolic Length 4C 5.8 cm LV Diastolic Volume MOD 2C 62.8 cm??? LV Systolic Volume MOD 2C 31.2 cm??? LV Ejection Fraction MOD 2C 50.2 % LV Cardiac Index MOD 2C 1845.0 cm???/min???m??? LV Diastolic Length 2C 7.2 cm LV Systolic Length 2C 5.7 cm M-MODE Aortic Root Diameter MM 2.8 cm DOPPLER AV Peak Velocity 111.1 cm/s AV Peak Gradient 4.9 mmHg MV E' Velocity 7.0 cm/s TR Peak Velocity 211.5 cm/s TR Peak Gradient 17.9 mmHg Right Ventricular Systolic Press 28.0 mmHg FINDINGS Left Ventricle Left ventricular ejection fraction is estimated at 60-65 %. Small left ventricular cavity. Left ventricular wall thickness normal. No obvious regional wall motion abnormality. Right Ventricle Normal right ventricular size. Right ventricular systolic pressure within normal limits. Right Atrium Normal right atrial size. Left Atrium Normal left atrial size. Mitral Valve Structurally normal mitral valve. Mild mitral regurgitation. Aortic Valve Trileaflet aortic valve. No aortic valve stenosis or regurgitation. Tricuspid Valve Structurally normal tricuspid valve. Mild tricuspid regurgitation. Pulmonic Valve Pulmonic valve not well visualized. No pulmonic regurgitation. Pericardium No pericardial effusion. Aorta Normal size aortic root and proximal ascending aorta. CONCLUSIONS Left ventricular ejection fraction is estimated at 60-65 %. No obvious regional wall motion abnormality. Mild mitral regurgitation. Mild tricuspid regurgitation. No pericardial effusion. Previewed by: Dr Jd Le (Electronically Signed) Final Date: 29 November 2023 09:25
--- NOTE | 2023-11-29 11:11 | P.PN ---
Subjective Progress Note Date: 11/29/23 History of present illness: This is a 63-year-old female with past medical history of seasonal allergies, hypothyroidism. She was previously seen in the office by Dr. Neves in 2019. When she was evaluated in the office in 2019, it was for syncope thought to be consistent with vasovagal syncope and plan was for event monitor which she did not complete. She does not follow with a circular stuffer. We have been asked to evaluate the patient for syncope. 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 She is not sure if she had a loss of consciousness or not. She states she has not been eating and drinking well as she is sleeping during the day and working at night. She denies having any chest pain no shortness of breath no nausea no sweats or hot feeling. She denies history of smoking and no family history of cardiac issues. She states she has had weight loss but is unable to quantify it. Patient is seen today in the emergency center waiting for a bed on the observation unit. Neurology is also on consult. EKG sinus rhythm Chest x-ray: No acute process CT of the head and neck revealed no acute intracranial abnormality. Right parietal scalp swelling laceration. No acute findings in the cervical spine. WBC 14.6, hemoglobin 14, platelet count 383. INR 0.9. Electrolytes are normal. BUN 21 creatinine 0.64. Glucose 108. Troponin negative x 2. Magnesium 2.0. Liver function test are normal. Home cardiac medications: None, patient is on levothyroxine 75 mcg daily. Echocardiogram performed 06/14/2022 reveals EF of 55 to 60%. Mild mitral and tricuspid regurgitation. Progress note 11/29/2023 Patient was seen and examined at bedside this a.m. Patient reports that prior to her event of presyncope, she was dehydrated as she had a recent flu and had poor oral intake. Patient reported that her oral intake has improved and has been feeling better. No reported lightheadedness dizziness again. Her orthostatics were borderline positive. Physical examination: Gen: This is a 63-year-old female in no acute distress. VS: reviewed HEENT: Head is atraumatic, normocephalic. Pupils equal, round. Sclerae is anicteric. NECK: Supple. No JVD. LUNGS: Clear to auscultation. No wheezes or rhonchi. No intercostal retractions. HEART: Regular rate and rhythm. No murmur. ABDOMEN: Soft No tenderness. EXTREMITIES: No pedal edema. No calf tenderness. NEUROLOGICAL: Patient is awake, alert and oriented x3. Assessment: Possible syncopal episode, patient is unsure if there was loss of consciousness Borderline positive orthostatic vital signs. Sitting systolic BP 122, standing systolic BP 108 Syncope most likely related to dehydration, poor oral intake after recent flu infection. Weakness Concussion Weight loss Remote history of tobacco use Plan: Echocardiogram showed an EF of 55% with no major valvular abnormality. Syncope most likely related to dehydration, poor oral intake after recent flu infection. Would recommend a 14-day event monitor at the time of discharge which can be picked up from [facility] office. Patient is cleared from cardiovascular standpoint. Cardiology team will sign off Please evaluate patient's safety for fall, PT and OT evaluation and possible rehab evaluation prior to discharge as per Primary team TSH elevated at 9. Follow-up with PCP regarding this Objective - Vital Signs Vital signs: Vital Signs Temp 97.8 F 11/29/23 07:00 Pulse 117 H 11/29/23 07:00 Resp 16 11/29/23 07:00 BP 124/74 11/29/23 07:00 Pulse Ox 99 11/29/23 07:00 FiO2 Intake & Output 11/28/23 11/29/23 11/29/23 18:59 06:59 18:59 Intake Total 118 Balance 118 Intake: Oral 118 Other: Voiding Method Toilet # Voids 2 1 # Bowel Movements 1 - Labs CBC & Chem 7: 11/28/23 02:33 11/28/23 02:33 Labs: Abnormal Lab Results - Last 24 Hours (Table) 11/28/23 Range/Units 08:57 TSH 9.120 H (0.350-5.500) UIU/ML
--- NOTE | 2023-11-29 13:28 | P.PN ---
Subjective Progress Note Date: 11/29/23 CHIEF COMPLAINT: Syncope HISTORY OF PRESENT ILLNESS: Patient sitting up in bed comfortably. She denies a ny headache. Denies any nausea or vomiting. She has been up and ambulating. Patient reports that she had flu recently and had not been eating well. Afebrile. Patient seen by neurology. MRI of brain and EEG pending. Cardiology has cleared patient for discharge PHYSICAL EXAM: VITAL SIGNS: Reviewed. GENERAL: Well-developed in no acute distress. HEENT: head laceration scabbed ABDOMEN: Soft. Nondistended. Nontender. NEUROLOGIC: Alert and oriented. Cranial nerves II through XII grossly intact. ASSESSMENT: 1. Possible syncopal episode with trauma to the head 2. Right parietal scalp swelling/laceration 3. Possible concussion PLAN: -Consult PT OT -Continue supportive care -Continue neurology workup -Continue regular diet -GI prophylaxis Pepcid and DVT prophylaxis subcu heparin Physician Grinding Mill Operator note has been reviewed by physician. Signing provider agrees with the documented findings, assessment, and plan of care. Objective - Vital Signs Vital signs: Vital Signs Temp 97.8 F 11/29/23 07:00 Pulse 117 H 11/29/23 07:00 Resp 16 11/29/23 07:00 BP 124/74 11/29/23 07:00 Pulse Ox 99 11/29/23 07:00 FiO2 Intake & Output 11/28/23 11/29/23 11/29/23 18:59 06:59 18:59 Intake Total 118 Balance 118 Intake: Oral 118 Other: Voiding Method Toilet # Voids 2 1 # Bowel Movements 1 - Labs CBC & Chem 7: 11/28/23 02:33 11/28/23 02:33 Labs: Abnormal Lab Results - Last 24 Hours (Table) 11/28/23 Range/Units 08:57 TSH 9.120 H (0.350-5.500) UIU/ML
--- NOTE | 2023-11-29 14:39 | EEG ---
ELECTROENCEPHALOGRAM REPORT PREAMBLE: This is a 63-year-old female with syncope, fall and scalp laceration. This study is performed to rule out any seizure activity. EEG FINDINGS: This is a 21-channel digital EEG recorded with video component, utilizing 10/20 international system with referential and bipolar montages. Background consists of well developed, well regulated, moderate voltage activity in 11 hertz alpha. Background is posterior dominant and reactive to eye opening and closing. Photic driving response was seen with some flash frequencies. Some myogenic activity was seen in the bitemporal region. Some drowsiness was seen with appearance of bilaterally symmetric theta frequency rhythm. Deeper stages of sleep were not seen. No definitive focal or generalized epileptiform activity was seen. IMPRESSION: This is a normal awake and drowsy EEG. No focal, lateralized or epileptiform activity was seen. MMODL / IJN: [id number] /
--- NOTE | 2023-11-29 16:24 | P.PN ---
Subjective Progress Note Date: 11/29/23 63-year-old female came in after syncopal episode at work. Patient had a similar event in 2019 at the time patient was diagnosed with vasovagal syncope. Had an event monitor in the past had an echocardiogram which was within normal limits patient does not have any murmurs at this time patient states she has not been eating or drinking very well because of her night shifts and that is the reason she lost consciousness and she does not believe she has any other issues or problems. Patient does have leukocytosis patient dizzy did hit her head because of which CT of the head and neck was done which did not show any acute intracranial abnormality right partial scalp swelling and isolation was seen. Patient denies any symptoms of UTI or pneumonia or any other infection. Patient had any diarrhea patient is a thin built female with a 19 BMI blood pressure is low normal 102/70 troponins were negative. EKG is within normal notes without any acute ST-T wave changes patient does have mild leukocytosis patient does have history of hypothyroidism does take 75 mcg of levothyroxine echocardiogram in June 2022 showed normal ejection fraction without any significant valvular abnormalities. 11/29/2023 Patient evaluated today resting in bed. No acute complaints. Neurology following patient is unable to get an MRI completed today as the MRI machine is currently not working. She is also pending a prolonged EEG. Patient will be hydrated overnight will complete her neurological workup tomorrow when testing is available. Orthostatics were done today and negative. 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 Additionally her TSH was elevated although T4 was low we will recommend to increase levothyroxine to 100 mcg daily. Continue with IV hydration overnight with normal saline at 75 mls/hr. REVIEW OF SYSTEMS: CONSTITUTIONAL: No fever, no malaise, no fatigue. HEENT: No recent visual problems or hearing problems. Denied any sore throat. CARDIOVASCULAR: No chest pain, orthopnea, PND, no palpitations, PULMONARY: No shortness of breath, no cough, no hemoptysis. GASTROINTESTINAL: No diarrhea, no nausea, no vomiting, no abdominal pain. NEUROLOGICAL: No headaches, no weakness, no numbness. PHYSICAL EXAMINATION: GENERAL: The patient is alert and oriented x3, not in any acute distress. Thin built female HEENT: Pupils are round and equally reacting to light. EOMI. No scleral icterus. No conjunctival pallor. Normocephalic, atraumatic. No pharyngeal erythema. No thyromegaly. CARDIOVASCULAR: S1 and S2 present. No murmurs, rubs, or gallops. PULMONARY: Chest is clear to auscultation, no wheezing or crackles. ABDOMEN: Soft, nontender, nondistended, normoactive bowel sounds. No palpable organomegaly. MUSCULOSKELETAL: No joint swelling or deformity. EXTREMITIES: No cyanosis, clubbing, or pedal edema. NEUROLOGICAL: Gross neurological examination did not reveal any focal deficits. SKIN: No rashes. Assessment and plan -Syncope: Etiology may be mild dehydration patient will be hydrated gently and repeat BMP tomorrow. Echocardiogram completed and there are no significant valvular abnormalities. -Hypothyroidism with elevated TSH patients levothyroxine will be increased to 100 mcg daily. -History of migraine -Former smoker GI prophylaxis DVT prophylaxis: Subcu heparin Full Code Plan Neurology following and recommending MRI and EEG which are unable to be completed today. Testing will be completed tomorrow. Pending results patient is a discharge home in the next 24 hours. Physical therapy evaluated the patient and has cleared the patient to return home on discharge. Repeat a BMP In the AM. Continue IV fluids. The impression and plan of care has been dictated by Gretchen Zimmerman Nurse Practitioner as directed. Dr. Barbara MD I have performed a history and physical examination and medical decision making of this patient, discussed the same with the dictator, and agree with the dictators assessment and plan as written, documented as a scribe. Based on total visit time, I have performed more than 50% of this visit. Objective - Vital Signs Vital signs: Vital Signs Temp 97.8 F 11/29/23 07:00 Pulse 117 H 11/29/23 07:00 Resp 16 11/29/23 07:00 BP 124/74 11/29/23 07:00 Pulse Ox 99 11/29/23 07:00 FiO2 Intake & Output 11/28/23 11/29/23 11/29/23 18:59 06:59 18:59 Intake Total 118 Balance 118 Intake: Oral 118 Other: Voiding Method Toilet # Voids 2 1 # Bowel Movements 1 - Labs CBC & Chem 7: 11/28/23 02:33 11/28/23 02:33 Assessment and Plan Time with Patient: Less than 30
[2023-11-29] MEDS: SODIUM CHLORIDE 0.9% 1,000 ML IV SCH (20:46)
--- NOTE | 2023-11-29 20:54 | MR ---
EXAMINATION TYPE: MR brain wo/w con DATE OF EXAM: 11/29/2023 COMPARISON: CT Brain without contrast 08/15/2023 HISTORY: 63F. Confusion, syncopal episode TECHNIQUE: Multiplanar, multisequence images of the brain and brainstem is performed without and with IV contrast, utilizing 4.5 mL intravenous Gadavist contrast material. FINDINGS: Diffusion weighted images demonstrate no evidence of a recent infarct or other diffusion ab normality. There is no extra-axial fluid collection or significant white matter signal abnormality. The ventricular system and cisternal spaces are normal in size and appearance. The brain volume is age appropriate. Midline structures demonstrate normal morphology. The craniocervical junction appears within normal limits. Post contrast images demonstrate no abnormal enhancement. The dural venous sinuses appear pa tent. The visualized sinuses are clear and the globes are intact. IMPRESSION: No acute process.
[2023-11-30] MEDS: LORazepam 2 MG/ML INJ IV ONE (05:07)
[2023-11-30] MEDS ORDERED: HYDROcodone/APAP 5-325MG 1 EACH TAB PO PRN (05:32)
[2023-11-30 08:19] VITALS: BP 126/79; PULSE 90; RESP 18; TEMP 97.5
--- NOTE | 2023-11-30 10:09 | P.PN ---
Subjective Progress Note Date: 11/29/23 Patient was seen for a follow-up. Patient states she is feeling much better. Offers no new complaints. Patient is laying comfortably in the bed. Objective - Vital Signs Vital signs: Vital Signs Temp 97.8 F 11/29/23 07:00 Pulse 117 H 11/29/23 07:00 Resp 16 11/29/23 07:00 BP 124/74 11/29/23 07:00 Pulse Ox 99 11/29/23 07:00 FiO2 Intake & Output 11/28/23 11/29/23 11/29/23 18:59 06:59 18:59 Intake Total 118 Balance 118 Intake: Oral 118 Other: Voiding Method Toilet # Voids 2 1 # Bowel Movements 1 - Exam Examination remains unchanged. - Labs CBC & Chem 7: 11/28/23 02:33 11/28/23 02:33 Labs: Abnormal Lab Results - Last 24 Hours (Table) 11/28/23 Range/Units 08:57 TSH 9.120 H (0.350-5.500) UIU/ML Assessment and Plan Assessment: * Syncope versus seizure. Patient suffered from scalp laceration because of fall. No convulsive activity noted during the syncope. * History of recurrent syncopal/near syncopal spells, rule out vasovagal, orthostatic, arrhythmia versus seizure. * Concussion * History of abnormal EEG in the past. * Weight loss Plan: * Routine EEG was performed yesterday, which was normal awake and drowsy. No focal, lateralized or epileptiform activity was seen. * We will check prolonged EEG. * MRI of the brain pending. * Orthostatics checked was normal, supine blood pressure 124/74 with pulse of 117, sitting blood pressure 122/82, pulse 106, and standing blood pressure 108/75 with pulse of 95. Patient has orthostatics checked 3 times, and each time was negative. Patient may need tilt table test. * Carotid Doppler revealed less than 50% stenosis bilateral carotid bifurcation. Antegrade flow in both vertebral arteries. * Cardiology has been consulted. * 2D echo with left ventricular EF 60 to 65%. No obvious regional wall motion abnormality. Mild MR, mild TR. Left atrial size normal. * Telemetry monitoring. * Further management based upon above test results.
[2023-11-30 11:20] VITALS: BMI 19.5
--- NOTE | 2023-12-01 13:32 | P.PN ---
Subjective Progress Note Date: 11/30/23 Patient was seen for a follow-up. Patient states she is feeling much better. Offers no new complaints. Patient just completed 2.5 hours EEG. She came out of the shower. Objective - Vital Signs Vital signs: Vital Signs Temp 97.5 F L 11/30/23 07:00 Pulse 90 11/30/23 07:00 Resp 18 11/30/23 07:00 BP 126/79 11/30/23 07:00 Pulse Ox 98 11/30/23 07:00 FiO2 Intake & Output 11/29/23 11/30/23 11/30/23 18:59 06:59 18:59 Intake Total 118 360 Balance 118 360 Weight 49.895 kg 49.895 kg Intake: Oral 118 360 Other: Voiding Method Toilet # Voids 2 1 # Bowel Movements 1 - Exam Mental status, speech and language functions are normal. Muscle strength is normal. Gait is normal. - Labs CBC & Chem 7: 11/28/23 02:33 11/28/23 02:33 Assessment and Plan Assessment: * Syncope versus seizure. Patient suffered from scalp laceration because of fall. No convulsive activity noted during the syncope. * History of recurrent syncopal/near syncopal spells, rule out vasovagal, orthostatic, arrhythmia versus seizure. * Concussion * History of abnormal EEG in the past. * Weight loss Plan: * Routine EEG was normal awake and drowsy. No focal, lateralized or epileptiform activity was seen. * Prolonged EEG for 2.5 hours completed, results pending. * MRI of the brain revealed no acute process. I personally reviewed MRI agree with the findings. * Orthostatics checked was normal, supine blood pressure 124/74 with pulse of 117, sitting blood pressure 122/82, pulse 106, and standing blood pressure 108/75 with pulse of 95. Patient has orthostatics checked 3 times, and each time was negative. Patient may need tilt table test. * Carotid Doppler revealed less than 50% stenosis bilateral carotid bifurcation. Antegrade flow in both vertebral arteries. * 2D echo with left ventricular EF 60 to 65%. No obvious regional wall motion abnormality. Mild MR, mild TR. Left atrial size normal. * Cardiology on board. * Telemetry monitoring shows no arrhythmia. * Patient to be discharged home, and I will review prolonged EEG and call patient's home with the results.
--- NOTE | 2023-12-02 19:45 | P.DS ---
Providers Date of admission: 11/28/23 06:16 Attending physician: Hayes Jimenez Consults: 11/28/23 06:16 Consult Physician Routine Consulting Provider: Nahed Malone Consult Reason/Comments: concussion Do you want consulting provider notified?: Yes, Notify in am 11/28/23 08:21 Consult Physician Routine Consulting Provider: Raymond Day Consult Reason/Comments: medical management Do you want consulting provider notified?: Yes 11/29/23 08:14 Consult Physician Routine Consulting Provider: Carter Mosley Consult Reason/Comments: concussion Do you want consulting provider notified?: Already Contacted [facility] Course: Final Diagnosis -Syncope: Etiology may be mild dehydration. Echocardiogram completed and there are no significant valvular abnormalities. -Recent upper respiratory infection, viral. -Hypothyroidism with elevated TSH patients levothyroxine will be increased to 100 mcg daily. -History of migraine -Former smoker Discharge Disposition Patient stable for discharge home. Levothyroxine has been increased to 100 mcg daily. [facility] of an Event Monitor cardiology recommending 14 days. Patient to repeat BMP and CBC in 2 to 3 days. Recommending to follow up with PCP Dr. Wilson in 1 to 2 days. Hospital Course 63-year-old female came in after syncopal episode at work. Patient had a similar event in 2019 at the time patient was diagnosed with vasovagal syncope. Had an event monitor in the past had an echocardiogram which was within normal limits patient does not have any murmurs at this time patient states she has not been eating or drinking very well because of her night shifts and that is the reason she lost consciousness and she does not believe she has any other issues or problems. Patient does have leukocytosis patient dizzy did hit her head because of which CT of the head and neck was done which did not show any acute intracranial abnormality right partial scalp swelling and isolation was seen. Patient denies any symptoms of UTI or pneumonia or any other infection. Patient had any diarrhea patient is a thin built female with a 19 BMI blood pressure is low normal 102/70 troponins were negative. EKG is within normal notes without any acute ST-T wave changes patient does have mild leukocytosis patient does have history of hypothyroidism does take 75 mcg of levothyroxine echocardiogram in June 2022 showed normal ejection fraction without any significant valvular abnormalities. Admitted to [facility] with neurology consultation. Patient underwent EEG and also prolonged EEG with no reports of seizure like activity. Patient underwent MRI which reveals no acute findings. Patient did state she was recently sick with the "flu" the last week and had not been eating or drinking well and felt this may have been due to dehydration. She has been up ambulating and reports no dizziness or lightheadedness. TSH was elevated and levothyroxine has been increased. Please see medication reconciliation for a list of current medications. Thank you for allowing us to participate in the care of this patient. The impression and plan of care has been dictated by Gretchen Zimmerman Nurse Practitioner as directed. Dr. Barbara MD I have performed a history and physical examination and medical decision making of this patient, discussed the same with the dictator, and agree with the dictators assessment and plan as written, documented as a scribe. Based on total visit time, I have performed more than 50% of this visit. Patient Condition at Discharge: Stable Plan - Discharge Summary Discharge Rx Participant: No New Discharge Prescriptions: New Levothyroxine Sodium [Euthyrox] 100 mcg PO DAILY #30 tab Famotidine [Pepcid] 20 mg PO BID #60 tab Continue SUMAtriptan succinate [Imitrex] 50 mg PO DAILY PRN PRN Reason: Migraine Headache Multivitamins, Thera [Multivitamin (formulary)] 1 tab PO DAILY Cholecalciferol [Vitamin D3 (25 Mcg = 1000 Iu)] 25 mcg PO DAILY ALPRAZolam [Xanax] 0.25 mg PO DAILY PRN PRN Reason: Anxiety HYDROcodone/APAP 5-325MG [Macy 5-325] 1 tab PO DAILY PRN PRN Reason: Pain Discontinued Levothyroxine Sodium [Synthroid] 75 mcg PO DAILY Discharge Medication List SUMAtriptan succinate [Imitrex] 50 mg PO DAILY PRN 05/15/14 [History] Cholecalciferol [Vitamin D3 (25 Mcg = 1000 Iu)] 25 mcg PO DAILY 07/13/21 [History] ALPRAZolam [Xanax] 0.25 mg PO DAILY PRN 11/28/23 [History] HYDROcodone/APAP 5-325MG [Macy 5-325] 1 tab PO DAILY PRN 11/28/23 [History] Multivitamins, Thera [Multivitamin (formulary)] 1 tab PO DAILY 11/28/23 [H istory] Famotidine [Pepcid] 20 mg PO BID #60 tab 11/29/23 [Rx] Levothyroxine Sodium [Euthyrox] 100 mcg PO DAILY #30 tab 11/29/23 [Rx] Follow up Appointment(s)/Referral(s): Jd Le MD [Medical Doctor] - 12/25/23 2:30 pm Chevy Wilson DO [Primary Care Provider] - 1-2 days Irma Taveras MD [Medical Doctor] - 1 Week Ambulatory/Diagnostic Orders: Basic Metabolic Panel [LAB.AMB] Time Frame: 3 Days, Location: None Selected Complete Blood Count w/diff [LAB.AMB] Location: None Selected Patient Instructions/Handouts: Laceration (GEN), Syncope (DC), Concussion (DC), Head Injury (DC) Activity/Diet/Wound Care/Special Instructions: [facility] the [facility] of an Event Monitor cardiology recommending 14 days. Discharge Disposition: HOME SELF-CARE
== END 2023-11-30 15:40 | disposition home or self-care (01) ==
LOC: EC 02:12 → 6NMEDSUR 06:16
PROVIDERS: ADMIT Internal Medicine; ATTEND Internal Medicine
DX: R55 Syncope and collapse (principal); S01.01XA Laceration without foreign body of scalp, initial encounter; S06.0X0A Concussion without loss of consciousness, initial encounter; W19.XXXA Unspecified fall, initial encounter; R53.1 Weakness; E78.5 Hyperlipidemia, unspecified; E03.9 Hypothyroidism, unspecified; G62.9 Polyneuropathy, unspecified; G43.909 Migraine, unspecified, not intractable, without status migrainosus; R63.4 Abnormal weight loss; Z68.1 Body mass index [BMI] 19.9 or less, adult; Z86.16 Personal history of COVID-19; Z87.891 Personal history of nicotine dependence; Z79.890 Hormone replacement therapy; Z88.1 Allergy status to other antibiotic agents; Z88.2 Allergy status to sulfonamides; Z11.52 Encounter for screening for COVID-19
CPT/HCPCS: 96372 ×3; 96360; 99285; 36415; 95816; 95713; 95700; 93005; 93306; 97161; 97165; 84439; 80053; 84443; 83735; 84484; 85025; 85610; 85730; 87636; 71046; 93880; 72125; 70450; 70553; G0378 ×3; G0390; J1644 ×3; A9585

== ENCOUNTER 2024-09-03 20:43 | Inpatient (IN) | payer BC, MEDICARE ==
--- NOTE | 2024-09-03 21:25 | ED ---
General Adult HPI - General Chief complaint: Recheck/Abnormal Lab/Rx Stated complaint: HTN Time Seen by Provider: 09/03/24 21:00 Source: EMS Mode of arrival: EMS - History of Present Illness Initial comments: This patient is a 74-year-old woman who arrives to have evaluation for generalized weakness. Patient reports that she lives alone and family came to see her and then they ended up having her sent here. She does not specifically know why she is here. She denies pain. No dyspnea. -: unknown Severity scale (1-10): 0 Consistency: constant Improves with: none Worsens with: none Associated Symptoms: weakness - Related Data Home Medications Medication Instructions Recorded Confirmed SUMAtriptan succinate [Imitrex] 50 mg PO DAILY PRN 05/15/14 09/04/24 Levothyroxine Sodium [Synthroid] 88 mcg PO DAILY 09/04/24 09/04/24 Previous Rx's Medication Instructions Recorded Acetaminophen Tab [Tylenol] 650 mg PO Q6HR PRN tab 09/17/24 Cholecalciferol [Vitamin D3 (25 25 mcg PO DAILY tab 09/17/24 Mcg = 1000 Iu)] Famotidine [Pepcid] 20 mg PO DAILY tab 09/17/24 Ferrous Sulfate [Iron (65 MG 325 mg PO W/LUNCH tab 09/17/24 Elemental)] Gabapentin [Neurontin] 100 mg PO BID cap 09/17/24 Mirtazapine [Remeron] 7.5 mg PO HS tab 09/17/24 Allergies Allergy/AdvReac Type Severity Reaction Status Date / Time cefuroxime axetil Allergy Unknown Verified 09/04/24 08:52 [From Ceftin] sulfamethoxazole Allergy Unknown Verified 09/04/24 08:52 [From Bactrim] trimethoprim [From Bactrim] Allergy Unknown Verified 09/04/24 08:52 Review of Systems ROS Statement: Those systems with pertinent positive or pertinent negative responses have been documented in the HPI. ROS Other: All systems not noted in ROS Statement are negative. Constitutional: Reports: weakness. Denies: fever Eyes: Denies: vision change Respiratory: Denies: cough, dyspnea Cardiovascular: Denies: chest pain Gastrointestinal: Denies: abdominal pain, vomiting, diarrhea Genitourinary: Denies: dysuria Musculoskeletal: Denies: back pain Skin: Denies: rash Neurological: Denies: headache, weakness Past Medical History Past Medical History: Hyperlipidemia, Thyroid Disorder Additional Past Medical History / Comment(s): hypothyroidism, migraines, glaucoma, recurrent ear infection, neuropathy History of Any Multi-Drug Resistant Organisms: MRSA Date of last positivie culture/infection: 2017 MDRO Source:: neck Past Surgical History: Section, Hysterectomy Past Psychological History: No Psychological Hx Reported Smoking Status: Former smoker Past Alcohol Use History: None Reported Past Drug Use History: None Reported General Exam General appearance: alert, in no apparent distress Head exam: Present: atraumatic, normocephalic Eye exam: Present: normal appearance. Absent: scleral icterus, conjunctival injection Neck exam: Present: normal inspection, full ROM Respiratory exam: Present: normal lung sounds bilaterally. Absent: respiratory distress, wheezes, rales, rhonchi, stridor, accessory muscle use Cardiovascular Exam: Present: normal rhythm, tachycardia, normal heart sounds. Absent: systolic murmur, diastolic murmur, rubs, gallop GI/Abdominal exam: Present: soft. Absent: tenderness, guarding, rebound, mass, pulsatile mass, hernia Extremities exam: Present: normal inspection, normal capillary refill. Absent: pedal edema, calf tenderness Back exam: Present: normal inspection. Absent: vertebral tenderness Neurological exam: Present: alert. Absent: motor sensory deficit Skin exam: Present: warm, dry, intact, normal color. Absent: rash Course Vital Signs 09/03/24 09/04/24 09/04/24 20:44 01:15 02:02 Temperature 98.2 F Pulse Rate 122 H 112 H 105 H Respiratory 18 15 18 Rate Blood Pressure 129/85 134/72 120/70 O2 Sat by Pulse 98 98 Oximetry 09/04/24 09/04/24 03:00 06:00 Temperature Pulse Rate 104 H 10 L Respiratory 11 L 18 Rate Blood Pressure 118/75 116/70 O2 Sat by Pulse 99 98 Oximetry EKG Findings - EKG Results: EKG: interpreted by ERMD, sinus rhythm, normal axis EKG shows: tachycardia (Rate 122) - Blocks, [place], Hypertrophy, ST Abn: AV and intraventricular conduction: right bundle branch block (fixed/intermit tent, complete/incomplete) (Complete) Repolarization changes or abnormalities: nonspecific abnormality, ST segment, and/or T wave Medical Decision Making - Medical Decision Making The patient had chest x-ray that I interpreted as negative for acute infiltrate, pneumothorax, congestive heart failure Was pt. sent in by a medical professional or institution (ANGELA Lawton, LABOR SUPERVISOR, urgent care, hospital, or correction...) When possible be specific @ -[No] Did you speak to anyone other than the patient for history (EMS, parent, family, police, friend...)? What history was obtained from this source @ -[No] Did you review nursing and triage notes (agree or disagree)? Why? @ -[I reviewed and agree with nursing and triage notes] Were old charts reviewed (outside hosp., previous admission, EMS record, old EKG, old radiological studies, urgent care reports/EKG's, correction records)? Report findings @ -[No old charts were reviewed] Differential Diagnosis (chest pain, altered mental status, abdominal pain women, abdominal pain men, vaginal bleeding, weakness, fever, dyspnea, syncope, headache, dizziness, GI bleed, back pain, seizure, CVA, palpatations, mental health, musculoskeletal)? @ -[Differential Altered Mental Status: Hypoglycemia, DKA, hypercapnia, ETOH, overdose, CO poisoning, trauma, myxedema coma, HTN encephalopathy, infection, encephalitis, psychosis, intercranial hemorrhage, hepatic encephalopathy, meningitis, CVA, this is not meant to be an all-inclusive list EKG interpreted by me (3pts min.). @ -[I interpreted as above] X-rays interpreted by me (1pt min.). @ -[I interpreted as above CT interpreted by me (1pt min.). @ -[None done] U/S interpreted by me (1pt. min.). @ -[None done] What testing was considered but not performed or refused? (CT, X-rays, U/S, labs)? Why? @ -[None] What meds were considered but not given or refused? Why? @ -[None] Did you discuss the management of the patient with other professionals (professionals i.e. ANGELA Lawton, LABOR SUPERVISOR, lab, RT, psych nurse, social service assistant, streetcar motorman, teacher, annual giving officer, case investigator)? Give summary @ -[Case discussed with admitting physician and treatment recommendations incorporated Was smoking cessation discussed for >3mins.? @ -[No] Was critical care preformed (if so, how long)? @ -[No] Were there social determinants of health that impacted care today? How? (Homelessness, low income, unemployed, alcoholism, drug addiction, transportation, low edu. Level, literacy, decrease access to med. care, skilled nursing, rehab)? @ -[No] Was there de-escalation of care discussed even if they declined (Discuss DNR or withdrawal of care, Hospice)? DNR status @ -[No] What co-morbidities impacted this encounter? (DM, HTN, Smoking, COPD, CAD, Cancer, CVA, ARF, Chemo, Hep., AIDS, mental health diagnosis, sleep apnea, morbid obesity)? @ -[None] Was patient admitted / discharged? Hospital course, mention meds given and route, prescriptions, significant lab abnormalities, going to OR and other pertinent info. @ -[Patient is a 64-year-old woman who is in due to family concerns about altered mental status. The patient is denying complaints. She does appear to have some degree of dehydration and will be admitted to have further hydration and medical evaluation. Undiagnosed new problem with uncertain prognosis? @ -[No] Drug Therapy requiring intensive monitoring for toxicity (Heparin, Nitro, Insulin, Cardizem)? @ -[No] Were any procedures done? @ -[No] Diagnosis/symptom? @ -[Acute altered mental status Acute dehydration Acute, or Chronic, or Acute on Chronic? @ -[Acute Uncomplicated (without systemic symptoms) or Complicated (systemic symptoms)? @ -[Uncomplicated Side effects of treatment? @ -[No] Exacerbation, Progression, or Severe Exacerbation? @ -[No] Poses a threat to life or bodily function? How? (Chest pain, [place], [place], pneumonia, PE, COPD, DKA, ARF, appy, cholecystitis, CVA, Diverticulitis, Homicidal, [place] icidal, threat to staff... and all critical care pts) @ -[No] All treatments are based on ideal body weight as in ED triage - Lab Data Result diagrams: 09/15/24 02:57 09/15/24 02:57 Lab Results 09/03/24 09/03/24 09/03/24 Range/Units 21:31 21:31 21:31 WBC 13.1 H (3.8-10.6) k/uL RBC 5.85 H (3.80-5.40) m/uL Hgb 16.6 H (11.4-16.0) gm/dL Hct 51.0 H (34.0-46.0) % MCV 87.1 (80.0-100.0) fL MCH 28.3 (25.0-35.0) pg MCHC 32.5 (31.0-37.0) g/dL RDW 12.3 (11.5-15.5) % Plt Count 521 H (150-450) k/uL MPV 7.2 Neutrophils % 86 % Lymphocytes % 7 % Monocytes % 5 % Eosinophils % 1 % Basophils % 0 % Neutrophils # 11.2 H (1.3-7.7) k/uL Lymphocytes # 0.9 L (1.0-4.8) k/uL Monocytes # 0.7 (0-1.0) k/uL Eosinophils # 0.1 (0-0.7) k/uL Basophils # 0.1 (0-0.2) k/uL PT 12.1 (10.0-12.5) sec INR 1.1 (<1.2) APTT 22.3 (22.0-30.0) sec Sodium 145 (137-145) mmol/L Potassium 4.5 (3.5-5.1) mmol/L Chloride 110 H (98-107) mmol/L Carbon Dioxide 19 L (22-30) mmol/L Anion Gap 16 mmol/L BUN 61 H (7-17) mg/dL Creatinine 1.44 H (0.52-1.04) mg/dL Est GFR (CKD-EPI)AfAm 44 (>60 ml/min/1.73 sqM) Est GFR (CKD-EPI)NonAf 38 (>60 ml/min/1.73 sqM) Glucose 136 H (74-99) mg/dL Lactic Ac Sepsis Rflx Plasma Lactic Acid Kenny (0.7-2.0) mmol/L Calcium 10.4 H (8.4-10.2) mg/dL Magnesium 2.7 H (1.6-2.3) mg/dL Total Bilirubin 1.0 (0.2-1.3) mg/dL AST 59 H (14-36) U/L ALT 40 H (4-34) U/L Alkaline Phosphatase 116 (38-126) U/L Troponin I (0.000-0.034) ng/mL Total Protein 7.9 (6.3-8.2) g/dL Albumin 5.0 (3.5-5.0) g/dL TSH 6.190 H (0.465-4.680) mIU/L Urine Color Urine Appearance (Clear) Urine pH (5.0-8.0) Ur Specific Amanda (1.001-1.035) Urine Protein (Negative) Urine Glucose (UA) (Negative) Urine Ketones (Negative) Urine Blood (Negative) Urine Nitrite (Negative) Urine Bilirubin (Negative) Urine Urobilinogen (<2.0) mg/dL Ur Leukocyte Esterase (Negative) Urine RBC (0-5) /hpf Urine WBC (0-5) /hpf Hyaline Casts (0-2) /lpf Urine Mucus (None) /hpf Serum Alcohol <10 mg/dL 09/03/24 09/03/24 09/03/24 Range/Units 21:31 21:31 21:58 WBC (3.8-10.6) k/uL RBC (3.80-5.40) m/uL Hgb (11.4-16.0) gm/dL Hct (34.0-46.0) % MCV (80.0-100.0) fL MCH (25.0-35.0) pg MCHC (31.0-37.0) g/dL RDW (11.5-15.5) % Plt Count (150-450) k/uL MPV Neutrophils % % Lymphocytes % % Monocytes % % Eosinophils % % Basophils % % Neutrophils # (1.3-7.7) k/uL Lymphocytes # (1.0-4.8) k/uL Monocytes # (0-1.0) k/uL Eosinophils # (0-0.7) k/uL Basophils # (0-0.2) k/uL PT (10.0-12.5) sec INR (<1.2) APTT (22.0-30.0) sec Sodium (137-145) mmol/L Potassium (3.5-5.1) mmol/L Chloride (98-107) mmol/L Carbon Dioxide (22-30) mmol/L Anion Gap mmol/L BUN (7-17) mg/dL Creatinine (0.52-1.04) mg/dL Est GFR (CKD-EPI)AfAm (>60 ml/min/1.73 sqM) Est GFR (CKD-EPI)NonAf (>60 ml/min/1.73 sqM) Glucose (74-99) mg/dL Lactic Ac Sepsis Rflx Y Plasma Lactic Acid Kenny 3.6 H* (0.7-2.0) mmol/L Calcium (8.4-10.2) mg/dL Magnesium (1.6-2.3) mg/dL Total Bilirubin (0.2-1.3) mg/dL AST (14-36) U/L ALT (4-34) U/L Alkaline Phosphatase (38-126) U/L Troponin I <0.012 (0.000-0.034) ng/mL Total Protein (6.3-8.2) g/dL Albumin (3.5-5.0) g/dL TSH (0.465-4.680) mIU/L Urine Color Urine Appearance (Clear) Urine pH (5.0-8.0) Ur Specific Amanda (1.001-1.035) Urine Protein (Negative) Urine Glucose (UA) (Negative) Urine Ketones (Negative) Urine Blood (Negative) Urine Nitrite (Negative) Urine Bilirubin (Negative) Urine Urobilinogen (<2.0) mg/dL Ur Leukocyte Esterase (Negative) Urine RBC (0-5) /hpf Urine WBC (0-5) /hpf Hyaline Casts (0-2) /lpf Urine Mucus (None) /hpf Serum Alcohol mg/dL 09/04/24 Range/Units 01:40 WBC (3.8-10.6) k/uL RBC (3.80-5.40) m/uL Hgb (11.4-16.0) gm/dL Hct (34.0-46.0) % MCV (80.0-100.0) fL MCH (25.0-35.0) pg MCHC (31.0-37.0) g/dL RDW (11.5-15.5) % Plt Count (150-450) k/uL MPV Neutrophils % % Lymphocytes % % Monocytes % % Eosinophils % % Basophils % % Neutrophils # (1.3-7.7) k/uL Lymphocytes # (1.0-4.8) k/uL Monocytes # (0-1.0) k/uL Eosinophils # (0-0.7) k/uL Basophils # (0-0.2) k/uL PT (10.0-12.5) sec INR (<1.2) APTT (22.0-30.0) sec Sodium (137-145) mmol/L Potassium (3.5-5.1) mmol/L Chloride (98-107) mmol/L Carbon Dioxide (22-30) mmol/L Anion Gap mmol/L BUN (7-17) mg/dL Creatinine (0.52-1.04) mg/dL Est GFR (CKD-EPI)AfAm (>60 ml/min/1.73 sqM) Est GFR (CKD-EPI)NonAf (>60 ml/min/1.73 sqM) Glucose (74-99) mg/dL Lactic Ac Sepsis Rflx Plasma Lactic Acid Kenny (0.7-2.0) mmol/L Calcium (8.4-10.2) mg/dL Magnesium (1.6-2.3) mg/dL Total Bilirubin (0.2-1.3) mg/dL AST (14-36) U/L ALT (4-34) U/L Alkaline Phosphatase (38-126) U/L Troponin I (0.000-0.034) ng/mL Total Protein (6.3-8.2) g/dL Albumin (3.5-5.0) g/dL TSH (0.465-4.680) mIU/L Urine Color Yellow Urine Appearance Cloudy H (Clear) Urine pH 5.0 (5.0-8.0) Ur Specific Amanda 1.021 (1.001-1.035) Urine Protein Trace H (Negative) Urine Glucose (UA) Negative (Negative) Urine Ketones Trace H (Negative) Urine Blood Negative (Negative) Urine Nitrite Negative (Negative) Urine Bilirubin Negative (Negative) Urine Urobilinogen <2.0 (<2.0) mg/dL Ur Leukocyte Esterase Negative (Negative) Urine RBC <1 (0-5) /hpf Urine WBC 1 (0-5) /hpf Hyaline Casts 19 H (0-2) /lpf Urine Mucus Rare H (None) /hpf Serum Alcohol mg/dL Disposition Clinical Impression: Altered mental status, Acute kidney injury Disposition: ADMITTED IP TO THIS HOSP Condition: Poor Is patient prescribed a controlled substance at d/c from ED?: No
[2024-09-03 21:43] LABS: Basophils # (A) 0.1 k/uL (0-0.2); Basophils % (A) 0 %; Eosinophils # (A) 0.1 k/uL (0-0.7); Eosinophils % (A) 1 %; HGB 16.6 gm/dL (11.4-16.0); Lymphocytes # (A) 0.9 k/uL (1.0-4.8); Lymphocytes % (A) 7 %; MCH 28.3 pg (25.0-35.0); MCHC 32.5 g/dL (31.0-37.0); MCV 87.1 fL (80.0-100.0); Mean Platelet Volume 7.2; Monocytes # (A) 0.7 k/uL (0-1.0); Monocytes % (A) 5 %; Neutrophils # (A) 11.2 k/uL (1.3-7.7); Neutrophils % (A) 86 %; Platelet Count 521 k/uL (150-450); RBC 5.85 m/uL (3.80-5.40); RDW 12.3 % (11.5-15.5); WBC 13.1 k/uL (3.8-10.6)
[2024-09-03 21:54] LABS: ALT 40 U/L (4-34); AST 59 U/L (14-36); African American GFR (CKD) 44 (>60 ml/min/1.73 sqM); Alcohol <10 mg/dL; Alkaline Phosphatase 116 U/L (38-126); Anion Gap 16 mmol/L; Blood Urea Nitrogen 61 mg/dL (7-17); Calcium 10.4 mg/dL (8.4-10.2); Carbon Dioxide 19 mmol/L (22-30); Chloride 110 mmol/L (98-107); Glucose 136 mg/dL (74-99); Magnesium 2.7 mg/dL (1.6-2.3); Non-African American GFR(CKD) 38 (>60 ml/min/1.73 sqM); Potassium 4.5 mmol/L (3.5-5.1); Sodium 145 mmol/L (137-145); Total Protein 7.9 g/dL (6.3-8.2)
[2024-09-03 21:57] LABS: INR 1.1 (<1.2); Partial Thromboplastin Time 22.3 sec (22.0-30.0); Prothrombin Time 12.1 sec (10.0-12.5)
[2024-09-03] MEDS: SODIUM CHLORIDE 0.9% 1,000 ML IV ONE (23:41)
[2024-09-03] MEDS: ALPRAZolam 0.25 MG TAB PO STA (23:41)
--- NOTE | 2024-09-03 23:47 | XR ---
EXAM: XR Chest, 2 Views CLINICAL HISTORY: ITS.REASON XR Reason: Weakness TECHNIQUE: Frontal and lateral views of the chest. COMPARISON: No relevant prior studies available. FINDINGS: Lungs: Unremarkable. No consolidation. Pleural space: Unremarkable. No pneumothorax. Heart: Unremarkable. No cardiomegaly. Mediastinum: Unremarkable. Normal mediastinal contour. Bones/joints: Unremarkable. No acute fracture. IMPRESSION: Normal chest x-rays.
[2024-09-04] MEDS: SODIUM CHLORIDE 0.9% 500 ML 500 ML IV STA (00:50)
[2024-09-04] MEDS: SODIUM CHLORIDE 0.9% 1,000 ML IV STA (01:12)
[2024-09-04 02:00] LABS: Appearance,Urine Cloudy (Clear); Bilirubin,Urine Negative (Negative); Blood,Urine Negative (Negative); Color,Urine Yellow; Glucose,Urine (UA) Negative (Negative); Hyaline Casts,Urine 19 /lpf (0-2); Ketones,Urine Trace (Negative); Leukocyte Esterase,Urine Negative (Negative); Mucus,Urine Rare /hpf; Nitrite,Urine Negative (Negative); Protein,Urine Trace (Negative); RBC,Urine <1 /hpf (0-5); Specific Gravity,Urine 1.021 (1.001-1.035); Urobilinogen,Urine <2.0 mg/dL (<2.0); WBC,Urine 1 /hpf (0-5)
[2024-09-04] MEDS ORDERED: NALOXONE 0.4 MG/ML 1 ML VIAL IV PRN (02:14)
[2024-09-04] MEDS ORDERED: ALPRAZolam 0.25 MG TAB PO PRN (02:24)
[2024-09-04] MEDS ORDERED: HYDROcodone/APAP 5-325MG 1 EACH TAB PO PRN (02:24)
[2024-09-04 03:27] LABS: Influenza A Not Detected (Not Detectd); Influenza B Not Detected (Not Detectd); RSV Not Detected (Not Detectd)
[2024-09-04] MEDS: LEVOTHYROXINE 100 MCG TAB PO SCH (06:41)
[2024-09-04] MEDS: CHOLECALCIFEROL 25 MCG (1000 IU) TABLET PO SCH (09:33)
[2024-09-04] MEDS: FAMOTIDINE 20 MG TAB PO SCH (09:33)
--- NOTE | 2024-09-04 16:15 | P.HPIM ---
History of Present Illness H&P Date: 09/04/24 History of present illness; Patient is a 74-year-old female who presents with fall. Patient states while at home she had tripped over her dog. She states that she has been in bed for the last 1 week. She states she has had poor appetite and low dietary intake. She is unclear as to why she has stayed in bed, but states that she has no family visiting her regularly. Family in room states that she has living situation with feces throughout home. Patient has no stated complaints at this time. Patient reports absence of fever, chills, chest pain, palpitations, diaphoresis, dyspnea, cough, nausea, vomiting, constipation, diarrhea, abdominal pain, weakness, dizziness, headache, and dysuria. Labs in ER significant for WBC 13.1, hemoglobin 16.6, platelets 521, sodium 145, potassium 4.5, bicarb 19, BUN 61, creatinine 1.44, glucose of 136, lactic acid 3.6 => 1.2 troponin negative, TSH 6.1, UA significant for cloudy appearance, trace protein, trace ketones, hyaline casts. EKG done in the ER independently interpreted showed sinus tachycardia heart rate of 122, no ST segment elevation or depression seen, no T-wave inversions seen. Chest x-ray done independently interpreted in the ER showed no acute cardiopulmonary findings. Spoke with the ER physician, patient admission was accepted by internal medicine service for treatment. REVIEW OF SYSTEMS: Pertinent positives and negatives noted in HPI. PHYSICAL EXAMINATION: Vitals reviewed GENERAL: No acute distress. Thin appearing. HEENT: Pupils are round and equally reacting to light. EOMI. No scleral icterus. Normocephalic, atraumatic. No pharyngeal erythema. No thyromegaly. CARDIOVASCULAR: S1 and S2 present. No murmurs, rubs, or gallops. PULMONARY: Chest is clear to auscultation, no wheezing, rhonchi, or crackles. ABDOMEN: Soft, nontender, nondistended, normoactive bowel sounds. No palpable organomegaly. MUSCULOSKELETAL: No apparent joint swelling and deformities. EXTREMITIES: No apparent cyanosis, clubbing, or pedal edema. NEUROLOGICAL: The patient is alert and oriented x3, Gross neurological examination did not reveal any focal deficits. SKIN: No apparent rashes. Assessment and plan Patient is a 74-year-old female who presents with generalized weakness. #Syncope with generalized weakness #Elevated D-dimer with tachycardia -Chest x-ray with no acute findings -CK pending CT chest angiogram pending Bilateral lower extremity Doppler ultrasound pending Will begin heparin if pulmonary embolism found - consult OT, and PT #Failure to thrive, BMI 16.8 #Starvation ketosis #MDD Psychiatry consulted #ZORA due to dehydration Given 2.5 L normal saline Continue to monitor BMP #Leukocytosis, likely reactive Given Rocephin Chest x-ray and UA negative for infectious source Blood culture, procalcitonin pending Monitor CBC #Hypothyroidism TSH 6.19 Resume Synthroid F: P.o. E: Replete as needed N: Heart healthy DVT ppx: Subq Lovenox 40 meq daily Code status: Full code Anticipated discharge place: Pending clinical course Anticipated discharge time: Pending clinical course Dictation was produced using [employer] dictation software. Please excuse any grammatical, word or spelling errors. Attestation I have seen and examined this patient with my resident , discussed the same with the resident/GEORGINA, and agree with the dictator's assessment and plan as written Dr. Ilir berg Past Medical History Past Medical History: Hyperlipidemia, Thyroid Disorder Additional Past Medical History / Comment(s): hypothyroidism, migraines, glaucoma, recurrent ear infection, neuropathy History of Any Multi-Drug Resistant Organisms: MRSA Date of last positivie culture/infection: 2017 MDRO Source:: neck Past Surgical History: Section, Hysterectomy Past Psychological History: No Psychological Hx Reported Smoking Status: Former smoker Past Alcohol Use History: None Reported Past Drug Use History: None Reported Medications and Allergies Home Medications Medication Instructions Recorded Confirmed Type SUMAtriptan succinate [Imitrex] 50 mg PO DAILY PRN 05/15/14 09/04/24 History Levothyroxine Sodium [Synthroid] 88 mcg PO DAILY 09/04/24 09/04/24 History Allergies Allergy/AdvReac Type Severity Reaction Status Date / Time cefuroxime axetil Allergy Unknown Verified 09/04/24 08:52 [From Ceftin] sulfamethoxazole Allergy Unknown Verified 09/04/24 08:52 [From Bactrim] trimethoprim [From Bactrim] Allergy Unknown Verified 09/04/24 08:52 Physical Exam Vitals: Vital Signs Temp Pulse Resp BP Pulse Ox 09/04/24 06:00 10 L 18 116/70 98 09/04/24 03:00 104 H 11 L 118/75 99 09/04/24 02:02 105 H 18 120/70 98 09/04/24 01:15 112 H 15 134/72 98 09/03/24 20:44 98.2 F 122 H 18 129/85 Intake and Output 09/03/24 09/04/24 09/04/24 22:59 06:59 14:59 Output Total 500 Balance -500 Output: Urine 500 Straight 500 Other: Weight 52.163 kg 42.9 kg Results CBC & Chem 7: 09/05/24 03:42 09/05/24 03:42 Labs: Abnormal Lab Results - Last 24 Hours (Table) 09/03/24 09/03/24 09/03/24 Range/Units 21:31 21:31 21:31 WBC 13.1 H (3.8-10.6) k/uL RBC 5.85 H (3.80-5.40) m/uL Hgb 16.6 H (11.4-16.0) gm/dL Hct 51.0 H (34.0-46.0) % Plt Count 521 H (150-450) k/uL Neutrophils # 11.2 H (1.3-7.7) k/uL Lymphocytes # 0.9 L (1.0-4.8) k/uL Chloride 110 H (98-107) mmol/L Carbon Dioxide 19 L (22-30) mmol/L BUN 61 H (7-17) mg/dL Creatinine 1.44 H (0.52-1.04) mg/dL Glucose 136 H (74-99) mg/dL Plasma Lactic Acid Kenny 3.6 H* (0.7-2.0) mmol/L Calcium 10.4 H (8.4-10.2) mg/dL Magnesium 2.7 H (1.6-2.3) mg/dL AST 59 H (14-36) U/L ALT 40 H (4-34) U/L TSH 6.190 H (0.465-4.680) mIU/L Urine Appearance (Clear) Urine Protein (Negative) Urine Ketones (Negative) Hyaline Casts (0-2) /lpf Urine Mucus (None) /hpf 09/04/24 Range/Units 01:40 WBC (3.8-10.6) k/uL RBC (3.80-5.40) m/uL Hgb (11.4-16.0) gm/dL Hct (34.0-46.0) % Plt Count (150-450) k/uL Neutrophils # (1.3-7.7) k/uL Lymphocytes # (1.0-4.8) k/uL Chloride (98-107) mmol/L Carbon Dioxide (22-30) mmol/L BUN (7-17) mg/dL Creatinine (0.52-1.04) mg/dL Glucose (74-99) mg/dL Plasma Lactic Acid Kenny (0.7-2.0) mmol/L Calcium (8.4-10.2) mg/dL Magnesium (1.6-2.3) mg/dL AST (14-36) U/L ALT (4-34) U/L TSH (0.465-4.680) mIU/L Urine Appearance Cloudy H (Clear) Urine Protein Trace H (Negative) Urine Ketones Trace H (Negative) Hyaline Casts 19 H (0-2) /lpf Urine Mucus Rare H (None) /hpf
--- NOTE | 2024-09-04 16:47 | US ---
EXAMINATION TYPE: US venous doppler duplex LE BI DATE OF EXAM: 09/04/2024 4:02 PM COMPARISON: NONE CLINICAL INDICATION: Female, 64 years old with history of elevated d-dimer; Patient AMS, Pain TECHNIQUE: The lower extremity deep venous system is examined utilizing real time linear array sonog paulette with graded compression, color doppler sonography, and spectral doppler. SIDE PERFORMED: Bilateral FINDINGS: VESSELS IMAGED: Common Femoral Vein Deep Femoral Vein Greater Saphenous Vein * Femoral Vein Popliteal Vein Small Saphenous Vein * Proximal Calf Veins (* superficial vessels) Right Leg: Negative for DVT, Color Doppler imaging shows patency of the vessels. Spectral waveforms are within normal limits. Left Leg: Negative for DVT, Color Doppler imaging shows patency of the vessels. Spectral waveforms a re within normal limits. IMPRESSION: No ultrasound evidence for deep venous thrombosis. [facility], , 09/04/2024 4:44 PM
--- NOTE | 2024-09-04 17:32 | CT ---
EXAMINATION TYPE: CT chest angio for PE DATE OF EXAM: 09/04/2024 5:22 PM COMPARISON: Chest radiograph from same day. 10/19/2022 CLINICAL INDICATION: Female, 64 years old with history of ddimer, tachycardia; tachycardia/elevated d dimer TECHNIQUE/CONTRAST: CTA scan of the thorax is performed with IV Contrast, patient injected with 65ml mL of Isovue 370, MS P images are created and reviewed these are created on a separate workstation.. CT DLP: 264.4 mGycm, Automated exposure control for dose reduction was used. FINDINGS: Lungs/Pleura: No evidence of focal consolidation, pleural effusion or pneumothorax. Airway: Large airways are patent. Heart: Heart is within normal limits for size. Vasculature: There is no evidence for a filling defect within the pulmonary vasculature to suggest ac mendez pulmonary embolism. The pulmonary artery is of normal size. Mediastinum: No gross evidence of adenopathy. Musculoskeletal: No acute osseous abnormalities Soft Tissues/lymph nodes: Unremarkable. Lower neck: No significant findings. Upper Abdomen: No significant findings. IMPRESSION: No evidence of pulmonary embolism. Follow up recommendations for incidental pulmonary nodules, if there are any, are per [employer] or [employer]. https://radiopaedia.org/articles/gjhsoibdly-lqmyumg-nhqxyiuea-[email or web address]?lang=us [facility], , 09/04/2024 5:30 PM
[2024-09-05] MEDS: LEVOTHYROXINE 88 MCG TAB PO SCH (06:31)
[2024-09-05 08:29] LABS: Carbon Dioxide 22.1 mmol/L (21.6-31.8); Chloride 118 mmol/L (96-109); Glucose 99 mg/dL (70-110); Potassium 3.7 mmol/L (3.5-5.5); Sodium 151 mmol/L (135-145)
[2024-09-05 08:30] LABS: ALT 48 U/L (8-44); AST 60 U/L (13-35); Albumin 3.8 g/dL (3.8-4.9); Albumin/Globulin Ratio 1.73 Ratio (1.60-3.17); Alkaline Phosphatase 87 U/L (41-126); Globulin 2.2 g/dL (1.6-3.3); Total Bilirubin 0.6 mg/dL (0.3-1.2)
[2024-09-05 08:41] LABS: Basophils # (A) 0.12 X 10*3/uL (0.00-0.10); Basophils % (A) 1.4 %; Eosinophils # (A) 0.13 X 10*3/uL (0.04-0.35); Eosinophils % (A) 1.6 %; HGB 11.7 g/dL (12.0-15.0); Lymphocytes # (A) 1.84 X 10*3/uL (0.90-5.00); MCH 28.5 pg (27.0-32.0); MCHC 32.5 g/dL (32.0-37.0); MCV 87.8 FL (80.0-97.0); Mean Platelet Volume 10.4 FL (9.5-12.2); Monocytes # (A) 0.99 X 10*3/uL (0.20-1.00); Monocytes % (A) 11.8 %; NRBC Per 100 WBC 0 X 10*3/uL (0.00-0.01); Neutrophils # (A) 5.27 X 10*3/uL (1.80-7.70); Neutrophils % (A) 62.8 %; Platelet Count 391 X 10*3/uL (140-440); RDW 12.9 % (11.5-14.5); WBC 8.38 X 10*3/uL (4.50-10.00)
--- NOTE | 2024-09-05 13:02 | P.CN ---
Psychiatric Consult - . Consult date: 09/05/24 Consult:: 09/05/24 12:53 IDENTIFYING DATA: This patient is a 64-year-old female, living alone REASON FOR REFERRAL: Psychiatry was consulted for MDD HISTORY OF PRESENT ILLNESS: The patient presented to the hospital with generalized weakness and a fall. Patient was found laying in her home in feces and APS was contacted. Labs are significant for hypernatremia, elevated LFTs and CK and a right bundle branch block revealed on EKG, QTc within normal limits. Patient seen at bedside with daughter Michell. Patient was fixated on not wanting to go to an assisted living or AFC home and required frequent redirection throughout the interview. Of note patient was not able to provide any meaningful reasoning as to why she wants to return home despite the condition the home was found. Patient was also unable to appreciate any risks or benefits with returning home versus assisted living. Patient states she feels like she has been depressed but states that this is due to her losing her son and not having family support. She vehemently denied any suicidal ideations or homical ideations, intent or plan. Patient does report some sleep difficulties but denied any appetite changes or energy changes. Patient denies any auditory, visual hallucinations and denies any paranoia or delusions. Daughter states that patient has a history of mood swings and anxiety however has had a significant decline over the last 2 months. Daughter states she feels this is due to patient living alone and not having any support from family. Daughter states she will be pursuing guardianship. PAST PSYCHIATRIC HISTORY: Patient has a history of anxiety. Patient denies being on any psychiatric medications. She was previously on Xanax per daughter. Patient denies any previous psychiatric hospitalizations. Patient denies any psychiatric outpatient follow-up. Patient denies any history of suicide attempts in the past. PAST MEDICAL HISTORY: This lipidemia, thyroid disorder, migraines. ALLERGIES: as per EMR. CHEMICAL DEPENDENCY HISTORY: as per HPI. FAMILY PSYCHIATRIC/SUBSTANCE USE HISTORY: Denies SOCIAL HISTORY: Patient has 3 children however lost one of them. She has several grandkids whom she help take care of. She is living alone, unemployed. MENTAL STATUS EXAM: General Appearance: Patient appears to be stated age is alert however largely uncooperative, requiring frequent redirection. Patient appears to have poor hyg iene and grooming wearing hospital gown with fair eye contact. Behavior: Patient is calmly lying in bed without any agitated behavior. Speech: Patient's speech is fluent and nonpressured. Mood/Affect: Patient reports their mood is "upset", affect is congruent, constricted Suicidality/Homicidality: Patient denies having any suicidal or homicidal ideation intent or plan. Perceptions: Patient denies any visual hallucinations and denies any auditory hallucinations Though content/process: There is no evidence of any delusional thought content and thought process is tangential, thought content is fixated on not going to an AFC or assisted living home.. Memory and concentration: Impaired Judgment and insight: Poor IMPRESSIONS: Depression, unspecified Unspecified neurocognitive disorder PLAN: -At this time patient DOES NOT meet criteria for inpatient psychiatric admission. -Patient DOES NOT have decision making capacity at this time and is unable to reason through and communicate/appreciate the risks, benefits and alternatives to treatment. Daughter states she will be pursuing guardianship and that she would be the surrogate decision maker -Would recommend the following medication changes/additions: Start Remeron 7.5 mg at bedtime for depression -Can discontinue 1:1 sitter at this time as patient is not currently an imminent threat to themselves -railroad yard worker to provide patient with outpatient mental health/psychiatry resources for appropriate follow up upon discharge -Communicated plan to patient's nurse -Psychiatry will sign off at this time -Please contact with any questions.
[2024-09-05 13:48] VITALS: BMI 16.7
--- NOTE | 2024-09-05 14:08 | P.PN ---
Subjective Progress Note Date: 09/05/24 History of present illness; Patient is a 74-year-old female who presents with fall. Patient states while at home she had tripped over her dog. She states that she has been in bed for the last 1 week. She states she has had poor appetite and low dietary intake. She is unclear as to why she has stayed in bed, but states that she has no family visiting her regularly. Family in room states that she has living situation with feces throughout home. Patient has no stated complaints at this time. Patient reports absence of fever, chills, chest pain, palpitations, diaphoresis, dyspnea, cough, nausea, vomiting, constipation, diarrhea, abdominal pain, weakness, dizziness, headache, and dysuria. Labs in ER significant for WBC 13.1, hemoglobin 16.6, platelets 521, sodium 145, potassium 4.5, bicarb 19, BUN 61, creatinine 1.44, glucose of 136, lactic acid 3.6 => 1.2 troponin negative, TSH 6.1, UA significant for cloudy appearance, trace protein, trace ketones, hyaline casts. EKG done in the ER independently interpreted showed sinus tachycardia heart rate of 122, no ST segment elevation or depression seen, no T-wave inversions seen. Chest x-ray done independently interpreted in the ER showed no acute cardiopulmonary findings. 09/05/2024 Patient seen and examined at bedside. No acute events overnight. Patient assessed by psychiatry and she does not have decision-making capacity at this time, daughter will pursue guardianship. Begin Remeron 7.5 mg for depression at bedtime. Today's labs significant for WBC 8.3, hemoglobin 11.7, sodium 151, BUN 32, AST 60, ALT 48. REVIEW OF SYSTEMS: Pertinent positives and negatives noted in HPI. PHYSICAL EXAMINATION: Vitals reviewed GENERAL: No acute distress. Thin appearing. HEENT: Pupils are round and equally reacting to light. EOMI. No scleral icterus. Normocephalic, atraumatic. No pharyngeal erythema. No thyromegaly. CARDIOVASCULAR: S1 and S2 present. No murmurs, rubs, or gallops. PULMONARY: Chest is clear to auscultation, no wheezing, rhonchi, or crackles. ABDOMEN: Soft, nontender, nondistended, normoactive bowel sounds. No palpable organomegaly. MUSCULOSKELETAL: No apparent joint swelling and deformities. EXTREMITIES: No apparent cyanosis, clubbing, or pedal edema. NEUROLOGICAL: The patient is alert and oriented x3, Gross neurological examination did not reveal any focal deficits. SKIN: No apparent rashes. Assessment and plan Patient is a 74-year-old female who presents with generalized weakness. #Syncope with generalized weakness -Chest x-ray with no acute findings -CK 440, D-dimer 1.26 CT chest angiogram no findings of PE Bilateral lower extremity Doppler ultrasound no DVT -PT OT consulted #Depression #Medical decision making capacity #Failure to thrive, BMI 16.8 with Starvation ketosis Patient does not have decision-making capacity, daughter pursuing guardianship Begin Remeron 7.5 mg nightly Psychiatry following #ZORA due to dehydration, resolved Given 2.5 L normal saline Continue to monitor BMP #Leukocytosis, likely reactive, resolved Given Rocephin Chest x-ray and UA negative for infectious source Blood culture pending, procalcitonin 0.12 Monitor CBC #Hypothyroidism TSH 6.19 Resume Synthroid F: P.o. E: Replete as needed N: Heart healthy DVT ppx: Subq Lovenox 40 meq daily Code status: Full code Anticipated discharge place: Pending clinical course Anticipated discharge time: Pending clinical course Dictation was produced using [employer] dictation software. Please excuse any grammatical, word or spelling errors. Attestation I have seen and examined this patient with my resident , discussed the same with the resident/GEORGINA, and agree with the dictator's assessment and plan as written Dr. Ilir berg Objective - Vital Signs Vital signs: Vital Signs Temp 98.7 F 09/05/24 08:00 Pulse 95 09/05/24 08:00 Resp 20 09/05/24 08:00 BP 106/62 09/05/24 08:00 Pulse Ox 97 09/05/24 08:00 FiO2 Intake & Output 09/04/24 09/05/24 09/05/24 18:59 06:59 18:59 Intake Total 240 Balance 240 Weight 42.9 kg Intake: Oral 240 Other: Voiding Method Toilet # Voids 1 1 - Labs CBC & Chem 7: 09/05/24 03:42 09/05/24 03:42 Labs: Abnormal Lab Results - Last 24 Hours (Table) 09/04/24 09/04/24 09/05/24 Range/Units 11:53 11:53 03:42 Hgb 11.7 L (12.0-15.0) g/dL Hct 36.0 L (37.2-46.3) % Basophils # 0.12 H (0.00-0.10) X 10*3/uL D-Dimer 1.26 H (<0.60) mg/L FEU Sodium (135-145) mmol/L Chloride (96-109) mmol/L BUN (9.0-27.0) mg/dL BUN/Creatinine Ratio (.00-20.00) Ratio AST (13-35) U/L ALT (8-44) U/L Creatine Kinase 440 H (30-135) U/L Total Protein (6.2-8.2) g/dL 09/05/24 Range/Units 03:42 Hgb (12.0-15.0) g/dL Hct (37.2-46.3) % Basophils # (0.00-0.10) X 10*3/uL D-Dimer (<0.60) mg/L FEU Sodium 151 H (135-145) mmol/L Chloride 118 H (96-109) mmol/L BUN 32.0 H (9.0-27.0) mg/dL BUN/Creatinine Ratio 32.00 H (12.00-20.00) Ratio AST 60 H (13-35) U/L ALT 48 H (8-44) U/L Creatine Kinase (30-135) U/L Total Protein 6.0 L (6.2-8.2) g/dL
[2024-09-05] MEDS: MIRTAZAPINE 15 MG TAB PO SCH (19:49)
[2024-09-06 12:32] LABS: ALT 34 U/L (4-34); AST 39 U/L (14-36); African American GFR (CKD) 79 (>60 ml/min/1.73 sqM); Albumin 3.3 g/dL (3.5-5.0); Albumin/Globulin Ratio 1.5; Alkaline Phosphatase 68 U/L (38-126); Anion Gap 7 mmol/L; Blood Urea Nitrogen 20 mg/dL (7-17); Calcium 8.5 mg/dL (8.4-10.2); Carbon Dioxide 28 mmol/L (22-30); Chloride 105 mmol/L (98-107); Globulin 2.2 g/dL; Glucose 63 mg/dL (74-99); Non-African American GFR(CKD) 68 (>60 ml/min/1.73 sqM); Potassium 3.4 mmol/L (3.5-5.1); Sodium 140 mmol/L (137-145); Total Bilirubin 0.4 mg/dL (0.2-1.3); Total Protein 5.5 g/dL (6.3-8.2)
[2024-09-06] MEDS: ACETAMINOPHEN TAB 325 MG TAB PO PRN (13:54)
--- NOTE | 2024-09-06 14:13 | CT ---
EXAMINATION TYPE: CT brain wo con DATE OF EXAM: 09/06/2024 1:35 PM COMPARISON: 11/28/2023. CLINICAL INDICATION: Female, 64 years old with history of Headache, headache TECHNIQUE: Brain: Axial CT images of the brain were obtained with coronal and sagittal reformats created and rev iewed. Contrast used: None. Oral contrast used: None. CT DLP: 1100 mGycm, Automated exposure control for dose reduction was used. FINDINGS: Brain: Extra-axial spaces: No abnormal extra-axial fluid collections. Ventricular system: Dilatation in proportion to cerebral atrophy. Cerebral parenchyma: Cerebral atrophy. No acute intraparenchymal hemorrhage or mass effect. The lange -white junction is well differentiated. Scattered hypoattenuating areas are seen within the white mat ter. Cerebellum: Unremarkable. Mass effect: No evidence of midline shift. Intracranial vasculature: unremarkable Soft tissues: Normal. Calvarium/osseous structures: No depressed skull fracture. Paranasal sinuses and mastoid air cells: Mild scattered paranasal sinus disease. Visualized orbits: Orbital contents are intact. IMPRESSION: 1. No acute intracranial process. 2. Nonspecific white matter changes, likely secondary to chronic small vessel ischemic disease. [facility], , 09/06/2024 2:10 PM
--- NOTE | 2024-09-06 14:48 | P.PN ---
Subjective Progress Note Date: 09/06/24 History of present illness; Patient is a 74-year-old female who presents with fall. Patient states while at home she had tripped over her dog. She states that she has been in bed for the last 1 week. She states she has had poor appetite and low dietary intake. She is unclear as to why she has stayed in bed, but states that she has no family visiting her regularly. Family in room states that she has living situation with feces throughout home. Patient has no stated complaints at this time. Patient reports absence of fever, chills, chest pain, palpitations, diaphoresis, dyspnea, cough, nausea, vomiting, constipation, diarrhea, abdominal pain, weakness, dizziness, headache, and dysuria. Labs in ER significant for WBC 13.1, hemoglobin 16.6, platelets 521, sodium 145, potassium 4.5, bicarb 19, BUN 61, creatinine 1.44, glucose of 136, lactic acid 3.6 => 1.2 troponin negative, TSH 6.1, UA significant for cloudy appearance, trace protein, trace ketones, hyaline casts. EKG done in the ER independently interpreted showed sinus tachycardia heart rate of 122, no ST segment elevation or depression seen, no T-wave inversions seen. Chest x-ray done independently interpreted in the ER showed no acute cardiopulmonary findings. 09/05/2024 Patient seen and examined at bedside. No acute events overnight. Patient assessed by psychiatry and she does not have decision-making capacity at this time, daughter will pursue guardianship. Begin Remeron 7.5 mg for depression at bedtime. Today's labs significant for WBC 8.3, hemoglobin 11.7, sodium 151, BUN 32, AST 60, ALT 48. 09/05/2024 Patient seen and examined at bedside. No acute events overnight. CT brain completed with no acute intracranial process. Daughter is pursuing guardianship. Labs today remarkable for potassium 3.4, BUN 20, glucose 63. REVIEW OF SYSTEMS: Pertinent positives and negatives noted in HPI. PHYSICAL EXAMINATION: Vitals reviewed GENERAL: No acute distress. Thin appearing. HEENT: Pupils are round and equally reacting to light. EOMI. No scleral icterus. Normocephalic, atraumatic. No pharyngeal erythema. No thyromegaly. CARDIOVASCULAR: S1 and S2 present. No murmurs, rubs, or gallops. PULMONARY: Chest is clear to auscultation, no wheezing, rhonchi, or crackles. ABDOMEN: Soft, nontender, nondistended, normoactive bowel sounds. No palpable organomegaly. MUSCULOSKELETAL: No apparent joint swelling and deformities. EXTREMITIES: No apparent cyanosis, clubbing, or pedal edema. NEUROLOGICAL: The patient is alert and oriented x3, Gross neurological examination did not reveal any focal deficits. SKIN: No apparent rashes. Assessment and plan Patient is a 74-year-old female who presents with generalized weakness. #Syncope with generalized weakness -Chest x-ray with no acute findings -CK 440, D-dimer 1.26 CT chest angiogram no findings of PE Bilateral lower extremity Doppler ultrasound no DVT -PT OT consulted #Depression #Medical decision making capacity #Failure to thrive, BMI 16.8 with Starvation ketosis Patient does not have decision-making capacity, daughter pursuing guardianship Begin Remeron 7.5 mg nightly Psychiatry following #ZORA due to dehydration, resolved Given 2.5 L normal saline Continue to monitor BMP #Leukocytosis, likely reactive, resolved Given Rocephin Chest x-ray and UA negative for infectious source Blood culture pending, procalcitonin 0.12 Monitor CBC #Hypothyroidism TSH 6.19 Resume Synthroid F: P.o. E: Replete as needed N: Heart healthy DVT ppx: Subq Lovenox 40 meq daily Code status: Full code Anticipated discharge place: Pending clinical course Anticipated discharge time: Pending clinical course Dictation was produced using [employer] dictation software. Please excuse any gra mmatical, word or spelling errors. I have seen and examined this patient with my resident , discussed the same with the resident/GEORGINA, and agree with the dictator's assessment and plan as written Dr. Ilir berg Objective - Vital Signs Vital signs: Vital Signs Temp 98.1 F 09/06/24 07:57 Pulse 89 09/06/24 07:57 Resp 17 09/06/24 07:57 BP 122/76 09/06/24 07:57 Pulse Ox 100 09/06/24 07:57 FiO2 Intake & Output 09/05/24 09/06/24 09/06/24 18:59 06:59 18:59 Weight 42.9 kg Other: Voiding Method Toilet Toilet # Voids 2 1 - Labs CBC & Chem 7: 09/05/24 03:42 09/06/24 11:53 Labs: Abnormal Lab Results - Last 24 Hours (Table) 09/06/24 Range/Units 11:53 Potassium 3.4 L (3.5-5.1) mmol/L BUN 20 H (7-17) mg/dL Glucose 63 L (74-99) mg/dL AST 39 H (14-36) U/L Total Protein 5.5 L (6.3-8.2) g/dL Albumin 3.3 L (3.5-5.0) g/dL Microbiology - Last 24 Hours (Table) 09/04/24 00:44 Blood Culture - Preliminary Blood
[2024-09-06] MEDS ORDERED: DEXTROSE 50% SYRINGE 50 ML IVP PRN ×2 (14:50)
[2024-09-06] MEDS: ALPRAZolam 0.25 MG TAB PO PRN (19:02)
[2024-09-06 21:04] LABS: Glucose,Whole Blood 116 mg/dL (70-110)
[2024-09-06] MEDS: HYDROcodone/APAP 5-325MG 1 EACH TAB PO PRN (21:39)
[2024-09-07 06:43] LABS: Glucose,Whole Blood 88 mg/dL (70-110)
[2024-09-07 10:34] LABS: ALT 31 U/L (8-44); AST 30 U/L (13-35); Albumin 3.4 g/dL (3.8-4.9); Albumin/Globulin Ratio 1.62 Ratio (1.60-3.17); Alkaline Phosphatase 78 U/L (41-126); BUN/Creat Ratio 23.75 Ratio (12.00-20.00); Calcium 8.7 mg/dL (8.7-10.3); Carbon Dioxide 23.3 mmol/L (21.6-31.8); Chloride 108 mmol/L (96-109); Globulin 2.1 g/dL (1.6-3.3); Glucose 95 mg/dL (70-110); Potassium 3.6 mmol/L (3.5-5.5); Sodium 141 mmol/L (135-145); Total Bilirubin 0.3 mg/dL (0.3-1.2); Total Protein 5.5 g/dL (6.2-8.2)
[2024-09-07 11:38] LABS: Glucose,Whole Blood 121 mg/dL (70-110)
--- NOTE | 2024-09-07 15:01 | P.PN ---
Subjective Progress Note Date: 09/07/24 History of present illness; Patient is a 74-year-old female who presents with fall. Patient states while at home she had tripped over her dog. She states that she has been in bed for the last 1 week. She states she has had poor appetite and low dietary intake. She is unclear as to why she has stayed in bed, but states that she has no family visiting her regularly. Family in room states that she has living situation with feces throughout home. Patient has no stated complaints at this time. Patient reports absence of fever, chills, chest pain, palpitations, diaphoresis, dyspnea, cough, nausea, vomiting, constipation, diarrhea, abdominal pain, weakness, dizziness, headache, and dysuria. Labs in ER significant for WBC 13.1, hemoglobin 16.6, platelets 521, sodium 145, potassium 4.5, bicarb 19, BUN 61, creatinine 1.44, glucose of 136, lactic acid 3.6 => 1.2 troponin negative, TSH 6.1, UA significant for cloudy appearance, trace protein, trace ketones, hyaline casts. EKG done in the ER independently interpreted showed sinus tachycardia heart rate of 122, no ST segment elevation or depression seen, no T-wave inversions seen. Chest x-ray done independently interpreted in the ER showed no acute cardiopulmonary findings. 09/05/2024 Patient seen and examined at bedside. No acute events overnight. Patient assessed by psychiatry and she does not have decision-making capacity at this time, daughter will pursue guardianship. Begin Remeron 7.5 mg for depression at bedtime. Today's labs significant for WBC 8.3, hemoglobin 11.7, sodium 151, BUN 32, AST 60, ALT 48. 09/05/2024 Patient seen and examined at bedside. No acute events overnight. CT brain completed with no acute intracranial process. Daughter is pursuing guardianship. Labs today remarkable for potassium 3.4, BUN 20, glucose 63. 09/07. Patient seen and examined. No acute issues overnight. Vital signs stable REVIEW OF SYSTEMS: Pertinent positives and negatives noted in HPI. PHYSICAL EXAMINATION: Vitals reviewed GENERAL: No acute distress. Thin appearing. HEENT: Pupils are round and equally reacting to light. EOMI. No scleral icterus. Normocephalic, atraumatic. No pharyngeal erythema. No thyromegaly. CARDIOVASCULAR: S1 and S2 present. No murmurs, rubs, or gallops. PULMONARY: Chest is clear to auscultation, no wheezing, rhonchi, or crackles. ABDOMEN: Soft, nontender, nondistended, normoactive bowel sounds. No palpable organomegaly. MUSCULOSKELETAL: No apparent joint swelling and deformities. EXTREMITIES: No apparent cyanosis, clubbing, or pedal edema. NEUROLOGICAL: The patient is alert and oriented x3, Gross neurological examination did not reveal any focal deficits. SKIN: No apparent rashes. Assessment and plan Patient is a 74-year-old female who presents with generalized weakness. #Syncope with generalized weakness -Chest x-ray with no acute findings -CK 440, D-dimer 1.26 CT chest angiogram no findings of PE Bilateral lower extremity Doppler ultrasound no DVT -PT OT following #Depression #Medical decision making capacity #Failure to thrive, BMI 16.8 with Starvation ketosis Patient does not have decision-making capacity, daughter pursuing guardianship Begin Remeron 7.5 mg nightly Psychiatry following #ZORA due to dehydration, resolved Given 2.5 L normal saline Continue to monitor BMP #Leukocytosis, likely reactive, resolved Given Rocephin Chest x-ray and UA negative for infectious source Blood culture pending, procalcitonin 0.12 Monitor CBC #Hypothyroidism Continue Synthroid Objective - Vital Signs Vital signs: Vital Signs Temp 98.0 F 09/07/24 07:29 Pulse 81 09/07/24 07:29 Resp 16 09/07/24 07:29 BP 100/60 09/07/24 07:29 Pulse Ox 99 09/07/24 07:29 FiO2 Intake & Output 09/06/24 09/07/24 09/07/24 18:59 06:59 18:59 Intake Total 480 Balance 480 Intake: Oral 480 Other: Voiding Method Toilet Toilet # Voids 1 - Labs CBC & Chem 7: 09/05/24 03:42 09/07/24 03:58 Labs: Abnormal Lab Results - Last 24 Hours (Table) 09/06/24 09/07/24 09/07/24 Range/Units 21:03 03:58 11:34 BUN/Creatinine Ratio 23.75 H (12.00-20.00) Ratio POC Glucose (mg/dL) 116 H 121 H (70-110) mg/dL Total Protein 5.5 L (6.2-8.2) g/dL Albumin 3.4 L (3.8-4.9) g/dL Microbiology - Last 24 Hours (Table) 09/04/24 00:44 Blood Culture - Preliminary Blood
[2024-09-07 16:57] LABS: Glucose,Whole Blood 112 mg/dL (70-110)
[2024-09-07 20:49] LABS: Glucose,Whole Blood 131 mg/dL (70-110)
[2024-09-07 21:12] LABS: Glucose,Whole Blood 145 mg/dL (70-110)
[2024-09-08 06:36] LABS: Glucose,Whole Blood 99 mg/dL (70-110)
[2024-09-08 09:44] LABS: ALT 26 U/L (8-44); AST 23 U/L (13-35); Albumin 3.5 g/dL (3.8-4.9); Albumin/Globulin Ratio 1.84 Ratio (1.60-3.17); Alkaline Phosphatase 81 U/L (41-126); BUN/Creat Ratio 26.14 Ratio (12.00-20.00); Blood Urea Nitrogen 18.3 mg/dL (9.0-27.0); Calcium 8.7 mg/dL (8.7-10.3); Carbon Dioxide 23.9 mmol/L (21.6-31.8); Chloride 104 mmol/L (96-109); Globulin 1.9 g/dL (1.6-3.3); Glucose 112 mg/dL (70-110); Potassium 3.8 mmol/L (3.5-5.5); Sodium 139 mmol/L (135-145); Total Bilirubin <0.2 mg/dL (0.3-1.2); Total Protein 5.4 g/dL (6.2-8.2)
[2024-09-08 11:31] LABS: Glucose,Whole Blood 107 mg/dL (70-110)
--- NOTE | 2024-09-08 14:56 | P.PN ---
Subjective Progress Note Date: 09/08/24 Principal diagnosis: Hospital course: Patient is a 74-year-old female who presents with fall. Patient states while at home she had tripped over her dog. She states that she has been in bed for the last 1 week. She states she has had poor appetite and low dietary intake. She is unclear as to why she has stayed in bed, but states that she has no family visiting her regularly. Family in room states that she has living situation with feces throughout home. Patient has no stated complaints at this time. Patient reports absence of fever, chills, chest pain, palpitations, diaphoresis, dyspnea, cough, nausea, vomiting, constipation, diarrhea, abdominal pain, weakness, dizziness, headache, and dysuria. Labs in ER significant for WBC 13.1, hemoglobin 16.6, platelets 521, sodium 145, potassium 4.5, bicarb 19, BUN 61, creatinine 1.44, glucose of 136, lactic acid 3.6 => 1.2 troponin negative, TSH 6.1, UA significant for cloudy appearance, trace protein, trace ketones, hyaline casts. EKG done in the ER independently interpreted showed sinus tachycardia heart rate of 122, no ST segment elevation or depression seen, no T-wave inversions seen. Chest x-ray done independently interpreted in the ER showed no acute cardiopulmonary findings. 09/05/2024 Patient seen and examined at bedside. No acute events overnight. Patient assessed by psychiatry and she does not have decision-making capacity at this time, daughter will pursue guardianship. Begin Remeron 7.5 mg for depression at bedtime. Today's labs significant for WBC 8.3, hemoglobin 11.7, sodium 151, BUN 32, AST 60, ALT 48. 09/05/2024 Patient seen and examined at bedside. No acute events overnight. CT brain completed with no acute intracranial process. Daughter is pursuing guardianship. Labs today remarkable for potassium 3.4, BUN 20, glucose 63. 09/07. Patient seen and examined. No acute issues overnight. Vital signs stable 09/08/24: Patient evaluated at bedside today. No acute events overnight. Vital signs stable. Patient mentions feeling better today. Labs today show BUN 18.3, creatinine 0.7, potassium 3.8. Review of systems: Pertinent positives and negatives as discussed in HPI, a complete review of systems was performed and all other systems are negative. Vitals: Signs Reviewed Physical examination: General: nontoxic, no distress, appears at stated age, Thin appearing Derm: warm, dry, intact Head: atraumatic, normocephalic, symmetric Eyes: EOMI, anicteric sclera Mouth: no lip lesion, mucus membranes moist Cardiovascular: S1 S2 reg, no murmur Lungs: CTA bilateral, no rhonchi, no rales, no accessory muscle use Abdominal: soft, non-tender to palpataion Extremities: No cyanosis, clubbing, or pedal edema. Neuro: Alert, Oriented, Gross neurological examination did not reveal any focal deficits. Psych: well appearing, appropriate affect Assessment/Plan: Patient is a 74-year-old female who presents with generalized weakness. #Syncope with generalized weakness -Chest x-ray with no acute findings -CK 440, D-dimer 1.26 CT chest angiogram no findings of PE Bilateral lower extremity Doppler ultrasound no DVT -PT and OT recommend 02/04 rehab at discharge as patient is not safe home alone, she is a high fall risk, needs assist with mobility at this time as she is unsteady and decreased insight into safety deficits #Depression #Medical decision making capacity #Failure to thrive, BMI 16.8 with Starvation ketosis Patient does not have decision-making capacity, daughter pursuing guardianship Remeron 7.5 mg nightly #ZORA due to dehydration, resolved Given 2.5 L normal saline Continue to monitor BMP #Leukocytosis, likely reactive, resolved Given Rocephin Chest x-ray and UA negative for infectious source Blood culture pending, procalcitonin 0.12 Monitor CBC #Hypothyroidism Continue Synthroid F: None E: Replete as required N: Heart healthy diet GI prophylaxis: Famotidine 20 mg p.o. daily Attestation I have seen and examined this patient with my resident , discussed the same with the resident/GEORGINA, and agree with the dictator's assessment and plan as written Dr. Ilir berg Objective - Vital Signs Vital signs: Vital Signs Temp 97.6 F 09/08/24 07:19 Pulse 84 09/08/24 07:19 Resp 17 09/08/24 07:19 BP 96/58 09/08/24 07:19 Pulse Ox 97 09/08/24 07:19 FiO2 Intake & Output 09/07/24 09/08/24 09/08/24 18:59 06:59 18:59 Intake Total 650 480 Balance 650 480 Intake: Oral 650 480 Other: Voiding Method Toilet # Voids 2 2 # Bowel Movements 1 - Labs CBC & Chem 7: 09/05/24 03:42 09/08/24 03:00 Labs: Abnormal Lab Results - Last 24 Hours (Table) 09/07/24 09/07/24 09/07/24 Range/Units 03:58 11:34 16:54 BUN/Creatinine Ratio 23.75 H (12.00-20.00) Ratio POC Glucose (mg/dL) 121 H 112 H (70-110) mg/dL Total Protein 5.5 L (6.2-8.2) g/dL Albumin 3.4 L (3.8-4.9) g/dL 09/07/24 09/07/24 Range/Units 20:48 21:11 BUN/Creatinine Ratio (12.00-20.00) Ratio POC Glucose (mg/dL) 131 H 145 H (70-110) mg/dL Total Protein (6.2-8.2) g/dL Albumin (3.8-4.9) g/dL Microbiology - Last 24 Hours (Table) 09/04/24 00:44 Blood Culture - Preliminary Blood
[2024-09-08 16:27] LABS: Glucose,Whole Blood 121 mg/dL (70-110)
[2024-09-08 21:04] LABS: Glucose,Whole Blood 111 mg/dL (70-110)
[2024-09-09 06:08] LABS: Glucose,Whole Blood 101 mg/dL (70-110)
[2024-09-09 08:54] LABS: BUN/Creat Ratio 15.33 Ratio (12.00-20.00); Blood Urea Nitrogen 13.8 mg/dL (9.0-27.0); Calcium 8.9 mg/dL (8.7-10.3); Carbon Dioxide 24.7 mmol/L (21.6-31.8); Chloride 104 mmol/L (96-109); Glucose 97 mg/dL (70-110); Potassium 4.2 mmol/L (3.5-5.5); Sodium 138 mmol/L (135-145)
[2024-09-09 09:03] LABS: HCT 31.9 % (37.2-46.3); HGB 10.8 g/dL (12.0-15.0); MCH 28.8 pg (27.0-32.0); MCHC 33.9 g/dL (32.0-37.0); MCV 85.1 FL (80.0-97.0); Mean Platelet Volume 10.5 FL (9.5-12.2); NRBC Per 100 WBC 0 X 10*3/uL (0.00-0.01); Platelet Count 377 X 10*3/uL (140-440); RBC 3.75 X 10*6/uL (4.10-5.20); RDW 12.5 % (11.5-14.5); WBC 6.92 X 10*3/uL (4.50-10.00)
[2024-09-09 11:36] LABS: Glucose,Whole Blood 95 mg/dL (70-110)
--- NOTE | 2024-09-09 12:27 | P.PN ---
Subjective Progress Note Date: 09/09/24 Principal diagnosis: Hospital course: Patient is a 74-year-old female who presents with fall. Patient states while at home she had tripped over her dog. She states that she has been in bed for the last 1 week. She states she has had poor appetite and low dietary intake. She is unclear as to why she has stayed in bed, but states that she has no family visiting her regularly. Family in room states that she has living situation with feces throughout home. Patient has no stated complaints at this time. Patient reports absence of fever, chills, chest pain, palpitations, diaphoresis, dyspnea, cough, nausea, vomiting, constipation, diarrhea, abdominal pain, weakness, dizziness, headache, and dysuria. Labs in ER significant for WBC 13.1, hemoglobin 16.6, platelets 521, sodium 145, potassium 4.5, bicarb 19, BUN 61, creatinine 1.44, glucose of 136, lactic acid 3.6 => 1.2 troponin negative, TSH 6.1, UA significant for cloudy appearance, trace protein, trace ketones, hyaline casts. EKG done in the ER independently interpreted showed sinus tachycardia heart rate of 122, no ST segment elevation or depression seen, no T-wave inversions seen. Chest x-ray done independently interpreted in the ER showed no acute cardiopulmonary findings. 09/05/2024 Patient seen and examined at bedside. No acute events overnight. Patient assessed by psychiatry and she does not have decision-making capacity at this time, daughter will pursue guardianship. Begin Remeron 7.5 mg for depression at bedtime. Today's labs significant for WBC 8.3, hemoglobin 11.7, sodium 151, BUN 32, AST 60, ALT 48. 09/05/2024 Patient seen and examined at bedside. No acute events overnight. CT brain completed with no acute intracranial process. Daughter is pursuing gu ardianship. Labs today remarkable for potassium 3.4, BUN 20, glucose 63. 09/07. Patient seen and examined. No acute issues overnight. Vital signs stable 09/08/24: Patient evaluated at bedside today. No acute events overnight. Vital signs stable. Patient mentions feeling better today. Labs today show BUN 18.3, creatinine 0.7, potassium 3.8. 09/09/24: Patient examined today. No acute events overnight. No new complaints. Labs today show hemoglobin 10.8, creatinine 0.9, WBC 6.92. Review of systems: Pertinent positives and negatives as discussed in HPI, a complete review of systems was performed and all other systems are negative. Vitals: Signs Reviewed Physical examination: General: nontoxic, no distress, appears at stated age, Thin appearing Derm: warm, dry, intact Head: atraumatic, normocephalic, symmetric Eyes: EOMI, anicteric sclera Mouth: no lip lesion, mucus membranes moist Cardiovascular: S1 S2 reg, no murmur Lungs: CTA bilateral, no rhonchi, no rales, no accessory muscle use Abdominal: soft, non-tender to palpataion Extremities: No cyanosis, clubbing, or pedal edema. Neuro: Alert, Oriented, Gross neurological examination did not reveal any focal deficits. Psych: well appearing, appropriate affect Assessment/Plan: Patient is a 74-year-old female who presents with generalized weakness. Patient is determined to not have decision making capacity and her daughter is pursuing guardianship. PT and OT recommend 24/7 rehab. Patient is awaiting placement. #Syncope with generalized weakness -Chest x-ray with no acute findings -CK 440, D-dimer 1.26 CT chest angiogram no findings of PE Bilateral lower extremity Doppler ultrasound no DVT -PT and OT recommend 24/7 rehab at discharge as patient is not safe home alone, she is a high fall risk, needs assist with mobility at this time as she is unsteady and decreased insight into safety deficits #Depression #Medical decision making capacity #Failure to thrive, BMI 16.8 with Starvation ketosis Patient does not have decision-making capacity, daughter pursuing guardianship Remeron 7.5 mg nightly #ZORA due to dehydration, resolved Given 2.5 L normal saline Continue to monitor BMP #Leukocytosis, likely reactive, resolved Given Rocephin Chest x-ray and UA negative for infectious source Blood culture pending, procalcitonin 0.12 Monitor CBC #Hypothyroidism - Continue Synthroid F: None E: Replete as required N: Heart healthy diet GI prophylaxis: Famotidine 20 mg p.o. daily Attestation I have seen and examined this patient with my resident , discussed the same with the resident/GEORGINA, and agree with the dictator's assessment and plan as written Dr. Ilir berg Objective - Vital Signs Vital signs: Vital Signs Temp 98.3 F 09/09/24 07:14 Pulse 79 09/09/24 07:14 Resp 16 09/09/24 07:14 BP 94/60 09/09/24 07:14 Pulse Ox 98 09/09/24 07:14 FiO2 Intake & Output 09/08/24 09/09/24 09/09/24 18:59 06:59 18:59 Other: Voiding Method Diaper Diaper # Voids 6 3 - Labs CBC & Chem 7: 09/10/24 03:35 09/09/24 02:58 Labs: Abnormal Lab Results - Last 24 Hours (Table) 09/08/24 09/08/24 09/08/24 Range/Units 03:00 16:25 21:02 BUN/Creatinine Ratio 26.14 H (12.00-20.00) Ratio Glucose 112 H (70-110) mg/dL POC Glucose (mg/dL) 121 H 111 H (70-110) mg/dL Total Bilirubin <0.2 L (0.3-1.2) mg/dL Total Protein 5.4 L (6.2-8.2) g/dL Albumin 3.5 L (3.8-4.9) g/dL
[2024-09-09 16:28] LABS: Glucose,Whole Blood 116 mg/dL (70-110)
[2024-09-09 20:19] LABS: Glucose,Whole Blood 112 mg/dL (70-110)
[2024-09-10 06:15] LABS: Glucose,Whole Blood 92 mg/dL (70-110)
[2024-09-10 09:07] LABS: HCT 33.5 % (37.2-46.3); HGB 10.9 g/dL (12.0-15.0); MCH 28.3 pg (27.0-32.0); MCHC 32.5 g/dL (32.0-37.0); Mean Platelet Volume 10.8 FL (9.5-12.2); NRBC Per 100 WBC 0 X 10*3/uL (0.00-0.01); Platelet Count 391 X 10*3/uL (140-440); RBC 3.85 X 10*6/uL (4.10-5.20); RDW 12.7 % (11.5-14.5); WBC 8.98 X 10*3/uL (4.50-10.00)
[2024-09-10 09:32] LABS: BUN/Creat Ratio 16.89 Ratio (12.00-20.00); Blood Urea Nitrogen 15.2 mg/dL (9.0-27.0); Calcium 8.9 mg/dL (8.7-10.3); Carbon Dioxide 24.6 mmol/L (21.6-31.8); Chloride 104 mmol/L (96-109); Glucose 102 mg/dL (70-110); Potassium 4.1 mmol/L (3.5-5.5); Sodium 139 mmol/L (135-145)
[2024-09-10] MEDS: SUMAtriptan succinate 50 MG TAB PO PRN (10:33)
[2024-09-10 11:35] LABS: Glucose,Whole Blood 81 mg/dL (70-110)
--- NOTE | 2024-09-10 11:36 | P.PN ---
Subjective Progress Note Date: 09/10/24 Principal diagnosis: Hospital course: Patient is a 74-year-old female who presents with fall. Patient states while at home she had tripped over her dog. She states that she has been in bed for the last 1 week. She states she has had poor appetite and low dietary intake. She is unclear as to why she has stayed in bed, but states that she has no family visiting her regularly. Family in room states that she has living situation with feces throughout home. Patient has no stated complaints at this time. Patient reports absence of fever, chills, chest pain, palpitations, diaphoresis, dyspnea, cough, nausea, vomiting, constipation, diarrhea, abdominal pain, weakness, dizziness, headache, and dysuria. Labs in ER significant for WBC 13.1, hemoglobin 16.6, platelets 521, sodium 145, potassium 4.5, bicarb 19, BUN 61, creatinine 1.44, glucose of 136, lactic acid 3.6 => 1.2 troponin negative, TSH 6.1, UA significant for cloudy appearance, trace protein, trace ketones, hyaline casts. EKG done in the ER independently interpreted showed sinus tachycardia heart rate of 122, no ST segment elevation or depression seen, no T-wave inversions seen. Chest x-ray done independently interpreted in the ER showed no acute cardiopulmonary findings. 09/05/2024 Patient seen and examined at bedside. No acute events overnight. Patient assessed by psychiatry and she does not have decision-making capacity at this time, daughter will pursue guardianship. Begin Remeron 7.5 mg for depression at bedtime. Today's labs significant for WBC 8.3, hemoglobin 11.7, sodium 151, BUN 32, AST 60, ALT 48. 09/05/2024 Patient seen and examined at bedside. No acute events overnight. CT brain completed with no acute intracranial process. Daughter is pursuing guardianship. Labs today remarkable for potassium 3.4, BUN 20, glucose 63. 09/07. Patient seen and examined. No acute issues overnight. Vital signs stable 09/08/24: Patient evaluated at bedside today. No acute events overnight. Vital signs stable. Patient mentions feeling better today. Labs today show BUN 18.3, creatinine 0.7, potassium 3.8. 09/09/24: Patient examined today. No acute events overnight. No new complaints. Labs today show hemoglobin 10.8, creatinine 0.9, WBC 6.92. 09/10/24: Patient evaluated at bedside. No new complaints. Labs today show hemoglobin 10.9, potassium 4.1, creatinine 0.9. Review of systems: Pertinent positives and negatives as discussed in HPI, a complete review of systems was performed and all other systems are negative. Vitals: Signs Reviewed Physical examination: General: nontoxic, no distress, appears at stated age, Thin appearing Derm: warm, dry, intact Head: atraumatic, normocephalic, symmetric Eyes: EOMI, anicteric sclera Mouth: no lip lesion, mucus membranes moist Cardiovascular: S1 S2 reg, no murmur Lungs: CTA bilateral, no rhonchi, no rales, no accessory muscle use Abdominal: soft, non-tender to palpataion Extremities: No cyanosis, clubbing, or pedal edema. Neuro: Alert, Oriented, Gross neurological examination did not reveal any focal deficits. Psych: well appearing, appropriate affect Assessment/Plan: Patient is a 74-year-old female who presents with generalized weakness. Patient is determined to not have decision making capacity and her daughter is pursuing guardianship. PT and OT recommend 24/7 rehab. Patient is awaiting placement. #Syncope with generalized weakness -Chest x-ray with no acute findings -CK 440, D-dimer 1.26 CT chest angiogram no findings of PE Bilateral lower extremity Doppler ultrasound no DVT -PT and OT recommend 24/7 rehab at discharge as patient is not safe home alone, she is a high fall risk, needs assist with mobility at this time as she is unsteady and decreased insight into safety deficits #Depression #Medical decision making capacity #Failure to thrive, BMI 16.8 with Starvation ketosis Patient does not have decision-making capacity, daughter pursuing guardianship Remeron 7.5 mg nightly #ZORA due to dehydration, resolved Given 2.5 L normal saline Continue to monitor BMP #Leukocytosis, likely reactive, resolved Given Rocephin Chest x-ray and UA negative for infectious source Blood culture pending, procalcitonin 0.12 Monitor CBC #Hypothyroidism - Continue Synthroid F: None E: Replete as required N: Heart healthy diet GI prophylaxis: Famotidine 20 mg p.o. daily Attestation I have seen and examined this patient with my resident , discussed the same with the resident/GEORGINA, and agree with the dictator's assessment and plan as written Dr. Ilir berg Objective - Vital Signs Vital signs: Vital Signs Temp 98.8 F 09/10/24 00:48 Pulse 88 09/10/24 00:48 Resp 17 09/10/24 00:48 BP 97/55 09/10/24 00:48 Pulse Ox 98 09/10/24 00:48 FiO2 Intake & Output 09/09/24 09/10/24 09/10/24 18:59 06:59 18:59 Weight 42.9 kg Other: Voiding Method Diaper Toilet Diaper # Voids 3 3 # Bowel Movements 1 - Labs CBC & Chem 7: 09/10/24 03:35 09/10/24 03:35 Labs: Abnormal Lab Results - Last 24 Hours (Table) 09/09/24 09/09/24 09/09/24 Range/Units 02:58 16:26 20:18 RBC 3.75 L (4.10-5.20) X 10*6/uL Hgb 10.8 L (12.0-15.0) g/dL Hct 31.9 L (37.2-46.3) % POC Glucose (mg/dL) 116 H 112 H (70-110) mg/dL Microbiology - Last 24 Hours (Table) 09/04/24 00:44 Blood Culture - Final Blood
[2024-09-10 16:24] LABS: Glucose,Whole Blood 99 mg/dL (70-110)
[2024-09-10 20:25] LABS: Glucose,Whole Blood 130 mg/dL (70-110)
[2024-09-11 06:23] LABS: Glucose,Whole Blood 98 mg/dL (70-110)
[2024-09-11 09:14] LABS: HCT 39.2 % (37.2-46.3); HGB 12.3 g/dL (12.0-15.0); MCH 27.9 pg (27.0-32.0); MCHC 31.4 g/dL (32.0-37.0); MCV 88.9 FL (80.0-97.0); Mean Platelet Volume 10.4 FL (9.5-12.2); NRBC Per 100 WBC 0 X 10*3/uL (0.00-0.01); Platelet Count 495 X 10*3/uL (140-440); RBC 4.41 X 10*6/uL (4.10-5.20); RDW 12.9 % (11.5-14.5); WBC 8.46 X 10*3/uL (4.50-10.00)
[2024-09-11 09:22] LABS: Blood Urea Nitrogen 9.8 mg/dL (9.0-27.0); Calcium 9.7 mg/dL (8.7-10.3); Carbon Dioxide 27.5 mmol/L (21.6-31.8); Chloride 105 mmol/L (96-109); Glucose 94 mg/dL (70-110); Potassium 4.8 mmol/L (3.5-5.5); Sodium 144 mmol/L (135-145)
[2024-09-11 11:09] LABS: Glucose,Whole Blood 95 mg/dL (70-110)
--- NOTE | 2024-09-11 11:44 | P.PN ---
Subjective Progress Note Date: 09/11/24 Principal diagnosis: Hospital course: Patient is a 74-year-old female who presents with fall. Patient states while at home she had tripped over her dog. She states that she has been in bed for the last 1 week. She states she has had poor appetite and low dietary intake. She is unclear as to why she has stayed in bed, but states that she has no family visiting her regularly. Family in room states that she has living situation with feces throughout home. Patient has no stated complaints at this time. Patient reports absence of fever, chills, chest pain, palpitations, diaphoresis, dyspnea, cough, nausea, vomiting, constipation, diarrhea, abdominal pain, weakness, dizziness, headache, and dysuria. Labs in ER significant for WBC 13.1, hemoglobin 16.6, platelets 521, sodium 145, potassium 4.5, bicarb 19, BUN 61, creatinine 1.44, glucose of 136, lactic acid 3.6 => 1.2 troponin negative, TSH 6.1, UA significant for cloudy appearance, trace protein, trace ketones, hyaline casts. EKG done in the ER independently interpreted showed sinus tachycardia heart rate of 122, no ST segment elevation or depression seen, no T-wave inversions seen. Chest x-ray done independently interpreted in the ER showed no acute cardiopulmonary findings. 09/05/2024 Patient seen and examined at bedside. No acute events overnight. Patient assessed by psychiatry and she does not have decision-making capacity at this time, daughter will pursue guardianship. Begin Remeron 7.5 mg for depression at bedtime. Today's labs significant for WBC 8.3, hemoglobin 11.7, sodium 151, BUN 32, AST 60, ALT 48. 09/05/2024 Patient seen and examined at bedside. No acute events overnight. CT brain completed with no acute intracranial process. Daughter is pursuing gu ardianship. Labs today remarkable for potassium 3.4, BUN 20, glucose 63. 09/07. Patient seen and examined. No acute issues overnight. Vital signs stable 09/08/24: Patient evaluated at bedside today. No acute events overnight. Vital signs stable. Patient mentions feeling better today. Labs today show BUN 18.3, creatinine 0.7, potassium 3.8. 09/09/24: Patient examined today. No acute events overnight. No new complaints. Labs today show hemoglobin 10.8, creatinine 0.9, WBC 6.92. 09/10/24: Patient evaluated at bedside. No new complaints. Labs today show hemoglobin 10.9, potassium 4.1, creatinine 0.9. 09/11/24: Patient seen and examined. Vital signs are stable. She complains of a b raissa on her left foot. She reports seeing a compliance counsel a couple years ago, when they had to take her nails out. Labs today show WBC 8.56, hemoglobin 12.3, potassium 4.8, platelet count 495. Review of systems: Pertinent positives and negatives as discussed in HPI, a complete review of systems was performed and all other systems are negative. Vitals: Signs Reviewed Physical examination: General: nontoxic, no distress, appears at stated age, Thin appearing Derm: warm, dry, intact Head: atraumatic, normocephalic, symmetric Eyes: EOMI, anicteric sclera Mouth: no lip lesion, mucus membranes moist Cardiovascular: S1 S2 reg, no murmur Lungs: CTA bilateral, no rhonchi, no rales, no accessory muscle use Abdominal: soft, non-tender to palpataion Extremities: left foot bandaged, No cyanosis, clubbing, or pedal edema. Neuro: Alert, Oriented, Gross neurological examination did not reveal any focal deficits. Psych: well appearing, appropriate affect Assessment/Plan: Patient is a 74-year-old female who presents with generalized weakness. Patient is determined to not have decision making capacity and her daughter is pursuing guardianship. PT and OT recommend 24/7 rehab. Patient is awaiting placement. #Syncope with generalized weakness -Chest x-ray with no acute findings -CK 440, D-dimer 1.26 CT chest angiogram no findings of PE Bilateral lower extremity Doppler ultrasound no DVT -PT and OT recommend 24/7 rehab at discharge as patient is not safe home alone, she is a high fall risk, needs assist with mobility at this time as she is unsteady and decreased insight into safety deficits #. Left Foot blister Recommend outpatient follow up for possible PAD #Depression #Medical decision making capacity #Failure to thrive, BMI 16.8 with Starvation ketosis Patient does not have decision-making capacity, daughter pursuing guardianship Remeron 7.5 mg nightly #ZORA due to dehydration, resolved Given 2.5 L normal saline Continue to monitor BMP #Leukocytosis, likely reactive, resolved Given Rocephin Chest x-ray and UA negative for infectious source Blood culture pending, procalcitonin 0.12 Monitor CBC #Hypothyroidism - Continue Synthroid F: None E: Replete as required N: Heart healthy diet GI prophylaxis: Famotidine 20 mg p.o. daily Attestation I have seen and examined this patient with my resident , discussed the same with the resident/GEORGINA, and agree with the dictator's assessment and plan as written Dr. Ilir berg Objective - Vital Signs Vital signs: Vital Signs Temp 98.3 F 09/11/24 07:25 Pulse 88 09/11/24 07:25 Resp 19 09/11/24 07:25 BP 123/70 09/11/24 07:25 Pulse Ox 99 09/11/24 07:25 FiO2 Intake & Output 09/10/24 09/11/24 09/11/24 18:59 06:59 18:59 Intake Total 840 240 Balance 840 240 Intake: Oral 840 240 Other: # Voids 2 3 # Bowel Movements 1 - Labs CBC & Chem 7: 09/12/24 05:38 09/12/24 05:38 Labs: Abnormal Lab Results - Last 24 Hours (Table) 09/10/24 09/10/24 Range/Units 03:35 20:24 RBC 3.85 L (4.10-5.20) X 10*6/uL Hgb 10.9 L (12.0-15.0) g/dL Hct 33.5 L (37.2-46.3) % POC Glucose (mg/dL) 130 H (70-110) mg/dL
[2024-09-11 16:26] LABS: Glucose,Whole Blood 119 mg/dL (70-110)
[2024-09-11 19:49] LABS: Glucose,Whole Blood 128 mg/dL (70-110)
[2024-09-12 06:39] LABS: Glucose,Whole Blood 105 mg/dL (70-110)
[2024-09-12 08:59] LABS: BUN/Creat Ratio 18.88 Ratio (12.00-20.00); Blood Urea Nitrogen 15.1 mg/dL (9.0-27.0); Calcium 9.6 mg/dL (8.7-10.3); Carbon Dioxide 23.7 mmol/L (21.6-31.8); Chloride 102 mmol/L (96-109); Glucose 109 mg/dL (70-110); Potassium 4.4 mmol/L (3.5-5.5); Sodium 138 mmol/L (135-145)
[2024-09-12 09:06] LABS: HCT 35.4 % (37.2-46.3); HGB 11.7 g/dL (12.0-15.0); MCH 28.3 pg (27.0-32.0); MCHC 33.1 g/dL (32.0-37.0); MCV 85.7 FL (80.0-97.0); Mean Platelet Volume 9.4 FL (9.5-12.2); NRBC Per 100 WBC 0 X 10*3/uL (0.00-0.01); Platelet Count 492 X 10*3/uL (140-440); RBC 4.13 X 10*6/uL (4.10-5.20); RDW 13.2 % (11.5-14.5); WBC 9.33 X 10*3/uL (4.50-10.00)
[2024-09-12 11:52] LABS: Glucose,Whole Blood 119 mg/dL (70-110)
--- NOTE | 2024-09-12 11:55 | P.PN ---
Subjective Progress Note Date: 09/12/24 Principal diagnosis: Hospital course: Patient is a 74-year-old female who presents with fall. Patient states while at home she had tripped over her dog. She states that she has been in bed for the last 1 week. She states she has had poor appetite and low dietary intake. She is unclear as to why she has stayed in bed, but states that she has no family visiting her regularly. Family in room states that she has living situation with feces throughout home. Patient has no stated complaints at this time. Patient reports absence of fever, chills, chest pain, palpitations, diaphoresis, dyspnea, cough, nausea, vomiting, constipation, diarrhea, abdominal pain, weakness, dizziness, headache, and dysuria. Labs in ER significant for WBC 13.1, hemoglobin 16.6, platelets 521, sodium 145, potassium 4.5, bicarb 19, BUN 61, creatinine 1.44, glucose of 136, lactic acid 3.6 => 1.2 troponin negative, TSH 6.1, UA significant for cloudy appearance, trace protein, trace ketones, hyaline casts. EKG done in the ER independently interpreted showed sinus tachycardia heart rate of 122, no ST segment elevation or depression seen, no T-wave inversions seen. Chest x-ray done independently interpreted in the ER showed no acute cardiopulmonary findings. 09/05/2024 Patient seen and examined at bedside. No acute events overnight. Patient assessed by psychiatry and she does not have decision-making capacity at this time, daughter will pursue guardianship. Begin Remeron 7.5 mg for depression at bedtime. Today's labs significant for WBC 8.3, hemoglobin 11.7, sodium 151, BUN 32, AST 60, ALT 48. 09/05/2024 Patient seen and examined at bedside. No acute events overnight. CT brain completed with no acute intracranial process. Daughter is pursuing gu ardianship. Labs today remarkable for potassium 3.4, BUN 20, glucose 63. 09/07. Patient seen and examined. No acute issues overnight. Vital signs stable 09/08/24: Patient evaluated at bedside today. No acute events overnight. Vital signs stable. Patient mentions feeling better today. Labs today show BUN 18.3, creatinine 0.7, potassium 3.8. 09/09/24: Patient examined today. No acute events overnight. No new complaints. Labs today show hemoglobin 10.8, creatinine 0.9, WBC 6.92. 09/10/24: Patient evaluated at bedside. No new complaints. Labs today show hemoglobin 10.9, potassium 4.1, creatinine 0.9. 09/11/24: Patient seen and examined. Vital signs are stable. She complains of a b raissa on her left foot. She reports seeing a pull socket assembler a couple years ago, when they had to take her nails out. Labs today show WBC 8.56, hemoglobin 12.3, potassium 4.8, platelet count 495. 09/12/24: Patient evaluated today. Vital signs are stable. No new complaints today. Labs today show hemoglobin 11.7, platelet count 492, sodium 138. Review of systems: Pertinent positives and negatives as discussed in HPI, a complete review of systems was performed and all other systems are negative. Vitals: Signs Reviewed Physical examination: General: nontoxic, no distress, appears at stated age, Thin appearing Derm: warm, dry, intact Head: atraumatic, normocephalic, symmetric Eyes: EOMI, anicteric sclera Mouth: no lip lesion, mucus membranes moist Cardiovascular: S1 S2 reg, no murmur Lungs: CTA bilateral, no rhonchi, no rales, no accessory muscle use Abdominal: soft, non-tender to palpataion Extremities: left foot bandaged, No cyanosis, clubbing, or pedal edema. Neuro: Alert, Oriented, Gross neurological examination did not reveal any focal deficits. Psych: well appearing, appropriate affect Assessment/Plan: Patient is a 74-year-old female who presents with generalized weakness. Patient is determined to not have decision making capacity and her daughter is pursuing guardianship. PT and OT recommend 24/7 rehab. Patient is awaiting placement. #Syncope with generalized weakness -Chest x-ray with no acute findings -CK 440, D-dimer 1.26 CT chest angiogram no findings of PE Bilateral lower extremity Doppler ultrasound no DVT -PT and OT recommend 24/7 rehab at discharge as patient is not safe home alone, she is a high fall risk, needs assist with mobility at this time as she is unsteady and decreased insight into safety deficits #. Left Foot blister Wound care consulted Recommend outpatient follow up for possible PAD #Depression #Medical decision making capacity #Failure to thrive, BMI 16.8 with Starvation ketosis Patient does not have decision-making capacity, daughter pursuing guardianship Remeron 7.5 mg nightly #ZORA due to dehydration, resolved Given 2.5 L normal saline Continue to monitor BMP #Leukocytosis, likely reactive, resolved Given Rocephin Chest x-ray and UA negative for infectious source Blood culture pending, procalcitonin 0.12 Monitor CBC #Hypothyroidism - Continue Synthroid F: None E: Replete as required N: Heart healthy diet GI prophylaxis: Famotidine 20 mg p.o. daily Attestation I have seen and examined this patient with my resident , discussed the same with the resident/GEORGINA, and agree with the dictator's assessment and plan as written Dr. Ilir berg Objective - Vital Signs Vital signs: Vital Signs Temp 99.0 F 09/12/24 01:00 Pulse 97 09/12/24 01:00 Resp 18 09/12/24 01:00 BP 103/61 09/12/24 01:00 Pulse Ox 97 09/12/24 08:45 FiO2 Intake & Output 09/11/24 09/12/24 09/12/24 18:59 06:59 18:59 Intake Total 550 540 Balance 550 540 Intake: Oral 550 540 Other: Voiding Method Toilet Toilet Diaper Diaper # Voids 1 3 # Bowel Movements 1 - Labs CBC & Chem 7: 09/12/24 05:38 09/12/24 05:38 Labs: Abnormal Lab Results - Last 24 Hours (Table) 09/11/24 09/11/24 09/11/24 Range/Units 05:04 05:04 16:23 MCHC 31.4 L (32.0-37.0) g/dL Plt Count 495 H (140-440) X 10*3/uL BUN/Creatinine Ratio 9.80 L (12.00-20.00) Ratio POC Glucose (mg/dL) 119 H (70-110) mg/dL 09/11/24 Range/Units 19:48 MCHC (32.0-37.0) g/dL Plt Count (140-440) X 10*3/uL BUN/Creatinine Ratio (12.00-20.00) Ratio POC Glucose (mg/dL) 128 H (70-110) mg/dL
[2024-09-12 16:57] LABS: Glucose,Whole Blood 96 mg/dL (70-110)
[2024-09-12 20:13] LABS: Glucose,Whole Blood 125 mg/dL (70-110)
[2024-09-13 06:31] LABS: Glucose,Whole Blood 126 mg/dL (70-110)
[2024-09-13 09:55] LABS: HCT 37.5 % (37.2-46.3); HGB 12.2 g/dL (12.0-15.0); MCH 28.2 pg (27.0-32.0); MCHC 32.5 g/dL (32.0-37.0); MCV 86.8 FL (80.0-97.0); Mean Platelet Volume 9.8 FL (9.5-12.2); NRBC Per 100 WBC 0 X 10*3/uL (0.00-0.01); Platelet Count 534 X 10*3/uL (140-440); RBC 4.32 X 10*6/uL (4.10-5.20); WBC 14.19 X 10*3/uL (4.50-10.00)
[2024-09-13 10:07] LABS: BUN/Creat Ratio 24.38 Ratio (12.00-20.00); Blood Urea Nitrogen 19.5 mg/dL (9.0-27.0); Calcium 9.7 mg/dL (8.7-10.3); Carbon Dioxide 23.6 mmol/L (21.6-31.8); Chloride 96 mmol/L (96-109); Glucose 123 mg/dL (70-110); Potassium 4.9 mmol/L (3.5-5.5); Sodium 134 mmol/L (135-145)
[2024-09-13 11:20] LABS: Glucose,Whole Blood 129 mg/dL (70-110)
--- NOTE | 2024-09-13 12:54 | P.PN ---
Subjective Progress Note Date: 09/13/24 Principal diagnosis: Hospital course: Patient is a 74-year-old female who presents with fall. Patient states while at home she had tripped over her dog. She states that she has been in bed for the last 1 week. She states she has had poor appetite and low dietary intake. She is unclear as to why she has stayed in bed, but states that she has no family visiting her regularly. Family in room states that she has living situation with feces throughout home. Patient has no stated complaints at this time. Patient reports absence of fever, chills, chest pain, palpitations, diaphoresis, dyspnea, cough, nausea, vomiting, constipation, diarrhea, abdominal pain, weakness, dizziness, headache, and dysuria. Labs in ER significant for WBC 13.1, hemoglobin 16.6, platelets 521, sodium 145, potassium 4.5, bicarb 19, BUN 61, creatinine 1.44, glucose of 136, lactic acid 3.6 => 1.2 troponin negative, TSH 6.1, UA significant for cloudy appearance, trace protein, trace ketones, hyaline casts. EKG done in the ER independently interpreted showed sinus tachycardia heart rate of 122, no ST segment elevation or depression seen, no T-wave inversions seen. Chest x-ray done independently interpreted in the ER showed no acute cardiopulmonary findings. 09/05/2024 Patient seen and examined at bedside. No acute events overnight. Patient assessed by psychiatry and she does not have decision-making capacity at this time, daughter will pursue guardianship. Begin Remeron 7.5 mg for depression at bedtime. Today's labs significant for WBC 8.3, hemoglobin 11.7, sodium 151, BUN 32, AST 60, ALT 48. 09/05/2024 Patient seen and examined at bedside. No acute events overnight. CT brain completed with no acute intracranial process. Daughter is pursuing gu ardianship. Labs today remarkable for potassium 3.4, BUN 20, glucose 63. 09/07. Patient seen and examined. No acute issues overnight. Vital signs stable 09/08/24: Patient evaluated at bedside today. No acute events overnight. Vital signs stable. Patient mentions feeling better today. Labs today show BUN 18.3, creatinine 0.7, potassium 3.8. 09/09/24: Patient examined today. No acute events overnight. No new complaints. Labs today show hemoglobin 10.8, creatinine 0.9, WBC 6.92. 09/10/24: Patient evaluated at bedside. No new complaints. Labs today show hemoglobin 10.9, potassium 4.1, creatinine 0.9. 09/11/24: Patient seen and examined. Vital signs are stable. She complains of a b raissa on her left foot. She reports seeing a grinder watch parts a couple years ago, when they had to take her nails out. Labs today show WBC 8.56, hemoglobin 12.3, potassium 4.8, platelet count 495. 09/12/24: Patient evaluated today. Vital signs are stable. No new complaints today. Labs today show hemoglobin 11.7, platelet count 492, sodium 138. 09/13/24: Patient examined at bedside. Vital signs are stable. No acute events overnight. Labs today show WBC 14.19, sodium 134, anion gap 14.4. Review of systems: Pertinent positives and negatives as discussed in HPI, a complete review of systems was performed and all other systems are negative. Vitals: Signs Reviewed Physical examination: General: nontoxic, no distress, appears at stated age, Thin appearing Derm: warm, dry, intact Head: atraumatic, normocephalic, symmetric Eyes: EOMI, anicteric sclera Mouth: no lip lesion, mucus membranes moist Cardiovascular: S1 S2 reg, no murmur Lungs: CTA bilateral, no rhonchi, no rales, no accessory muscle use Abdominal: soft, non-tender to palpataion Extremities: left foot bandaged, No cyanosis, clubbing, or pedal edema. Neuro: Alert, Oriented, Gross neurological examination did not reveal any focal deficits. Psych: well appearing, appropriate affect Assessment/Plan: Patient is a 74-year-old female who presents with generalized weakness. Patient is determined to not have decision making capacity and her daughter is pursuing guardianship. PT and OT recommend 24/7 rehab. Patient is awaiting placement. #Syncope with generalized weakness -Chest x-ray with no acute findings -CK 440, D-dimer 1.26 CT chest angiogram no findings of PE Bilateral lower extremity Doppler ultrasound no DVT -PT and OT recommend 24/7 rehab at discharge as patient is not safe home alone, she is a high fall risk, needs assist with mobility at this time as she is unsteady and decreased insight into safety deficits #. Left Foot blister -Wound care consulted -Recommend outpatient follow up for possible PAD #Depression #Medical decision making capacity #Failure to thrive, BMI 16.8 with Starvation ketosis Patient does not have decision-making capacity, daughter pursuing guardianship Remeron 7.5 mg nightly #ZORA due to dehydration, resolved Given 2.5 L normal saline Continue to monitor BMP #Leukocytosis, likely reactive, resolved Given Rocephin Chest x-ray and UA negative for infectious source Blood culture pending, procalcitonin 0.12 Monitor CBC #Hypothyroidism - Continue Synthroid F: None E: Replete as required N: Heart healthy diet GI prophylaxis: Famotidine 20 mg p.o. daily Attestation I have seen and examined this patient with my resident , discussed the same with the resident/GEORGINA, and agree with the dictator's assessment and plan as written Dr. Ilir berg Objective - Vital Signs Vital signs: Vital Signs Temp 98.5 F 09/13/24 00:25 Pulse 99 09/13/24 00:25 Resp 20 09/13/24 00:25 BP 131/76 09/13/24 00:25 Pulse Ox 98 09/13/24 00:25 FiO2 Intake & Output 09/12/24 09/13/24 09/13/24 18:59 06:59 18:59 Intake Total 320 240 Balance 320 240 Intake: Oral 320 240 Other: Voiding Method Toilet Toilet Diaper Diaper # Voids 3 3 - Labs CBC & Chem 7: 09/13/24 06:06 09/13/24 06:06 Labs: Abnormal Lab Results - Last 24 Hours (Table) 09/12/24 09/12/24 09/12/24 Range/Units 05:38 05:38 11:51 Hgb 11.7 L (12.0-15.0) g/dL Hct 35.4 L (37.2-46.3) % Plt Count 492 H (140-440) X 10*3/uL MPV 9.4 L (9.5-12.2) FL Anion Gap 12.30 H (4.00-12.00) mmol/L POC Glucose (mg/dL) 119 H (70-110) mg/dL 09/12/24 09/13/24 Range/Units 20:11 06:30 Hgb (12.0-15.0) g/dL Hct (37.2-46.3) % Plt Count (140-440) X 10*3/uL MPV (9.5-12.2) FL Anion Gap (4.00-12.00) mmol/L POC Glucose (mg/dL) 125 H 126 H (70-110) mg/dL
[2024-09-13 16:47] LABS: Glucose,Whole Blood 108 mg/dL (70-110)
[2024-09-13 21:13] LABS: Glucose,Whole Blood 130 mg/dL (70-110)
[2024-09-14 06:39] LABS: Glucose,Whole Blood 101 mg/dL (70-110)
[2024-09-14 09:51] LABS: HCT 37.4 % (37.2-46.3); HGB 12.1 g/dL (12.0-15.0); MCH 28.7 pg (27.0-32.0); MCHC 32.4 g/dL (32.0-37.0); MCV 88.6 FL (80.0-97.0); Mean Platelet Volume 9.9 FL (9.5-12.2); NRBC Per 100 WBC 0 X 10*3/uL (0.00-0.01); Platelet Count 535 X 10*3/uL (140-440); RBC 4.22 X 10*6/uL (4.10-5.20); RDW 13.6 % (11.5-14.5); WBC 10.44 X 10*3/uL (4.50-10.00)
[2024-09-14 10:23] LABS: BUN/Creat Ratio 17.44 Ratio (12.00-20.00); Blood Urea Nitrogen 15.7 mg/dL (9.0-27.0); Calcium 9.4 mg/dL (8.7-10.3); Carbon Dioxide 24.9 mmol/L (21.6-31.8); Chloride 100 mmol/L (96-109); Glucose 102 mg/dL (70-110); Potassium 4.3 mmol/L (3.5-5.5); Sodium 138 mmol/L (135-145)
[2024-09-14 11:28] LABS: Glucose,Whole Blood 113 mg/dL (70-110)
--- NOTE | 2024-09-14 13:12 | P.PN ---
Subjective Progress Note Date: 09/14/24 Principal diagnosis: Hospital course: Patient is a 74-year-old female who presents with fall. Patient states while at home she had tripped over her dog. She states that she has been in bed for the last 1 week. She states she has had poor appetite and low dietary intake. She is unclear as to why she has stayed in bed, but states that she has no family visiting her regularly. Family in room states that she has living situation with feces throughout home. Patient has no stated complaints at this time. Patient reports absence of fever, chills, chest pain, palpitations, diaphoresis, dyspnea, cough, nausea, vomiting, constipation, diarrhea, abdominal pain, weakness, dizziness, headache, and dysuria. Labs in ER significant for WBC 13.1, hemoglobin 16.6, platelets 521, sodium 145, potassium 4.5, bicarb 19, BUN 61, creatinine 1.44, glucose of 136, lactic acid 3.6 => 1.2 troponin negative, TSH 6.1, UA significant for cloudy appearance, trace protein, trace ketones, hyaline casts. EKG done in the ER independently interpreted showed sinus tachycardia heart rate of 122, no ST segment elevation or depression seen, no T-wave inversions seen. Chest x-ray done independently interpreted in the ER showed no acute cardiopulmonary findings. 09/05/2024 Patient seen and examined at bedside. No acute events overnight. Patient assessed by psychiatry and she does not have decision-making capacity at this time, daughter will pursue guardianship. Begin Remeron 7.5 mg for depression at bedtime. Today's labs significant for WBC 8.3, hemoglobin 11.7, sodium 151, BUN 32, AST 60, ALT 48. 09/05/2024 Patient seen and examined at bedside. No acute events overnight. CT brain completed with no acute intracranial process. Daughter is pursuing gu ardianship. Labs today remarkable for potassium 3.4, BUN 20, glucose 63. 09/07. Patient seen and examined. No acute issues overnight. Vital signs stable 09/08/24: Patient evaluated at bedside today. No acute events overnight. Vital signs stable. Patient mentions feeling better today. Labs today show BUN 18.3, creatinine 0.7, potassium 3.8. 09/09/24: Patient examined today. No acute events overnight. No new complaints. Labs today show hemoglobin 10.8, creatinine 0.9, WBC 6.92. 09/10/24: Patient evaluated at bedside. No new complaints. Labs today show hemoglobin 10.9, potassium 4.1, creatinine 0.9. 09/11/24: Patient seen and examined. Vital signs are stable. She complains of a b raissa on her left foot. She reports seeing a yeast supervisor a couple years ago, when they had to take her nails out. Labs today show WBC 8.56, hemoglobin 12.3, potassium 4.8, platelet count 495. 09/12/24: Patient evaluated today. Vital signs are stable. No new complaints today. Labs today show hemoglobin 11.7, platelet count 492, sodium 138. 09/13/24: Patient examined at bedside. Vital signs are stable. No acute events overnight. Labs today show WBC 14.19, sodium 134, anion gap 14.4. /. Patient seen and examined. No acute issues overnight. Review of systems: Pertinent positives and negatives as discussed in HPI, a complete review of systems was performed and all other systems are negative. Vitals: Signs Reviewed Physical examination: General: nontoxic, no distress, appears at stated age, Thin appearing Derm: warm, dry, intact Head: atraumatic, normocephalic, symmetric Eyes: EOMI, anicteric sclera Mouth: no lip lesion, mucus membranes moist Cardiovascular: S1 S2 reg, no murmur Lungs: CTA bilateral, no rhonchi, no rales, no accessory muscle use Abdominal: soft, non-tender to palpataion Extremities: left foot bandaged, No cyanosis, clubbing, or pedal edema. Neuro: Alert, Oriented, Gross neurological examination did not reveal any focal deficits. Psych: well appearing, appropriate affect Assessment/Plan: Patient is a 74-year-old female who presents with generalized weakness. Patient is determined to not have decision making capacity and her daughter is pursuing guardianship. PT and OT recommend 24/7 rehab. Patient is awaiting placement. #Syncope with generalized weakness -Chest x-ray with no acute findings -CK 440, D-dimer 1.26 CT chest angiogram no findings of PE Bilateral lower extremity Doppler ultrasound no DVT -PT and OT recommend 24/7 rehab at discharge as patient is not safe home alone, she is a high fall risk, needs assist with mobility at this time as she is unsteady and decreased insight into safety deficits #. Left Foot blister -Wound care consulted -Recommend outpatient follow up for possible PAD #Depression #Medical decision making capacity #Failure to thrive, BMI 16.8 with Starvation ketosis Patient does not have decision-making capacity, daughter pursuing guardianship Remeron 7.5 mg nightly #ZORA due to dehydration, resolved #Leukocytosis, likely reactive, resolved #Hypothyroidism - Continue Synthroid Objective - Vital Signs Vital signs: Vital Signs Temp 98.5 F 09/14/24 07:06 Pulse 95 09/14/24 07:06 Resp 18 09/14/24 07:06 BP 107/67 09/14/24 07:06 Pulse Ox 95 09/14/24 07:06 FiO2 Intake & Output 09/13/24 09/14/24 09/14/24 18:59 06:59 18:59 Other: Voiding Method Toilet Diaper Incontinent # Voids 2 3 1 - Labs CBC & Chem 7: 09/14/24 02:33 09/14/24 02:33 Labs: Abnormal Lab Results - Last 24 Hours (Table) 09/13/24 09/14/24 09/14/24 Range/Units 21:11 02:33 02:33 WBC 10.44 H (4.50-10.00) X 10*3/uL Plt Count 535 H (140-440) X 10*3/uL Anion Gap 13.10 H (4.00-12.00) mmol/L POC Glucose (mg/dL) 130 H (70-110) mg/dL 09/14/24 Range/Units 11:27 WBC (4.50-10.00) X 10*3/uL Plt Count (140-440) X 10*3/uL Anion Gap (4.00-12.00) mmol/L POC Glucose (mg/dL) 113 H (70-110) mg/dL
[2024-09-14 16:55] LABS: Glucose,Whole Blood 107 mg/dL (70-110)
[2024-09-14 21:06] LABS: Glucose,Whole Blood 168 mg/dL (70-110)
[2024-09-15 06:25] LABS: Glucose,Whole Blood 91 mg/dL (70-110)
[2024-09-15 08:44] LABS: BUN/Creat Ratio 21.33 Ratio (12.00-20.00); Blood Urea Nitrogen 19.2 mg/dL (9.0-27.0); Calcium 9.2 mg/dL (8.7-10.3); Carbon Dioxide 27.7 mmol/L (21.6-31.8); Chloride 101 mmol/L (96-109); Glucose 97 mg/dL (70-110); Potassium 4.6 mmol/L (3.5-5.5); Sodium 139 mmol/L (135-145)
[2024-09-15 09:07] LABS: HCT 33.7 % (37.2-46.3); HGB 10.9 g/dL (12.0-15.0); MCH 28.8 pg (27.0-32.0); MCHC 32.3 g/dL (32.0-37.0); MCV 89.2 FL (80.0-97.0); Mean Platelet Volume 9.7 FL (9.5-12.2); NRBC Per 100 WBC 0 X 10*3/uL (0.00-0.01); Platelet Count 467 X 10*3/uL (140-440); RBC 3.78 X 10*6/uL (4.10-5.20); RDW 13.4 % (11.5-14.5); WBC 7.94 X 10*3/uL (4.50-10.00)
[2024-09-15 12:24] LABS: Glucose,Whole Blood 101 mg/dL (70-110)
[2024-09-15 15:54] LABS: Hepatitis A Antibody IgM Nonreactive (Nonreactive); Hepatitis B Core IgM Nonreactive (Nonreactive); Hepatitis B Surface Antigen Nonreactive (Nonreactive); Hepatitis C IgG Antibody Nonreactive (Nonreactive)
[2024-09-15 16:06] LABS: % Iron Saturation 6.19 (12.00-45.00)
[2024-09-15 17:15] LABS: Glucose,Whole Blood 104 mg/dL (70-110)
--- NOTE | 2024-09-15 18:10 | P.PN ---
Progress Note - Text Progress Note Date: 09/15/24 Patient is a 74-year-old female who presents with fall. Patient states while at home she had tripped over her dog. She states that she has been in bed for the last 1 week. She states she has had poor appetite and low dietary intake. She is unclear as to why she has stayed in bed, but states that she has no family visiting her regularly. Family in room states that she has living situation with feces throughout home. Patient has no stated complaints at this time. Patient reports absence of fever, chills, chest pain, palpitations, diaphoresis, dyspnea, cough, nausea, vomiting, constipation, diarrhea, abdominal pain, weakness, dizziness, headache, and dysuria. Labs in ER significant for WBC 13.1, hemoglobin 16.6, platelets 521, sodium 145, potassium 4.5, bicarb 19, BUN 61, creatinine 1.44, glucose of 136, lactic acid 3.6 => 1.2 troponin negative, TSH 6.1, UA significant for cloudy appearance, trace protein, trace ketones, hyaline casts. EKG done in the ER independently interpreted showed sinus tachycardia heart rate of 122, no ST segment elevation or depression seen, no T-wave inversions seen. Chest x-ray done independently interpreted in the ER showed no acute cardiopulmonary findings. 09/05/2024 Patient seen and examined at bedside. No acute events overnight. Patient assessed by psychiatry and she does not have decision-making capacity at this time, daughter will pursue guardianship. Begin Remeron 7.5 mg for depression at bedtime. Today's labs significant for WBC 8.3, hemoglobin 11.7, sodium 151, BUN 32, AST 60, ALT 48. 09/05/2024 Patient seen and examined at bedside. No acute events overnight. CT brain completed with no acute intracranial process. Daughter is pursuing guardianship. Labs today remarkable for potassium 3.4, BUN 20, glucose 63. 09/07. Patient seen and examined. No acute issues overnight. Vital signs stable 09/08/24: Patient evaluated at bedside today. No acute events overnight. Vital signs stable. Patient mentions feeling better today. Labs today show BUN 18.3, creatinine 0.7, potassium 3.8. 09/09/24: Patient examined today. No acute events overnight. No new complaints. Labs today show hemoglobin 10.8, creatinine 0.9, WBC 6.92. 09/10/24: Patient evaluated at bedside. No new complaints. Labs today show hemoglobin 10.9, potassium 4.1, creatinine 0.9. 09/11/24: Patient seen and examined. Vital signs are stable. She complains of a blister on her left foot. She reports seeing a team sports sales associate a couple years ago, when they had to take her nails out. Labs today show WBC 8.56, hemoglobin 12.3, potassium 4.8, platelet count 495. 09/12/24: Patient evaluated today. Vital signs are stable. No new complaints today. Labs today show hemoglobin 11.7, platelet count 492, sodium 138. 09/13/24: Patient examined at bedside. Vital signs are stable. No acute events overnight. Labs today show WBC 14.19, sodium 134, anion gap 14.4. . Patient seen and examined. No acute issues overnight. September 15: Eating well. Complaining of some pain in her feet. Forgetful. Consulted speech to do full cognition evaluation. Blood work for anemia was sent out shows iron deficiency. Will order 2 units of Ferrlecit. Active Medications Acetaminophen (Acetaminophen Tab 325 Mg Tab) 650 mg PO Q6HR PRN PRN Reason: Mild Pain or Fever > 100.5 Last Admin: 09/10/24 13:11 Dose: 650 mg Hydrocodone Bitart/Acetaminophen (Hydrocodone/Apap 5-325mg 1 Each Tab) 1 each PO Q6HR PRN PRN Reason: Pain Last Admin: 09/15/24 17:48 Dose: 1 each Alprazolam (Alprazolam 0.25 Mg Tab) 0.25 mg PO BID PRN PRN Reason: Anxiety Last Admin: 09/14/24 18:36 Dose: 0.25 mg Cholecalciferol (Cholecalciferol 25 Mcg (1000 Iu) Tablet) 25 mcg PO DAILY [facility] Last Admin: 09/15/24 07:59 Dose: 25 mcg Dextrose/Water (Dextrose 50% Syringe 50 Ml) 25 ml IVP PER PROTOCOL PRN; Protocol PRN Reason: Hypoglycemia Dextrose/Water (Dextrose 50% Syringe 50 Ml) 50 ml IVP PER PROTOCOL PRN; Protocol PRN Reason: Hypoglycemia Famotidine (Famotidine 20 Mg Tab) 20 mg PO DAILY [facility] Last Admin: 09/15/24 07:59 Dose: 20 mg Levothyroxine Sodium (Levothyroxine 88 Mcg Tab) 88 mcg PO DAILY@0600 [facility] Last Admin: 09/15/24 06:36 Dose: 88 mcg Mirtazapine (Mirtazapine 15 Mg Tab) 7.5 mg PO HS [facility] Last Admin: 09/14/24 19:58 Dose: 7.5 mg Naloxone HCl (Naloxone 0.4 Mg/Ml 1 Ml Vial) 0.2 mg IV Q2M PRN PRN Reason: Opioid Reversal Sumatriptan Succinate (Sumatriptan Succinate 50 Mg Tab) 50 mg PO DAILY PRN PRN Reason: Migraine Headache Last Admin: 09/10/24 10:33 Dose: 50 mg On examination: VITAL SIGNS: [97.9, 88, 18, 96 x 62, 100% room air] GENERAL APPEARANCE: BMI 16.8, reclining in bed a bit anxious HEENT: Normal external appearance of nose and ear. Oral cavity normal EYES: Pupils equal. Conjunctiva normal. NECK: JVD not raised. Mass not palpable. RESPIRATORY: Respiratory effort normal. Lungs clear to auscultation. CARDIOVASCULAR: First and second sounds normal. No edema. ABDOMEN: Soft. Liver and spleen not palpable. No tenderness. No mass palpable. PSYCHIATRY: Patient knows that she is at [facility]. Not able to really tell me the year some trouble finding the season Musculoskeletal: Loss of muscle mass and fat. Prominent bones. INVESTIGATIONS, reviewed in the clinical context: September 15: White count 7.9 hemoglobin 10.9 platelets 467 sodium 139 potassium 4.6 creatinine 0.9 Iron 21 TIBC 3 3 9% saturation 6.19 transferrin 242 ferritin 254 vitamin B12 673 folate 8.8 Acute hepatitis screen: Negative Assessment/Plan: Patient is a 74-year-old female who presents with generalized weakness. Patient is determined to not have decision making capacity and her daughter is pursuing guardianship. PT and OT recommend / rehab. Patient is awaiting placement. 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 Left Foot blister -Wound care consulted -Recommend outpatient follow up for possible PAD -Depression, NOS Seen by psychiatrist Dr. Pepper Remeron 7.5 mg nightly started # Does not have medical decision making capacity, due to cognitive impairment Daughter is pursuing guardianship, social work on the case #Failure to thrive, BMI 16.8 with Starvation ketosis Patient does not have decision-making capacity, daughter pursuing guardianship Remeron 7.5 mg nightly #ZORA due to dehydration, resolved #Leukocytosis, likely reactive, resolved #Hypothyroidism - Continue Synthroid -Severe protein calorie malnutrition, BMI 16.8 Add Ensure Enlive 3 times daily Consult dietitian -Full code
[2024-09-15 19:56] LABS: Glucose,Whole Blood 121 mg/dL (70-110)
[2024-09-15] MEDS: SODIUM FERRIC GLUCONAT-SUCROSE 125 MG in SODIUM CHLORIDE 0.9% 100 ML IVPB SCH (20:16)
[2024-09-16 06:29] LABS: Glucose,Whole Blood 94 mg/dL (70-110)
[2024-09-16 11:55] LABS: Glucose,Whole Blood 98 mg/dL (70-110)
[2024-09-16] MEDS: GABAPENTIN 100 MG CAP PO SCH (12:43)
--- NOTE | 2024-09-16 15:48 | P.PN ---
Progress Note - Text Progress Note Date: 09/16/24 Patient is a 74-year-old female who presents with fall. Patient states while at home she had tripped over her dog. She states that she has been in bed for the last 1 week. She states she has had poor appetite and low dietary intake. She is unclear as to why she has stayed in bed, but states that she has no family visiting her regularly. Family in room states that she has living situation with feces throughout home. Patient has no stated complaints at this time. Patient reports absence of fever, chills, chest pain, palpitations, diaphoresis, dyspnea, cough, nausea, vomiting, constipation, diarrhea, abdominal pain, weakness, dizziness, headache, and dysuria. Labs in ER significant for WBC 13.1, hemoglobin 16.6, platelets 521, sodium 145, potassium 4.5, bicarb 19, BUN 61, creatinine 1.44, glucose of 136, lactic acid 3.6 => 1.2 troponin negative, TSH 6.1, UA significant for cloudy appearance, trace protein, trace ketones, hyaline casts. EKG done in the ER independently interpreted showed sinus tachycardia heart rate of 122, no ST segment elevation or depression seen, no T-wave inversions seen. Chest x-ray done independently interpreted in the ER showed no acute cardiopulmonary findings. 09/05/2024 Patient seen and examined at bedside. No acute events overnight. Patient assessed by psychiatry and she does not have decision-making capacity at this time, daughter will pursue guardianship. Begin Remeron 7.5 mg for depression at bedtime. Today's labs significant for WBC 8.3, hemoglobin 11.7, sodium 151, BUN 32, AST 60, ALT 48. 09/05/2024 Patient seen and examined at bedside. No acute events overnight. CT brain completed with no acute intracranial process. Daughter is pursuing guardianship. Labs today remarkable for potassium 3.4, BUN 20, glucose 63. 09/07. Patient seen and examined. No acute issues overnight. Vital signs stable 09/08/24: Patient evaluated at bedside today. No acute events overnight. Vital signs stable. Patient mentions feeling better today. Labs today show BUN 18.3, creatinine 0.7, potassium 3.8. 09/09/24: Patient examined today. No acute events overnight. No new complaints. Labs today show hemoglobin 10.8, creatinine 0.9, WBC 6.92. 09/10/24: Patient evaluated at bedside. No new complaints. Labs today show hemoglobin 10.9, potassium 4.1, creatinine 0.9. 09/11/24: Patient seen and examined. Vital signs are stable. She complains of a blister on her left foot. She reports seeing a tax agent a couple years ago, when they had to take her nails out. Labs today show WBC 8.56, hemoglobin 12.3, potassium 4.8, platelet count 495. 09/12/24: Patient evaluated today. Vital signs are stable. No new complaints today. Labs today show hemoglobin 11.7, platelet count 492, sodium 138. 09/13/24: Patient examined at bedside. Vital signs are stable. No acute events overnight. Labs today show WBC 14.19, sodium 134, anion gap 14.4. . Patient seen and examined. No acute issues overnight. September 15: Eating well. Complaining of some pain in her feet. Forgetful. Consulted speech to do full cognition evaluation. Blood work for anemia was sent out shows iron deficiency. Will order 2 units of Ferrlecit. September 16: Still complaining of pain in the lower extremity doty to the feet. Possible neuropathy. Will add Neurontin 100 twice daily to see if that helps. Getting IV Ferrlecit. dental laboratory worker looking into discharge planning. Will need outpatient neurology workup for more cognition evaluation Active Medications Acetaminophen (Acetaminophen Tab 325 Mg Tab) 650 mg PO Q6HR PRN PRN Reason: Mild Pain or Fever > 100.5 Last Admin: 09/15/24 20:15 Dose: 650 mg Alprazolam (Alprazolam 0.25 Mg Tab) 0.25 mg PO BID PRN PRN Reason: Anxiety Last Admin: 09/16/24 12:43 Dose: 0.25 mg Cholecalciferol (Cholecalciferol 25 Mcg (1000 Iu) Tablet) 25 mcg PO DAILY REPLACED BY [facility] Last Admin: 09/16/24 08:00 Dose: 25 mcg Dextrose/Water (Dextrose 50% Syringe 50 Ml) 25 ml IVP PER PROTOCOL PRN; Protocol PRN Reason: Hypoglycemia Dextrose/Water (Dextrose 50% Syringe 50 Ml) 50 ml IVP PER PROTOCOL PRN; Protocol PRN Reason: Hypoglycemia Famotidine (Famotidine 20 Mg Tab) 20 mg PO DAILY REPLACED BY [facility] Last Admin: 09/16/24 08:00 Dose: 20 mg Gabapentin (Gabapentin 100 Mg Cap) 100 mg PO BID REPLACED BY [facility] Last Admin: 09/16/24 12:43 Dose: 100 mg Ferric Sodium Gluconate 125 mg (/ Sodium Chloride) 110 mls @ 100 mls/hr IVPB DAILY REPLACED BY [facility] Stop: 09/17/24 10:05 Last Admin: 09/16/24 11:29 Dose: 100 mls/hr Levothyroxine Sodium (Levothyroxine 88 Mcg Tab) 88 mcg PO DAILY@0600 REPLACED BY [facility] Last Admin: 09/16/24 05:36 Dose: 88 mcg Mirtazapine (Mirtazapine 15 Mg Tab) 7.5 mg PO HS REPLACED BY [facility] Last Admin: 09/15/24 20:16 Dose: 7.5 mg Naloxone HCl (Naloxone 0.4 Mg/Ml 1 Ml Vial) 0.2 mg IV Q2M PRN PRN Reason: Opioid Reversal Sumatriptan Succinate (Sumatriptan Succinate 50 Mg Tab) 50 mg PO DAILY PRN PRN Reason: Migraine Headache Last Admin: 09/10/24 10:33 Dose: 50 mg On examination: VITAL SIGNS: 97.5, 89, 17, 96 x 59, 100% room air GENERAL APPEARANCE: BMI 16.8, in bed a bit anxious HEENT: Normal external appearance of nose and ear. Oral cavity normal EYES: Pupils equal. Conjunctiva normal. NECK: JVD not raised. Mass not palpable. RESPIRATORY: Respiratory effort normal. Lungs clear to auscultation. CARDIOVASCULAR: First and second sounds normal. No edema. ABDOMEN: Soft. Liver and spleen not palpable. No tenderness. No mass palpable. PSYCHIATRY: Sometimes forgetful during conversation Musculoskeletal: Loss of muscle mass and fat. Prominent bones. INVESTIGATIONS, reviewed in the clinical context: September 15: White count 7.9 hemoglobin 10.9 platelets 467 sodium 139 potassium 4.6 creatinine 0.9 Iron 21 TIBC 3 3 9% saturation 6.19 transferrin 242 ferritin 254 vitamin B12 673 folate 8.8 Acute hepatitis screen: Negative Assessment/Plan: Patient is a 74-year-old female who presents with generalized weakness. Patient is determined to not have decision making capacity and her daughter is pursuing guardianship. PT and OT recommend 24/7 rehab. Patient is awaiting placement. 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 Further evaluation outpatient by neurology -Iron deficiency anemia IV Ferrlecit given. Add oral iron #. Left Foot blister -Wound care consulted -Recommend outpatient follow up for possible PAD -Depression, NOS Seen by psychiatrist Dr. Pepper Remeron 7.5 mg nightly started # Does not have medical decision making capacity, due to cognitive impairment Daughter is pursuing guardianship, social work on the case #ZORA due to dehydration, resolved #Leukocytosis, likely reactive, resolved #Hypothyroidism - Continue Synthroid -Severe protein calorie malnutrition, BMI 16.8 Add Ensure Enlive 3 times daily Consult dietitian -Full code manager software looking into disposition. Outpatient neurology workup for further cognitive evaluation.
[2024-09-16 17:15] LABS: Glucose,Whole Blood 105 mg/dL (70-110)
[2024-09-16] MEDS: FERROUS SULFATE 325 MG TAB PO SCH (17:43)
[2024-09-16 20:30] LABS: Glucose,Whole Blood 140 mg/dL (70-110)
[2024-09-17 06:18] LABS: Glucose,Whole Blood 100 mg/dL (70-110)
[2024-09-17 11:49] LABS: Glucose,Whole Blood 111 mg/dL (70-110)
[2024-09-17 16:48] LABS: Glucose,Whole Blood 105 mg/dL (70-110)
--- NOTE | 2024-09-17 19:42 | P.PN ---
Progress Note - Text Progress Note Date: 09/17/24 Patient is a 74-year-old female who presents with fall. Patient states while at home she had tripped over her dog. She states that she has been in bed for the last 1 week. She states she has had poor appetite and low dietary intake. She is unclear as to why she has stayed in bed, but states that she has no family visiting her regularly. Family in room states that she has living situation with feces throughout home. Patient has no stated complaints at this time. Patient reports absence of fever, chills, chest pain, palpitations, diaphoresis, dyspnea, cough, nausea, vomiting, constipation, diarrhea, abdominal pain, weakness, dizziness, headache, and dysuria. Labs in ER significant for WBC 13.1, hemoglobin 16.6, platelets 521, sodium 145, potassium 4.5, bicarb 19, BUN 61, creatinine 1.44, glucose of 136, lactic acid 3.6 => 1.2 troponin negative, TSH 6.1, UA significant for cloudy appearance, trace protein, trace ketones, hyaline casts. EKG done in the ER independently interpreted showed sinus tachycardia heart rate of 122, no ST segment elevation or depression seen, no T-wave inversions seen. Chest x-ray done independently interpreted in the ER showed no acute cardiopulmonary findings. 09/05/2024 Patient seen and examined at bedside. No acute events overnight. Patient assessed by psychiatry and she does not have decision-making capacity at this time, daughter will pursue guardianship. Begin Remeron 7.5 mg for depression at bedtime. Today's labs significant for WBC 8.3, hemoglobin 11.7, sodium 151, BUN 32, AST 60, ALT 48. 09/05/2024 Patient seen and examined at bedside. No acute events overnight. CT brain completed with no acute intracranial process. Daughter is pursuing guardianship. Labs today remarkable for potassium 3.4, BUN 20, glucose 63. 09/07. Patient seen and examined. No acute issues overnight. Vital signs stable 09/08/24: Patient evaluated at bedside today. No acute events overnight. Vital signs stable. Patient mentions feeling better today. Labs today show BUN 18.3, creatinine 0.7, potassium 3.8. 09/09/24: Patient examined today. No acute events overnight. No new complaints. Labs today show hemoglobin 10.8, creatinine 0.9, WBC 6.92. 09/10/24: Patient evaluated at bedside. No new complaints. Labs today show hemoglobin 10.9, potassium 4.1, creatinine 0.9. 09/11/24: Patient seen and examined. Vital signs are stable. She complains of a blister on her left foot. She reports seeing a steel detailer a couple years ago, when they had to take her nails out. Labs today show WBC 8.56, hemoglobin 12.3, potassium 4.8, platelet count 495. 09/12/24: Patient evaluated today. Vital signs are stable. No new complaints today. Labs today show hemoglobin 11.7, platelet count 492, sodium 138. 09/13/24: Patient examined at bedside. Vital signs are stable. No acute events overnight. Labs today show WBC 14.19, sodium 134, anion gap 14.4. . Patient seen and examined. No acute issues overnight. September 15: Eating well. Complaining of some pain in her feet. Forgetful. Consulted speech to do full cognition evaluation. Blood work for anemia was sent out shows iron deficiency. Will order 2 units of Ferrlecit. September 16: Still complaining of pain in the lower extremity doty to the feet. Possible neuropathy. Will add Neurontin 100 twice daily to see if that helps. Getting IV Ferrlecit. hospital tray service worker looking into discharge planning. Will need outpatient neurology workup for more cognition evaluation September 17: Lower extremity pain much better with Neurontin. Tolerating diet. Spoke to case worker Sera. Looking into rehab. Active Medications Acetaminophen (Acetaminophen Tab 325 Mg Tab) 650 mg PO Q6HR PRN PRN Reason: Mild Pain or Fever > 100.5 Last Admin: 09/17/24 18:07 Dose: 325 mg Alprazolam (Alprazolam 0.25 Mg Tab) 0.25 mg PO BID PRN PRN Reason: Anxiety Last Admin: 09/16/24 12:43 Dose: 0.25 mg Cholecalciferol (Cholecalciferol 25 Mcg (1000 Iu) Tablet) 25 mcg PO DAILY [facility] Last Admin: 09/17/24 08:20 Dose: 25 mcg Dextrose/Water (Dextrose 50% Syringe 50 Ml) 25 ml IVP PER PROTOCOL PRN; Protocol PRN Reason: Hypoglycemia Dextrose/Water (Dextrose 50% Syringe 50 Ml) 50 ml IVP PER PROTOCOL PRN; Protocol PRN Reason: Hypoglycemia Famotidine (Famotidine 20 Mg Tab) 20 mg PO DAILY [facility] Last Admin: 09/17/24 08:20 Dose: 20 mg Ferrous Sulfate (Ferrous Sulfate 325 Mg Tab) 325 mg PO W/LUNCH [facility] Last Admin: 09/17/24 12:09 Dose: 325 mg Gabapentin (Gabapentin 100 Mg Cap) 100 mg PO BID [facility] Last Admin: 09/17/24 08:19 Dose: 100 mg Levothyroxine Sodium (Levothyroxine 88 Mcg Tab) 88 mcg PO DAILY@0600 [facility] Last Admin: 09/17/24 06:05 Dose: 88 mcg Mirtazapine (Mirtazapine 15 Mg Tab) 7.5 mg PO HS [facility] Last Admin: 09/16/24 22:22 Dose: 7.5 mg Naloxone HCl (Naloxone 0.4 Mg/Ml 1 Ml Vial) 0.2 mg IV Q2M PRN PRN Reason: Opioid Reversal Sumatriptan Succinate (Sumatriptan Succinate 50 Mg Tab) 50 mg PO DAILY PRN PRN Reason: Migraine Headache Last Admin: 09/10/24 10:33 Dose: 50 mg On examination: VITAL SIGNS: 98, 97, 16, 98 x 63, 97% room air GENERAL APPEARANCE: BMI 16.8, in a recliner, comfortable s HEENT: Normal external appearance of nose and ear. Oral cavity normal EYES: Pupils equal. Conjunctiva normal. NECK: JVD not raised. Mass not palpable. RESPIRATORY: Respiratory effort normal. Lungs clear to auscultation. CARDIOVASCULAR: First and second sounds normal. No edema. ABDOMEN: Soft. Liver and spleen not palpable. No tenderness. No mass palpable. PSYCHIATRY: Sometimes forgetful otherwise able to answer questions Musculoskeletal: Loss of muscle mass and fat. Prominent bones. INVESTIGATIONS, reviewed in the clinical context: September 15: White count 7.9 hemoglobin 10.9 platelets 467 sodium 139 potassium 4.6 creatinine 0.9 Iron 21 TIBC 3 3 9% saturation 6.19 transferrin 242 ferritin 254 vitamin B12 673 folate 8.8 Acute hepatitis screen: Negative Assessment/Plan: Patient is a 74-year-old female who presents with generalized weakness. Patient is determined to not have decision making capacity and her daughter is pursuing guardianship. PT and OT recommend 24/7 rehab. Patient is awaiting placement. 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 Further evaluation outpatient by neurology -Iron deficiency anemia IV Ferrlecit given. Add oral iron #. Left Foot blister -Wound care consulted -Recommend outpatient follow up for possible PAD -Depression, NOS Seen by psychiatrist Dr. Pepper Remeron 7.5 mg nightly started # Does not have medical decision making capacity, due to cognitive impairment Daughter is pursuing guardianship, social work on the case #ZORA due to dehydration, resolved #Leukocytosis, likely reactive, resolved #Hypothyroidism - Continue Synthroid -Severe protein calorie malnutrition, BMI 16.8 Add Ensure Enlive 3 times daily Consult dietitian -Full code Continue current medication. Oral intake better. golf course manager looking into disposition./Rehab.
[2024-09-17 21:28] LABS: Glucose,Whole Blood 113 mg/dL (70-110)
[2024-09-18 06:26] LABS: Glucose,Whole Blood 95 mg/dL (70-110)
[2024-09-18 11:29] LABS: Glucose,Whole Blood 100 mg/dL (70-110)
--- NOTE | 2024-09-18 14:17 | P.PN ---
Progress Note - Text Progress Note Date: 09/18/24 IDENTIFYING DATA: Patient is a 64-year-old female, living alone REASON FOR CONSULT: MDD INTERVAL HISTORY: Patient seen and evaluated. She was A&Ox2, not date/year/month. She reports improvements in terms of sleep and appetite with the low-dose Remeron and appears to be tolerating this well overall. Denied any SI/HI today. Recommendation is for patient to go to [facility] given her presentation on admission however patient continues to be unable to explicitly communicate or appreciate the risks/benefits and alternatives to going to [facility] versus home. When asked about the potential risks with going home, she stated none despite being told her initial weakness and being found in feces. Patient was unable to elicit any benefits at all to going to [facility], just continuously stating "I do not need to go". Patient was exhibiting forgetfulness during conversation, often being tangential and getting off topic. MENTAL STATUS EXAM: General Appearance: Patient appears to be stated age. Patient appears to have fair hygiene and grooming wearing hospital gown with fair eye contact. Behavior: Patient is calmly lying in bed without any agitated behavior. Speech: Normal rate rhythm volume and tone Mood/Affect: Mood described as "okay" and affect is flat, mood congruent Suicidality/Homicidality: Patient denies any suicidal homicidal ideations Perceptions: There are no perceptual abnormalities Though content/process: Patient was fixated on issues with her family, tangential thoughts Judgment and insight: Poor IMPRESSIONS: Depression, unspecified Unspecified neurocognitive disorder PLAN: -At this time patient DOES NOT meet criteria for inpatient psychiatric admission. -Patient DOES NOT have decision making capacity at this time and is unable to reason through and communicate/appreciate the risks, benefits and alternatives to treatment. -Would recommend the following medication changes/additions: Continue Remeron 7.5 mg at bedtime for depression. Paperwork signed today for DPOA as patient is unable to care for herself at this time -call worker to provide patient with outpatient mental health/psychiatry resources for appropriate follow up upon discharge -Psychiatry will sign off at this time -Please contact with any questions.
--- NOTE | 2024-09-18 15:25 | P.PN ---
Progress Note - Text Progress Note Date: 09/18/24 Patient is a 74-year-old female who presents with fall. Patient states while at home she had tripped over her dog. She states that she has been in bed for the last 1 week. She states she has had poor appetite and low dietary intake. She is unclear as to why she has stayed in bed, but states that she has no family visiting her regularly. Family in room states that she has living situation with feces throughout home. Patient has no stated complaints at this time. Patient reports absence of fever, chills, chest pain, palpitations, diaphoresis, dyspnea, cough, nausea, vomiting, constipation, diarrhea, abdominal pain, weakness, dizziness, headache, and dysuria. Labs in ER significant for WBC 13.1, hemoglobin 16.6, platelets 521, sodium 145, potassium 4.5, bicarb 19, BUN 61, creatinine 1.44, glucose of 136, lactic acid 3.6 => 1.2 troponin negative, TSH 6.1, UA significant for cloudy appearance, trace protein, trace ketones, hyaline casts. EKG done in the ER independently interpreted showed sinus tachycardia heart rate of 122, no ST segment elevation or depression seen, no T-wave inversions seen. Chest x-ray done independently interpreted in the ER showed no acute cardiopulmonary findings. 09/05/2024 Patient seen and examined at bedside. No acute events overnight. Patient assessed by psychiatry and she does not have decision-making capacity at this time, daughter will pursue guardianship. Begin Remeron 7.5 mg for depression at bedtime. Today's labs significant for WBC 8.3, hemoglobin 11.7, sodium 151, BUN 32, AST 60, ALT 48. 09/05/2024 Patient seen and examined at bedside. No acute events overnight. CT brain completed with no acute intracranial process. Daughter is pursuing guardianship. Labs today remarkable for potassium 3.4, BUN 20, glucose 63. 09/07. Patient seen and examined. No acute issues overnight. Vital signs stable 09/08/24: Patient evaluated at bedside today. No acute events overnight. Vital signs stable. Patient mentions feeling better today. Labs today show BUN 18.3, creatinine 0.7, potassium 3.8. 09/09/24: Patient examined today. No acute events overnight. No new complaints. Labs today show hemoglobin 10.8, creatinine 0.9, WBC 6.92. 09/10/24: Patient evaluated at bedside. No new complaints. Labs today show hemoglobin 10.9, potassium 4.1, creatinine 0.9. 09/11/24: Patient seen and examined. Vital signs are stable. She complains of a blister on her left foot. She reports seeing a diesel engine fitter a couple years ago, when they had to take her nails out. Labs today show WBC 8.56, hemoglobin 12.3, potassium 4.8, platelet count 495. 09/12/24: Patient evaluated today. Vital signs are stable. No new complaints today. Labs today show hemoglobin 11.7, platelet count 492, sodium 138. 09/13/24: Patient examined at bedside. Vital signs are stable. No acute events overnight. Labs today show WBC 14.19, sodium 134, anion gap 14.4. . Patient seen and examined. No acute issues overnight. September 15: Eating well. Complaining of some pain in her feet. Forgetful. Consulted speech to do full cognition evaluation. Blood work for anemia was sent out shows iron deficiency. Will order 2 units of Ferrlecit. September 16: Still complaining of pain in the lower extremity doty to the feet. Possible neuropathy. Will add Neurontin 100 twice daily to see if that helps. Getting IV Ferrlecit. well service floor worker looking into discharge planning. Will need outpatient neurology workup for more cognition evaluation September 17: Lower extremity pain much better with Neurontin. Tolerating diet. Spoke to watch case polisher Sera. Looking into rehab. September 18: Comfortable. Tolerating diet. Patient seen with Dr. Pepper from psychiatry. Both of her certify that patient not capable of taking her own decisions. Spoke to social media marketing manager Sera. Looking into [facility] for rehab. At Active Medications Acetaminophen (Acetaminophen Tab 325 Mg Tab) 650 mg PO Q6HR PRN PRN Reason: Mild Pain or Fever > 100.5 Last Admin: 09/18/24 13:58 Dose: 650 mg Alprazolam (Alprazolam 0.25 Mg Tab) 0.25 mg PO BID PRN PRN Reason: Anxiety Last Admin: 09/18/24 13:59 Dose: 0.25 mg Cholecalciferol (Cholecalciferol 25 Mcg (1000 Iu) Tablet) 25 mcg PO DAILY [facility] Last Admin: 09/18/24 09:10 Dose: 25 mcg Dextrose/Water (Dextrose 50% Syringe 50 Ml) 25 ml IVP PER PROTOCOL PRN; Protocol PRN Reason: Hypoglycemia Dextrose/Water (Dextrose 50% Syringe 50 Ml) 50 ml IVP PER PROTOCOL PRN; Protocol PRN Reason: Hypoglycemia Famotidine (Famotidine 20 Mg Tab) 20 mg PO DAILY [facility] Last Admin: 09/18/24 09:10 Dose: 20 mg Ferrous Sulfate (Ferrous Sulfate 325 Mg Tab) 325 mg PO W/LUNCH [facility] Last Admin: 09/18/24 13:56 Dose: 325 mg Gabapentin (Gabapentin 100 Mg Cap) 100 mg PO BID [facility] Last Admin: 09/18/24 09:10 Dose: 100 mg Levothyroxine Sodium (Levothyroxine 88 Mcg Tab) 88 mcg PO DAILY@0600 [facility] Last Admin: 09/18/24 06:05 Dose: 88 mcg Mirtazapine (Mirtazapine 15 Mg Tab) 7.5 mg PO HS [facility] Last Admin: 09/17/24 23:20 Dose: 7.5 mg Naloxone HCl (Naloxone 0.4 Mg/Ml 1 Ml Vial) 0.2 mg IV Q2M PRN PRN Reason: Opioid Reversal Sumatriptan Succinate (Sumatriptan Succinate 50 Mg Tab) 50 mg PO DAILY PRN PRN Reason: Migraine Headache Last Admin: 09/10/24 10:33 Dose: 50 mg On examination: VITAL SIGNS: 97.8, 66, 18, 107 x 70, 94% room air GENERAL APPEARANCE: BMI 16.8, resting in bed HEENT: Normal external appearance of nose and ear. Oral cavity normal EYES: Pupils equal. Conjunctiva normal. NECK: JVD not raised. Mass not palpable. RESPIRATORY: Respiratory effort normal. Lungs clear to auscultation. CARDIOVASCULAR: First and second sounds normal. No edema. ABDOMEN: Soft. Liver and spleen not palpable. No tenderness. No mass palpable. PSYCHIATRY: Sometimes forgetful otherwise able to answer questions. Bit anxious Musculoskeletal: Loss of muscle mass and fat. Prominent bones. INVESTIGATIONS, reviewed in the clinical context: September 15: White count 7.9 hemoglobin 10.9 platelets 467 sodium 139 potassium 4.6 creatinine 0.9 Iron 21 TIBC 3 3 9% saturation 6.19 transferrin 242 ferritin 254 vitamin B12 673 folate 8.8 Acute hepatitis screen: Negative Assessment/Plan: Patient is a 74-year-old female who presents with generalized weakness. Patient is determined to not have decision making capacity and her daughter is pursuing guardianship. PT and OT recommend 24/ rehab. Patient is awaiting placement. 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 Further evaluation outpatient by neurology -Iron deficiency anemia IV Ferrlecit given. Add oral iron #. Left Foot blister -Wound care consulted -Recommend outpatient follow up for possible PAD -Depression, NOS Seen by psychiatrist Dr. Pepper Remeron 7.5 mg nightly started # Does not have medical decision making capacity, due to cognitive impairment This was certified both by myself and psychiatrist Dr. Pepper Daughter is pursuing guardianship, social work on the case #ZORA due to dehydration, resolved #Leukocytosis, likely reactive, resolved #Hypothyroidism - Continue Synthroid -Severe protein calorie malnutrition, BMI 16.8 Add Ensure Enlive 3 times daily Consult dietitian -Full code manager industrial working into authorization for rehab. Other medications to continue.
[2024-09-18 16:58] LABS: Glucose,Whole Blood 97 mg/dL (70-110)
[2024-09-18 20:24] LABS: Glucose,Whole Blood 104 mg/dL (70-110)
[2024-09-19 01:45] VITALS: PULSE 93
[2024-09-19 06:11] LABS: Glucose,Whole Blood 89 mg/dL (70-110)
[2024-09-19 07:59] VITALS: BP 120/75; RESP 18; TEMP 97.6
[2024-09-19 11:29] LABS: Glucose,Whole Blood 79 mg/dL (70-110)
--- NOTE | 2024-09-19 14:53 | P.DS ---
Providers Date of admission: 09/04/24 02:24 Expected date of discharge: 09/19/24 Attending physician: Cristian Bright Consults: 09/04/24 15:22 Consult Physician Routine Consulting Provider: Psychiatry - [facility] Psychiatry Consult Reason/Comments: MDD Do you want consulting provider notified?: Already Contacted Primary care physician: [facility] Course: Patient is a 74-year-old female who presents with fall. Patient states while at home she had tripped over her dog. She states that she has been in bed for the last 1 week. She states she has had poor appetite and low dietary intake. She is unclear as to why she has stayed in bed, but states that she has no family visiting her regularly. Family in room states that she has living situation with feces throughout home. Patient has no stated complaints at this time. Patient reports absence of fever, chills, chest pain, palpitations, diaphoresis, dyspnea, cough, nausea, vomiting, constipation, diarrhea, abdominal pain, weakness, dizziness, headache, and dysuria. Labs in ER significant for WBC 13.1, hemoglobin 16.6, platelets 521, sodium 145, potassium 4.5, bicarb 19, BUN 61, creatinine 1.44, glucose of 136, lactic acid 3.6 => 1.2 troponin negative, TSH 6.1, UA significant for cloudy appearance, trace protein, trace ketones, hyaline casts. EKG done in the ER independently interpreted showed sinus tachycardia heart rate of 122, no ST segment elevation or depression seen, no T-wave inversions seen. Chest x-ray done independently interpreted in the ER showed no acute cardiopulmonary findings. 09/05/2024 Patient seen and examined at bedside. No acute events overnight. Patient assessed by psychiatry and she does not have decision-making capacity at this time, daughter will pursue guardianship. Begin Remeron 7.5 mg for depression at bedtime. Today's labs significant for WBC 8.3, hemoglobin 11.7, sodium 151, BUN 32, AST 60, ALT 48. 09/05/2024 Patient seen and examined at bedside. No acute events overnight. CT brain completed with no acute intracranial process. Daughter is pursuing guardianship. Labs today remarkable for potassium 3.4, BUN 20, glucose 63. 09/07. Patient seen and examined. No acute issues overnight. Vital signs stable 09/08/24: Patient evaluated at bedside today. No acute events overnight. Vital signs stable. Patient mentions feeling better today. Labs today show BUN 18.3, creatinine 0.7, potassium 3.8. 09/09/24: Patient examined today. No acute events overnight. No new complaints. Labs today show hemoglobin 10.8, creatinine 0.9, WBC 6.92. 09/10/24: Patient evaluated at bedside. No new complaints. Labs today show hemoglobin 10.9, potassium 4.1, creatinine 0.9. 09/11/24: Patient seen and examined. Vital signs are stable. She complains of a blister on her left foot. She reports seeing a car manager a couple years ago, when they had to take her nails out. Labs today show WBC 8.56, hemoglobin 12.3, potassium 4.8, platelet count 495. 09/12/24: Patient evaluated today. Vital signs are stable. No new complaints today . Labs today show hemoglobin 11.7, platelet count 492, sodium 138. 09/13/24: Patient examined at bedside. Vital signs are stable. No acute events overnight. Labs today show WBC 14.19, sodium 134, anion gap 14.4. /. Patient seen and examined. No acute issues overnight. September 15: Eating well. Complaining of some pain in her feet. Forgetful. Consulted speech to do full cognition evaluation. Blood work for anemia was sent out shows iron deficiency. Will order 2 units of Ferrlecit. September 16: Still complaining of pain in the lower extremity doty to the feet. Possible neuropathy. Will add Neurontin 100 twice daily to see if that helps. Getting IV Ferrlecit. interior surface insulation worker looking into discharge planning. Will need outpatient neurology workup for more cognition evaluation September 17: Lower extremity pain much better with Neurontin. Tolerating diet. Spoke to caser Sera. Looking into rehab. September 18: Comfortable. Tolerating diet. Patient seen with Dr. Pepper from psychiatry. Both of her certify that patient not capable of taking her own decisions. Spoke to social worker psychiatric Sera. Looking into [facility] for rehab. September 19: Tolerating diet. Patient has been accepted at rehab at [facility] will have patient follow-up with Dr. Gonsalo Cheney from neurology for further neurocognitive testing. Discussion and discharge planning more than 35 minutes On examination: VITAL SIGNS: 97.6, 93, 18, 120 x 75, 99% on room air GENERAL APPEARANCE: BMI 16.8, up in bed, comfortable HEENT: Normal external appearance of nose and ear. Oral cavity normal EYES: Pupils equal. Conjunctiva normal. NECK: JVD not raised. Mass not palpable. RESPIRATORY: Respiratory effort normal. Lungs clear to auscultation. CARDIOVASCULAR: First and second sounds normal. No edema. ABDOMEN: Soft. Liver and spleen not palpable. No tenderness. No mass palpable. PSYCHIATRY: Sometimes forgetful able answer simple questions. Bit anxious Musculoskeletal: Loss of muscle mass and fat. Prominent bones. INVESTIGATIONS, reviewed in the clinical context: September 15: White count 7.9 hemoglobin 10.9 platelets 467 sodium 139 potassium 4.6 creatinine 0.9 Iron 21 TIBC 3 3 9% saturation 6.19 transferrin 242 ferritin 254 vitamin B12 673 folate 8.8 Acute hepatitis screen: Negative Assessment/Plan: Patient is a 74-year-old female who presents with generalized weakness. Patient is determined to not have decision making capacity and her daughter is pursuing guardianship. PT and OT recommend 02/04 rehab. Patient is awaiting placement. 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 Follow-up in August with neurology for further neurocognitive evaluation outpatient -Iron deficiency anemia IV Ferrlecit given. Add oral iron #. Left Foot blister -Wound care consulted -Depression, NOS Seen by psychiatrist Dr. Pepper Remeron 7.5 mg nightly started # Does not have medical decision making capacity, due to cognitive impairment This was certified both by myself and psychiatrist Dr. Pepper Daughter is pursuing guardianship, social work on the case #ZORA due to dehydration, resolved #Leukocytosis, likely reactive, resolved #Hypothyroidism - Continue Synthroid -Severe protein calorie malnutrition, BMI 16.8 Add Ensure Enlive 3 times daily Seen by dietitian -Full code -Medical power of commercial attorney: Mak Galarza Disposition: Rehab at [facility] Plan - Discharge Summary Discharge Rx Participant: No New Discharge Prescriptions: New Ferrous Sulfate [Iron (65 MG Elemental)] 325 mg PO W/LUNCH tab Gabapentin [Neurontin] 100 mg PO BID cap Famotidine [Pepcid] 20 mg PO DAILY tab Mirtazapine [Remeron] 7.5 mg PO HS tab Acetaminophen Tab [Tylenol] 650 mg PO Q6HR PRN tab PRN Reason: Mild Pain Or Fever > 100.5 Cholecalciferol [Vitamin D3 (25 Mcg = 1000 Iu)] 25 mcg PO DAILY tab Continue SUMAtriptan succinate [Imitrex] 50 mg PO DAILY PRN PRN Reason: Migraine Headache Levothyroxine Sodium [Synthroid] 88 mcg PO DAILY Discharge Medication List SUMAtriptan succinate [Imitrex] 50 mg PO DAILY PRN 05/15/14 [History] Levothyroxine Sodium [Synthroid] 88 mcg PO DAILY 09/04/24 [History] Acetaminophen Tab [Tylenol] 650 mg PO Q6HR PRN tab 09/17/24 [Rx] Cholecalciferol [Vitamin D3 (25 Mcg = 1000 Iu)] 25 mcg PO DAILY tab 09/17/24 [Rx] Famotidine [Pepcid] 20 mg PO DAILY tab 09/17/24 [Rx] Ferrous Sulfate [Iron (65 MG Elemental)] 325 mg PO W/LUNCH tab 09/17/24 [Rx] Gabapentin [Neurontin] 100 mg PO BID cap 09/17/24 [Rx] Mirtazapine [Remeron] 7.5 mg PO HS tab 09/17/24 [Rx] Follow up Appointment(s)/Referral(s): Romina Carbajal MD [REFERRING] - 2 Weeks (Neurocognitive assessment) Chevy Wilson DO [Primary Care Provider] - 1 Week [facility], [NON-STAFF] - As Needed None,Stated [REFERRING] - 1-2 days
--- NOTE | 2024-09-25 10:45 | CDI ---
Documentation Clarification Form Date: 09/25/2024 09:40:08 AM From: Radhika Aleman RN CCDS Phone: [phone] Admit Date: 09/04/2024 02:24:00 AM Patient Name: Corinne Hobson Visit Number: [id number] Discharge Date: 09/19/2024 04:45:00 PM ATTENTION: The Clinical Documentation Specialists (CDI) and [facility] Coding Staff appreciate your assistance in clarifying documentation. Please respond to the clarification below the line at the bottom and electronically sign. The CDI & [facility] Coding staff will review the response and follow-up if needed. Please note: Queries are made part of the Legal Health Record. If you have any questions, please contact the author of this message via ITS. Dr: Cristian Bright There is documentation of generalized weakness and syncopal episode, failure to thirve in the HP, 09/04 through to the Discharge summary 09/19. Additional clarification is requested. History/Risk Factors: 64 year old female presents to the ED for evaluation for generalized weakness and a fall. Patient tripped over her dog. She states she has been in bed for the past one week. She has poor appetite and low dietary intake. She is unclear as to why she has stayed in bed. There was feces throughout the home. Medical History: HLD, Thyroid Disorder, migraines and recurrent ear infections. 09/04 HP. Clinical Indicators: LABS: 09/03 Wbc 13.1, Hgb 16.6, Plt 521, Neutrophils 11.2 Chl 110, Carbon Dioxide 19, BUN 61, Cr 1.44, GFR 38, Glucose 136, Lactic Acid 3.6, Calcium 10.4, Magnesium 2.7, AST 59, ALT 40, TSH 6.190, UA: Cloudy, PH 5.0, Specific gravity 1.021, protein trace, ketones trace Hyaline casts 19, urine mucus rare. 09/17: Occupational Therapy: Lives alone, Admitted 09/03/2024 via EMS for syncopal episode, concussion / head injury, failure to thrive, incontinence and anxiety. Feces throughout home, Self-care: Supervision for Bathing, Dressing, Grooming, Toileting and toileting transfer, Bed Mobility. Modified Independent for: Eating. Assistive device: Rolling walker. Scissor gait at times, but kept walker on floor entire time. Does have decreased cognition. Needing / supervision. Moderate Comprehension Impairment. Diminished cognitive processing, poor safety awareness and elevated risk for falls. 09/17 Physical Therapy: Unchanged within functional limits, confused. Patient is pleasantly confused. Decreased strength, poor safety awareness poor cognition. Factors limiting transfer: Poor balance, decreased strength, decreased endurance, poor safety awareness, Impulsiveness, Poor cognition, Impulsive with transfers. 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 Severe protein calorie malnutrition, BMI 16.8. ZORA due to dehydration, resolved. Treatment: 09/03: 0.9ns 1L IVFL Bolus, 09/03 09/04 0.9ns 130cc/hr IV 09/17. Physical Therapy, 09/17 Occupational Therapy, Ensure Enlive 3 times a day Can you please clarify Generalized Weakness? [ ] Age related physical debility [ + ] Other, please specify ___malnutrition from decreased oral intake, secondary to cognitive impairment [ ] Unable to determine (Template Last Revised: November 2020) MTDD
== END 2024-09-19 16:45 | disposition home or self-care (01) | DRG 641 ==
LOC: EC 20:43 → 5NMEDONC 09-04 02:24 → 4SSUR 09-04 06:53
PROVIDERS: ADMIT Hospitalist; ATTEND Hospitalist
DX: E43 Unspecified severe protein-calorie malnutrition (principal); Z68.1 Body mass index [BMI] 19.9 or less, adult; N17.9 Acute kidney failure, unspecified; D50.9 Iron deficiency anemia, unspecified; D72.829 Elevated white blood cell count, unspecified; E03.9 Hypothyroidism, unspecified; E78.5 Hyperlipidemia, unspecified; E86.0 Dehydration; E88.89 Other specified metabolic disorders; H40.9 Unspecified glaucoma; F32.9 Major depressive disorder, single episode, unspecified; R41.82 Altered mental status, unspecified; R79.1 Abnormal coagulation profile; I10 Essential (primary) hypertension; G43.909 Migraine, unspecified, not intractable, without status migrainosus; G62.9 Polyneuropathy, unspecified; R62.7 Adult failure to thrive; G72.9 Myopathy, unspecified; T73.0XXA Starvation, initial encounter; F41.9 Anxiety disorder, unspecified; I45.10 Unspecified right bundle-branch block; S90.822A Blister (nonthermal), left foot, initial encounter; W19.XXXA Unspecified fall, initial encounter; Z79.890 Hormone replacement therapy; Z79.899 Other long term (current) drug therapy; Z87.891 Personal history of nicotine dependence; Z56.0 Unemployment, unspecified; Z60.2 Problems related to living alone; Z79.3 Long term (current) use of hormonal contraceptives; Z86.14 Personal history of Methicillin resistant Staphylococcus aureus infection; Z28.310 Unvaccinated for COVID-19; Z28.21 Immunization not carried out because of patient refusal
CPT/HCPCS: 36415; 51798; 70450; 71046; 71275; 80048; 80053; 80074; 80320; 81001; 82550; 82607; 82728; 82746; 83540; 83550; 83605; 83735; 84145; 84439; 84443; 84484; 85025; 85027; 85379; 85610; 85652; 85730; 86140; 87040; 87636; 93005; 93970; 94760; 96361; 96365; 99285